=== PATIENT | female | born 1960 | race Caucasian/White ===

== ENCOUNTER → 2018-11-08 | Outpatient (REF) | payer MEDICARE, OTHER ==
[2018-11-08 20:07] LABS: BASO # 0.1 10^3/uL (0.0-0.2); BASO % 0.7 % (0.0-1.0); EOS # 0.3 10^3/uL (0.0-0.50); EOS % 2.3 % (0.0-3.0); HEMATOCRIT 37.2 % (36.0-47.0); HEMOGLOBIN 11.8 g/dl (12.0-15.5); LYMPH # 1.3 10^3/uL (1.5-4.5); LYMPH % 10.9 % (24.0-44.0); MEAN CORPUSCULAR HEMOGLOBIN 31.7 pg (27.0-33.0); MEAN CORPUSCULAR HGB CONC 31.7 g/dl (32.0-36.5); MONO # 0.8 10^3/uL (0.0-0.8); MONO % 6.4 % (0.0-5.0); NEUTROPHILS # 9.8 10^3/uL (1.8-7.7); NEUTROPHILS % 79.1 % (36.0-66.0); PLATELET COUNT, AUTOMATED 318 10^3/uL (150-450); RED BLOOD COUNT 3.72 10^6/uL (4.00-5.40); WHITE BLOOD COUNT 12.3 10^3/uL (4.0-10.0)
[2018-11-08 20:35] LABS: HEMOGLOBIN A1c 5.8 %
[2018-11-08 20:54] LABS: ALBUMIN 3.8 GM/DL (3.2-5.2); BILIRUBIN,TOTAL 0.4 MG/DL (0.2-1.0); CALCIUM LEVEL 9.6 MG/DL (8.5-10.1); CHOLESTEROL RISK RATIO 4.295 (<5); CREATININE FOR GFR 2.25 MG/DL (0.55-1.30); FREE T4 0.91 NG/DL (0.76-1.46); GLOMERULAR FILTRATION RATE 23.8 (>51); POTASSIUM SERUM 6.3 MEQ/L (3.5-5.1); THYROID STIMULATING HORMONE 6.72 uIU/ML (0.358-3.740); TOTAL PROTEIN 7.6 GM/DL (6.4-8.2)
== END ==
LOC: M LABDRWAD 19:15
PROVIDERS: ATTEND Physician Assistant
DX: I10 Essential (primary) hypertension (principal); R73.01 Impaired fasting glucose

== ENCOUNTER → 2018-11-25 | Outpatient (REF) | payer MEDICARE ==
[2018-11-25 20:13] LABS: CALCIUM LEVEL 9.6 MG/DL (8.5-10.1); GLOMERULAR FILTRATION RATE 27.2 (>51); POTASSIUM SERUM 5.5 MEQ/L (3.5-5.1)
[2018-11-25 20:22] LABS: FREE T4 0.86 NG/DL (0.76-1.46); THYROID STIMULATING HORMONE 8.21 uIU/ML (0.358-3.740)
== END ==
LOC: M LABDRWAD 19:18 → M LAB REF 19:18
PROVIDERS: ATTEND Physician Assistant
DX: E87.5 Hyperkalemia (principal); E07.9 Disorder of thyroid, unspecified

== ENCOUNTER → 2018-11-25 | Outpatient (REF) | payer MEDICARE, OTHER | LOC: M LAB REF 19:22 | PROVIDERS: ATTEND Family Medicine | DX: E87.5 Hyperkalemia (principal) ==

== ENCOUNTER → 2019-02-03 | Outpatient (REF) | payer MEDICARE ==
[2019-02-03 19:52] LABS: ALBUMIN 4.3 GM/DL (3.2-5.2); BILIRUBIN,TOTAL 0.3 MG/DL (0.2-1.0); CALCIUM LEVEL 9.7 MG/DL (8.5-10.1); CREATININE FOR GFR 2.03 MG/DL (0.55-1.30); GLOMERULAR FILTRATION RATE 26.8 (>51); POTASSIUM SERUM 5.8 MEQ/L (3.5-5.1); THYROID STIMULATING HORMONE 5.49 uIU/ML (0.358-3.740); TOTAL PROTEIN 7.9 GM/DL (6.4-8.2)
[2019-02-03 20:05] LABS: HEMATOCRIT 39.5 % (36.0-47.0); HEMOGLOBIN 12.4 g/dl (12.0-15.5); MEAN CORPUSCULAR HEMOGLOBIN 30.9 pg (27.0-33.0); MEAN CORPUSCULAR HGB CONC 31.4 g/dl (32.0-36.5); MEAN CORPUSCULAR VOLUME 98.5 fl (80.0-96.0); PLATELET COUNT, AUTOMATED 362 10^3/uL (150-450); RED BLOOD COUNT 4.01 10^6/uL (4.00-5.40); WHITE BLOOD COUNT 13.5 10^3/uL (4.0-10.0)
[2019-02-03 20:06] LABS: AMORPHOUS SEDIMENT LARGE (NEGATIVE); APPEARANCE, URINE TURBID (CLEAR); BACTERIA, URINE AUTO NEGATIVE (NEGATIVE); BILIRUBIN, URINE AUTO NEGATIVE (NEGATIVE); BLOOD, URINE BLOOD 2+ (NEGATIVE); COLOR, URINE YELLOW (YELLOW); GLUCOSE, URINE (UA) AUTO NEGATIVE (NEGATIVE); KETONE, URINE AUTO NEGATIVE (NEGATIVE); LEUKOCYTE ESTERASE, URINE AUTO NEGATIVE (NEGATIVE); MUCUS, URINE SMALL (NEGATIVE); NITRITE, URINE AUTO NEGATIVE (NEGATIVE); PROTEIN, URINE AUTO NEGATIVE (NEGATIVE); RBC, URINE AUTO 116 /HPF (0-3); SPECIFIC GRAVITY URINE AUTO 1.016 (1.002-1.035); SQUAMOUS EPITHELIAL CELL UR AU 5 /HPF (0-6); UROBILINOGEN, URINE AUTO 0.2 mg/dL (0.0-2.0); WBC, URINE AUTO 3 /HPF (0-3)
[2019-02-03 20:47] LABS: MALB URINE SIEMENS 24.2 MG/L; MAU/CREAT RATIO 24.2 MCG/MG (0.0-30.0)
== END ==
LOC: M SFHCADAM 15:03
PROVIDERS: ATTEND Physician Assistant
DX: E03.9 Hypothyroidism, unspecified (principal); N18.3 Chronic kidney disease, stage 3 (moderate)
CPT/HCPCS: 80053; 81001; 82043; 84439; 84443; 85027; G0463

== ENCOUNTER → 2019-03-09 | Outpatient (CLI) | payer MEDICARE ==
--- NOTE | 2019-03-10 11:46 | REP ---
Bilateral foot series: Eight views. History: Pain in both feet. No known injury. Findings: Four views of the left foot demonstrate moderate midfoot osteoarthritis affecting the naviculocuneiform and tarsometatarsal articulations with spur formation and some early fragmentation. There is prominent plantar calcaneal spurring. There are dystrophic soft-tissue calcifications in the plantar soft tissues. The plantar arch appears somewhat flattened. The arthropathy is most compatible with neuropathic. There is some mild osteoarthritis at the first metatarsal phalangeal joint as well. Four views of the right foot demonstrate similar but less prominent findings at least regarding the tarsometatarsal articulations. There is osteoarthritis with spur formation at the naviculocuneiform articulation. Prominent plantar calcaneal spurring is also noted on the right and there are dystrophic soft-tissue calcification in the plantar soft tissues consistent with chronic plantar fasciitis. On the right there is diffuse dorsal soft tissue swelling. There is minimal osteoarthritis at the first MTP joint on the right. 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 Heel spurs and evidence of chronic calcific plantar fasciitis are noted bilaterally. Electronically Signed by Alex Ledesma MD 03/10/2019 01:09 P
== END ==
LOC: M ADAMS 19:14
PROVIDERS: ATTEND Physician Assistant
DX: M19.071 Primary osteoarthritis, right ankle and foot (principal); M19.072 Primary osteoarthritis, left ankle and foot; M77.31 Calcaneal spur, right foot; M77.32 Calcaneal spur, left foot; M79.671 Pain in right foot; M79.672 Pain in left foot

== ENCOUNTER → 2019-03-23 | Outpatient (CLI) | payer MEDICARE ==
--- NOTE | 2019-03-24 23:41 | ECHO ---
DATE OF PROCEDURE: 03/23/2019 DATE OF : 1960 AGE: 58 REFERRING PROVIDER: Astrid Khan NP PATIENT LOCATION: Outpatient. REASON FOR THE ECHOCARDIOGRAM: Edema. 2D MEASUREMENTS: IVS: 1.6 cm LV: 3.7 cm LVPW: 1.6 cm LA: 3.8 cm Aorta: 3.7 cm IVC: 1.4 cm DOPPLER MEASUREMENT: Peak velocity across the aortic valve: 1.4 m/s Peak velocity across the LVOT: 0.95 m/s Mitral E: 0.67, Mitral A: 1.1 with a ratio of 0.6 2D COMMENTS: 1. Normal left ventricular size and systolic function. There is moderately increased left ventricular wall thickness. The estimated global left ventricular systolic ejection fraction is 60-65%. 2. Normal left atrium. Normal right atrium and right ventricle. 3. The atrial septum appeared to be normal without evidence of defect or shunt. 4. Borderline enlarged aortic root at 3.7 cm. 5. No pericardial effusion seen. 6. Normal aortic valve. Mildly calcified mitral annulus with normal anterior mitral valve leaflet motion. Normal tricuspid valve. The pulmonic valve and proximal pulmonary artery branches were not well visualized. 7. The inferior vena was normal in size, central venous pressure is most likely normal. DOPPLER: No significant valvular abnormalities detected. Abnormal relaxation pattern was noted across the mitral valve leaflets as well as the mitral valve annulus consistent with features of grade 1 left ventricular diastolic dysfunction. IMPRESSION: 1. Normal global left ventricular systolic function (dictation cut off) moderate concentric left ventricular hypertrophy. There are some features of left ventricular diastolic dysfunction manifested by abnormal relaxation. 2. The study was technically limited due to poor acoustic window. 3. The aortic root was borderline enlarged at 3.7 cm.
== END ==
LOC: M CARPUL 10:05
PROVIDERS: ATTEND Physician Assistant
DX: R60.0 Localized edema (principal)

== ENCOUNTER → 2019-03-23 | Outpatient (CLI) | payer MEDICARE ==
--- NOTE | 2019-03-24 07:17 | REP ---
MR LUMBAR SPINE WITHOUT CONTRAST: HISTORY: Radiculopathy. Decreased signal intensity on T2-weighted images is present in the lumbar intervertebral discs. The discs are decreased in height. These findings are consistent with disc degeneration. A diffuse disc bulge is present at the L1-2 level. There is minimal compression of the thecal sac. There is hypertrophy of the posterior articulating facets. The L1 nerves exit the neural foramina without compression. A diffuse bulge and small paracentral disc extrusion are present at the L2-3 level. There is inferior migration of disc material. There is hypertrophy of the ligamenta flava and posterior articulating facets These findings produce minimal central canal stenosis. The 2 nerves exit the neural foramina without compression. A diffuse disc bulge is present at the L3-4 level. There is minimal compression of the thecal sac. There is hypertrophy of the posterior articulating facets. The L3 nerves exit the neural foramina without compression. A diffuse disc bulge is present at the L4-5 level. There is hypertrophy of the ligamenta flava and posterior articulating facets. There are 3 mm of grade 1 spondylolisthesis of L4 on 5. These findings produce mild central canal stenosis. The L4 nerves exit the neural foramina without compression. A diffuse disc bulge is present at the L5-S1 level. This abuts the thecal sac. There is hypertrophy of the posterior articulating facets. The L5 nerves exit the neural foramina without compression. The conus medullaris is normal in appearance terminating at the level of the T12-L1 intervertebral disc . A hemangioma is present in the L1-vertebral body. . Increased signal intensity on T2-weighted images is present in the end plates of the T12, and L3-S1 vertebral bodies. This represents degenerative change. IMPRESSION: 1. Diffuse disc bulges at the L1-2 and L3-4 levels with minimal thecal sac compression. 2. Minimal central canal stenosis at the L2-3 level secondary to disc bulge, disc extrusion, ligamentous and facet hypertrophy. 3. Mild central canal stenosis at the L4-5 level secondary to disc bulge, ligamentous and facet hypertrophy and grade 1 spondylolisthesis. 4. Diffuse disc bulge at the L5-S1 level this abuts the thecal sac. Electronically Signed by Nicho Patterson MD 03/24/2019 08:30 A
--- NOTE | 2019-03-24 08:02 | REP ---
MRI BILATERAL KNEES: TECHNIQUE: Axial proton density fat saturation, sagittal proton density T2 STIR, water excitation, coronal proton density, proton density fat saturation. RIGHT KNEE: Extensive complex tears are seen of the anterior and posterior horns of both the medial and lateral menisci. Anterior cruciate ligament is not well visualized and is at least partially torn. Posterior cruciate ligament also is not well visualized and is at least partially torn. Collateral ligaments are intact. Extensor mechanism is intact. Moderate edema is seen anterior to the patellar tendon. There is severe diffuse spurring. There is severe chondromalacia globally. Moderate subchondral cyst changes and marrow edema are seen in the medial femoral condyle and tibial plateau, more mild involving the lateral femoral condyle and tibia plateau. The large joint body appears to be located medial to the patellofemoral joint measuring approximately 1.5 x 0.8 x 1.8 cm. There is a moderate joint effusion. Very small amount of medial popliteal fossa fluid is seen. There is mild fluid in the proximal tibiofibular articulation. Mild venous varicosities are seen in the lateral soft tissues. IMPRESSION: Extensive complex tears of the anterior and posterior horns of both the medial and lateral menisci. The anterior and posterior cruciate ligaments are not well visualized and are least partially torn. Severe global chondromalacia and severe diffuse spurring at the margins of the joint. Subchondral marrow edema and cystic changes seen in the femoral condyles and tibial plateau, more so medially. Moderate joint effusion. Multiple joint bodies. LEFT KNEE: There are tears centrally of the anterior and posterior horns of the lateral meniscus. There are extensive tears with maceration of the anterior and posterior horns of the medial meniscus. The anterior cruciate ligament is not visualized and appears to be torn. There is increased signal involving the posterior cruciate ligament which appears partially torn. There is increased signal in the superior aspect of the medial collateral ligament suggesting a partial tear. Lateral collateral ligament appears intact. Extensor mechanism appears intact. Diffuse severe spurring is noted. There is moderately severe diffuse chondromalacia of the patella. There is severe chondromalacia along the femoral condyles and tibial plateaus with moderate subchondral marrow edema and cystic change in the medial femoral condyle and tibial plateau. There is a moderate joint effusion. There appear to be several joint bodies present. Mild fluid extends into the medial popliteal fossa with two cartilaginous or calcific bodies within the fluid, the larger measuring 1.8 cm in diameter. IMPRESSION: Extensive complex tears of the anterior and posterior horns of the medial meniscus with a macerated appearance. There are tears centrally of the anterior and posterior horns of the lateral meniscus. There appears to be a complete tear of the anterior cruciate ligament. There appears to be a partial tear of the posterior cruciate ligament. There is a partial tear of the superior aspect of the medial collateral ligament. There is severe chondromalacia of the femoral condyles and tibial plateaus with moderate subchondral marrow edema and cystic change in the medial femoral condyle and tibial plateau. There is moderate to moderate severe chondromalacia diffusely of the patellar cartilage. Severe diffuse spurring noted. Moderate joint effusion with several small joint bodies. Small amount of fluid in the medial popliteal fossa with what appear to be two cartilaginous or calcific bodies within this area of fluid the larger measuring 1.8 cm in maximum diameter. Electronically Signed by Johny Marquez MD 03/24/2019 12:42 P
== END ==
LOC: M RAD 10:13
PROVIDERS: ATTEND Nurse Practitioner Family
DX: S83.271A Complex tear of lateral meniscus, current injury, right knee, initial encounter (principal); S83.231A Complex tear of medial meniscus, current injury, right knee, initial encounter; M25.461 Effusion, right knee; S83.232A Complex tear of medial meniscus, current injury, left knee, initial encounter; M25.462 Effusion, left knee; M51.36 Other intervertebral disc degeneration, lumbar region; M51.37 Other intervertebral disc degeneration, lumbosacral region; M25.562 Pain in left knee; M25.561 Pain in right knee; M54.16 Radiculopathy, lumbar region; N18.4 Chronic kidney disease, stage 4 (severe); R60.0 Localized edema

== ENCOUNTER → 2019-03-23 | Outpatient (CLI) | payer MEDICARE ==
--- NOTE | 2019-03-23 16:47 | REP ---
Clinical: Stage IV chronic renal disease. Technique: Real time long scale ultrasound examination using curved array transducer. Findings: Bilateral kidneys are relatively normal in contour, size, echogenicity, and reniform shape. Mildly increased central sinus fat (left greater than right) is consistent with chronic renal disease. No hydronephrosis, nephrolithiasis, cystic or renal mass lesion appreciated. Right kidney measures 10.1 x 4.1 x 4.6 cm. Left kidney measures 10.0 x 3.6 x 4.6 cm. Impression: Findings compatible with chronic renal disease. Electronically Signed by Speedy Lyon MD 03/23/2019 04:39 P
== END ==
LOC: M RAD 10:10
PROVIDERS: ATTEND Internal Medicine Nephrology
DX: N18.4 Chronic kidney disease, stage 4 (severe) (principal)

== ENCOUNTER → 2019-09-09 | Outpatient (REF) | payer MEDICARE ==
[2019-09-09 19:20] LABS: C REACTIVE PROTEIN QUANTITATIV 0.44 MG/DL (0.00-0.30); RHEUMATOID FACTOR QUANT < 10.0 IU/ML (<15.0)
[2019-09-09 19:32] LABS: VITAMIN B12 LEVEL 370 PG/ML
[2019-09-09 20:52] LABS: FOLATE 2.8 NG/ML
[2019-09-14 00:06] LABS: ANA (HEP2) Positive (.); ANA SPINDLE APPARATUS PATTERN >1:1280 (.); FREE LAMBDA LIGHT CHAINS SERUM 28.5 mg/L (5.7-26.3); Lyme Disease IgG Ab 18 kDa Ban Present (.); Lyme Disease IgG Ab 23 kDa Ban Absent (.); Lyme Disease IgG Ab 28 kDa Ban Absent (.); Lyme Disease IgG Ab 30 kDa Ban Absent (.); Lyme Disease IgG Ab 39 kDa Ban Absent (.); Lyme Disease IgG Ab 41 kDa Ban Absent (.); Lyme Disease IgG Ab 45 kDa Ban Absent (.); Lyme Disease IgG Ab 58 kDa Ban Absent (.); Lyme Disease IgG Ab 66 kDa Ban Absent (.); Lyme Disease IgG Ab 93 kDa Ban Absent (.); Lyme Disease IgG West Blot Int Negative (.); Lyme Disease IgG/IgM Antibodie 0.93 ISR (0.00-0.90); Lyme Disease IgM Ab 23 kDa Ban Absent (.); Lyme Disease IgM Ab 39 kDa Ban Absent (.); Lyme Disease IgM Ab 41 kDa Ban Absent (.); Lyme Disease IgM Ab Quantitati 0.88 index (0.00-0.79); Lyme Disease IgM West Blot Int Negative (.)
== END ==
LOC: M SFHCADAM 16:37
PROVIDERS: ATTEND Physician Assistant
DX: R60.9 Edema, unspecified (principal); M25.50 Pain in unspecified joint; D75.89 Other specified diseases of blood and blood-forming organs
CPT/HCPCS: 82607; 82746; 83883; 85652; 86038; 86140; 86431; 86617; 90682; G0008; G0463

== ENCOUNTER → 2019-10-10 | Outpatient (REF) | payer MEDICARE ==
[2019-10-11 10:40] LABS: ALBUMIN 4.38 GM/DL (3.29-5.55); ALBUMIN % 54.8 % (55.8-66.1); ALPHA-1-GLOBULINS 0.44 GM/DL (0.17-0.41)
[2019-10-11 10:41] LABS: ALPHA-1-GLOBULIN % 5.5 % (2.9-4.9); ALPHA-2-GLOBULINS 0.95 GM/DL (0.42-0.99); ALPHA-2-GLOBULINS % 11.9 % (7.1-11.8); BETA-1-GLOBULINS 0.55 GM/DL (0.28-0.60); BETA-1-GLOBULINS % 6.9 % (4.7-7.2); BETA-2-GLOBULINS 0.43 GM/DL (0.19-0.55); BETA-2-GLOBULINS % 5.4 % (3.2-6.5); GAMMA GLOBULIN % 15.5 % (11.1-18.8); GAMMA GLOBULINS 1.24 GM/DL (0.65-1.58)
[2019-10-13 14:08] LABS: FREE LAMBDA LIGHT CHAINS URINE 20.6 mg/L (0.24-6.66); KAPPA/LAMBDA RATIO URINE 12.82 (2.04-10.37)
== END ==
LOC: M SFHCADAM 17:59
PROVIDERS: ATTEND Physician Assistant
DX: D89.89 Other specified disorders involving the immune mechanism, not elsewhere classified (principal)

== ENCOUNTER 2020-11-21 16:54 | Observation (INO) | payer MEDICARE ==
[~2020-11-21] VITALS: Ht 167.6 cm; Wt 214.3 kg
--- OUTSIDE RECORDS SUMMARY | 2020-11-21 17:11 | CCD ---
Author Author [facility] Organization [facility] Address Unknown Phone Unavailable Care Team Providers Care Pipe Straightener Name Role Phone Astrid Khan Unavailable PROBLEMS Type Condition ICD9-CM Code [id number] Code Onset Dates Condition S tatus SNOMED Code Notes Problem Arthritis M19.90 Active 4352495 Problem Essential hypertension I10 Active 77012811 Problem MAYELA (obstructive sleep apnea) G47.33 Active 78 361724 Problem Acquired hypothyroidism E03.9 Active 00428750 2 Problem CKD (chronic kidney disease) stage 4, GFR 15-29 ml/min N18.4 Active 363490912 Problem Moderate episode of recurrent major depressive disorder F33.1 Active 566497785 Problem Positive BRANDIN (antinuclear antibody) R76.8 Acti ve 607532281 Problem Other chronic pain G89.29 Active 63078351 Problem Stage 3 chronic kidney disease N18.3 Active 4 93357386 Problem Morbid obesity E66.01 Active 940903598 Problem Peripheral edema R60.9 Active 061037602 Problem Macrocytosis D75.89 Active 619628625 Problem Secondary hyperparathyroidism N25.81 Active 91 143293 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 992771 07 ALLERGIES No Known Allergies ENCOUNTERS from 1960 to 2020-11-01 Encounter Location Date Provider Diagnosis [address] [place] [address] Oct, Sanford Khan IMMUNIZATIONS Vaccine Route Administration Date Status Influenza (18 yrs & older) Flublok IM Intramuscular Sep 09, 2019 Administered SOCIAL HISTORY Tobacco Use: Social History Observation Description Date Details (start date - stop date) Never Smoker Sex Assigned At : Social History Observation Description Sex Assigned At Unknown Audit Question Answer Notes Total Score: 0 Interpretation: Alcohol Education Language: Question Answer Notes Languages spoken: Somali Domestic Violence: Question Answer Notes Status: Sexual Hx: Question Answer Notes Had sex in the last 12 months (vaginal, oral, or anal)? No LMP: age 47 Have you ever had an STD? No Drug and Alcohol Question Answer Notes Total Score: 0 Interpretation: No problems reported Alcohol Screening: Question Answer Notes Did you have a drink containing alcohol in the past year? No Points 0 Interpretation Negative BMI Care Goal Follow-Up Question Answer Notes Above Normal BMI Follow-Up Dietary management educatio n, guidance, and counseling Tobacco Use: Question Answer Notes Are you a: never smoker REASON FOR REFERRAL No Information VITAL SIGNS No information MEDICATIONS Medication SIG (Take, Route, Frequency, Duration) Notes Start Da te End Date Status Tizanidine HCl 4 MG 1 tablet as needed Orally Three times a day prn Not-Taking Magnesium 250 MG 1 tablet Orally Daily Active Chlorthalidone 25 MG 1 tablet in the morning with food Orally Once a day for 30 day(s) Sep, Active Tylenol Extra Strength 500 MG 1 tablet as needed Orally every 6 hrs Active Cymbalta 60 MG 1 capsule Orally Once a day for 30 day(s) 1 Jan, Active Drisdol 13688 UNIT 1 capsule Orally weekly Active Calcitriol 0.25 MCG 1 capsule Orally Once a day for 30 Days Active MethylPREDNISolone 4 MG TAKE DIRECTED ON PACKAGE Oral for 6 Active Amlodipine Besylate 5 MG 1 tablet Orally Once a day for 30 Active Wheelchair - Bariatric Dx: 25.571 Daily for _ March, Active PROCEDURES No Information RESULTS No Results REASON FOR VISIT appt MEDICAL (GENERAL) HISTORY Type Description Date Medical History MAYELA per Abnormal Home Sleep Study - Decl ined CPAP 2018 Medical History HTN Medical History Chronic LE edema from Venous insuff - wears compression stockings. Medical History Arthritis Feet & Knees (Had Synvisc by Ortho years ago) - Was on Celebrex, then Vicodin, then Trmadol, then Meloxicam and Oxycodone Medical History CKD stage 4 per labs in November 2018 - i mproved stage III Medical History Morbid Obesity Medical History depression - on Citalopram in past. 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 Medical History Diffuse Disc Bulging with Mi nimal spinal Stenosis L2-3, L4-5 - following with [facility] - getting injections Medical History BL knee pain - MRI showed Me niscal tears, moderate to severe chondromalacia with spiurring - had injections with pain solutions Medical History Secondary Hyperparathyroidism Surgical History No know Surgical history Hospitalization History cellulitis 05/2007 Goals Section No Information Health Concerns No Information MEDICAL EQUIPMENT No Information MENTAL STATUS No Information FUNCTIONAL STATUS No Information ASSESSMENTS No Information PLAN OF TREATMENT Medication Medication Name Sig Start Date Stop Date Amlodipine Besylate 5 MG 1 tablet Orally Once a day for 30 Calcitriol 0.25 MCG 1 capsule Orally Once a day for 30 Days Chlorthalidone 25 MG 1 tablet in the morning with food Orally Once a day for 30 day(s) Sep, Cymbalta 60 MG 1 capsule Orally Once a day for 30 day(s) Jan Insurance Providers Payer Name Payer Address Payer Phone Insured Name Patient Relati onship to Insured Coverage Start Date Coverage End Date MEDICARE Part A and B [address] [facility] [address] URSZULA REYNOSO self
--- OUTSIDE RECORDS SUMMARY | 2020-11-21 17:11 | CCD ---
Author Author [facility] Organization [facility] Address Unknown Phone Unavailable Care Team Providers Care Content Checker Name Role Phone Astrid Khan Unavailable PROBLEMS Type Condition ICD9-CM Code [id number] Code Onset Dates Condition S tatus SNOMED Code Notes Problem Arthritis M19.90 Active 2641341 Problem Essential hypertension I10 Active 19771945 Problem MAYELA (obstructive sleep apnea) G47.33 Active 78 224572 Problem Acquired hypothyroidism E03.9 Active 85231209 2 Problem CKD (chronic kidney disease) stage 4, GFR 15-29 ml/min N18.4 Active 460868972 Problem Moderate episode of recurrent major depressive disorder F33.1 Active 093427650 Problem Positive BRANDIN (antinuclear antibody) R76.8 Acti ve 289087588 Problem Other chronic pain G89.29 Active 28491076 Problem Stage 3 chronic kidney disease N18.3 Active 4 68231373 Problem Morbid obesity E66.01 Active 032881662 Problem Peripheral edema R60.9 Active 339265340 Problem Macrocytosis D75.89 Active 386819519 Problem Secondary hyperparathyroidism N25.81 Active 91 302330 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 054617 07 ALLERGIES No Known Allergies ENCOUNTERS from 1960 to 2020-08-29 Encounter Location Date Provider Diagnosis [address] [place] [address] Dec, Sanford Khan Lumbar radiculopathy M54.16 IMMUNIZATIONS Vaccine Route Administration Date Status Influenza (18 yrs & older) Flublok IM Intramuscular Sep 09, 2019 Administered SOCIAL HISTORY Tobacco Use: Social History Observation Description Date Details (start date - stop date) Never Smoker Sex Assigned At : Social History Observation Description Sex Assigned At Unknown Audit Question Answer Notes Total Score: 0 Interpretation: Alcohol Education Language: Question Answer Notes Languages spoken: [place] Domestic Violence: Question Answer Notes Status: Sexual [...] MEDICATIONS Medication SIG (Take, Route, Frequency, Duration) Start Date En d Date Status Cymbalta 60 MG 1 capsule Orally Once a day for 30 day(s) Jan, Active Magnesium 250 MG 1 tablet Orally Daily Ac tive Chlorthalidone 25 MG 1 tablet in the morning with food Orally Once a day for 30 day(s) Sep, Active Amlodipine Besylate 5 MG 1 tablet Orally Once a day for 30 Days Active Tylenol Extra Strength 500 MG 1 tablet as needed Orally every 6 hrs Active Drisdol 05319 UNIT 1 capsule Orally weekly Active MethylPREDNISolone 4 MG TAKE DIRECTED ON PACKAGE Oral for 6 Active Calcitriol 0.25 MCG 1 capsule Orally Once a day for 30 Days Active Tizanidine HCl 4 MG 1 tablet as needed Orally Three times a day prn Not-Taking Wheelchair - Bariatric Dx: 25.571 Daily for _ March, Active PROCEDURES No Information RESULTS No Results REASON FOR VISIT amlodipine,calcitriol,duloxetine 60 MEDICAL (GENERAL) HISTORY Type Description Date Medical [...] No Information FUNCTIONAL STATUS No Information ASSESSMENTS Encounter Date Diagnosis Notes Dec, Lumbar radiculopathy (ICD-10 - M54.16) PLAN OF TREATMENT Medication Medication Name Sig Start Date Stop Date Cymbalta 60 MG 1 capsule Orally Once a day for 30 day(s) Jan Calcitriol 0.25 MCG 1 capsule Orally Once a day for 30 Days Chlorthalidone 25 MG 1 tablet in the morning with food Orally Once a day for 30 day(s) Sep, Amlodipine Besylate 5 MG 1 tablet Orally Once a day for 30 Days Insurance Providers Payer Name Payer Address Payer Phone Insured Name Patient Relati onship to Insured Coverage Start Date Coverage End Date MEDICARE Part A and B [address] [facility] [id number] [phone] URSZULA REYNOSO
--- OUTSIDE RECORDS SUMMARY | 2020-11-21 17:11 | CCD ---
Author Author [facility] Organization [facility] Address Unknown Phone Unavailable Care Team Providers Care Government Minister Name Role Phone SandrastevensonIglesia Unavailable PROBLEMS Type Condition ICD9-CM Code [id number] Code Onset Dates Condition S tatus SNOMED Code Notes Problem Arthritis M19.90 Active 8466301 Problem Essential hypertension I10 Active 71992865 Problem MAYELA (obstructive sleep apnea) G47.33 Active 78 334466 Problem Acquired hypothyroidism E03.9 Active 63967676 2 Problem CKD (chronic kidney disease) stage 4, GFR 15-29 ml/min N18.4 Active 284821416 Problem Moderate episode of recurrent major depressive disorder F33.1 Active 774805427 Problem Positive BRANDIN (antinuclear antibody) R76.8 Acti ve 423525315 Problem Other chronic pain G89.29 Active 31629895 Problem Stage 3 chronic kidney disease N18.3 Active 4 28618145 Problem Morbid obesity E66.01 Active 186447155 Problem Peripheral edema R60.9 Active 727391681 Problem Macrocytosis D75.89 Active 942745949 Problem Secondary hyperparathyroidism N25.81 Active 91 104419 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 992970 07 ALLERGIES No Known Allergies ENCOUNTERS from 1960 to 2020-10-10 Encounter Location Date Provider Diagnosis [address] [place] [address] Oct, Vinnie Khan IMMUNIZATIONS Vaccine Route Administration Date Status [...] Education Language: Question Answer Notes Languages spoken: [place] Konger Domestic Violence: Question Answer Notes Status: Sexual [...] Notes Start Da te End Date Status MethylPREDNISolone 4 MG TAKE DIRECTED ON PACKAGE Oral for 6 Active Magnesium 250 MG 1 tablet Orally Daily Active Chlorthalidone 25 MG 1 tablet in the morning with food Orally Once a day for 30 day(s) Sep, Active Tylenol Extra Strength 500 MG 1 tablet as needed Orally every 6 hrs Active Amlodipine Besylate 5 MG 1 tablet Orally Once a day for 30 Active Drisdol 74943 UNIT 1 capsule Orally weekly Active Tizanidine HCl 4 MG 1 tablet as needed Orally Three times a day prn Not-Taking Cymbalta 60 MG 1 capsule Orally Once a day for 30 day(s) Jan, Active Calcitriol 0.25 MCG 1 capsule Orally Once a day for 30 Days Active Wheelchair - Bariatric Dx: 25.571 Daily for _ March, Active PROCEDURES No Information RESULTS No Results REASON FOR VISIT calcitriol MEDICAL (GENERAL) HISTORY Type Description Date Medical [...] Medication Name Sig Start Date Stop Date Calcitriol 0.25 MCG 1 capsule Orally Once a day for 30 Days Cymbalta 60 MG 1 capsule Orally Once a day for 30 day(s) Jan Chlorthalidone 25 MG 1 tablet in the morning with food Orally Once a day for 30 day(s) Sep, Amlodipine Besylate 5 MG 1 tablet Orally Once a day for 30 Insurance Providers Payer Name Payer Address Payer Phone Insured Name Patient Relati onship to Insured Coverage Start Date Coverage End Date MEDICARE Part A and B [address] [facility] [phone] URSZULA REYNOSO self
--- OUTSIDE RECORDS SUMMARY | 2020-11-21 17:11 | CCD ---
Author Author [facility] Organization [facility] Address Unknown Phone Unavailable Care Team Providers Care Strip Cutter Name Role Phone Alexandraalma deliaIglesia Unavailable PROBLEMS Type Condition ICD9-CM Code [id number] Code Onset Dates Condition S tatus SNOMED Code Notes Problem Arthritis M19.90 Active 9651838 Problem Essential hypertension I10 Active 29203811 Problem MAYELA (obstructive sleep apnea) G47.33 Active 78 394191 Problem Acquired hypothyroidism E03.9 Active 25119118 2 Problem CKD (chronic kidney disease) stage 4, GFR 15-29 ml/min N18.4 Active 037333300 Problem Moderate episode of recurrent major depressive disorder F33.1 Active 388530604 Problem Positive BRANDIN (antinuclear antibody) R76.8 Acti ve 671834678 Problem Other chronic pain G89.29 Active 12849505 Problem Stage 3 chronic kidney disease N18.3 Active 4 16932261 Problem Morbid obesity E66.01 Active 315758814 Problem Peripheral edema R60.9 Active 738441420 Problem Macrocytosis D75.89 Active 267130739 Problem Secondary hyperparathyroidism N25.81 Active 91 550616 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 394010 07 ALLERGIES No Known Allergies ENCOUNTERS from 1960 to 2020-11-17 Encounter Location Date Provider Diagnosis [address] [place] [address] Nov, Vinnie Khan IMMUNIZATIONS Vaccine Route Administration Date [...] Education Language: Question Answer Notes Languages spoken: Martiniquais Domestic Violence: Question Answer Notes Status: Sexual [...] for 30 day(s) 1 Jan, Active Drisdol 03624 UNIT 1 capsule Orally weekly Active Calcitriol 0.25 MCG 1 capsule Orally Once a day for 30 Days Active MethylPREDNISolone 4 MG TAKE DIRECTED ON PACKAGE Oral for 6 Active Amlodipine Besylate 5 MG 1 tablet Orally Once a day for 30 Active Wheelchair - Bariatric Dx: 25.571 Daily for _ March, Active PROCEDURES No Information RESULTS No Results REASON FOR VISIT legs swollen MEDICAL (GENERAL) HISTORY Type Description Date Medical [...] Once a day for 30 day(s) Jan Next Appt Details Provider Name:Astrid Khan, 2020-11 01:30:00 PM, [address], [place], [address], Insurance Providers Payer Name Payer Address Payer Phone Insured Name Patient Relati onship to Insured Coverage Start Date Coverage End Date MEDICARE Part A and B [address] [id number] [id number]
--- OUTSIDE RECORDS SUMMARY | 2020-11-21 17:11 | CCD ---
Author Author [facility] Organization [facility] Address Unknown Phone Unavailable Care Team Providers Care Teacher Of Gifted Students Name Role Phone Jumalon, M Angle STEAM DRIER OPERATOR Unavailable Unavailable Jumalon, M Angle STEAM DRIER OPERATOR Unavailable Unavailable Jumalon, M Angle STEAM DRIER OPERATOR Unavailable Unavailable Jumalon, M Angle STEAM DRIER OPERATOR Unavailable Unavailable Jumalon, M Angle STEAM DRIER OPERATOR Unavailable Unavailable Jumalon, M Angle STEAM DRIER OPERATOR Unavailable Unavailable Jumalon, M Angle STEAM DRIER OPERATOR Unavailable Unavailable Jumalon, M Angle STEAM DRIER OPERATOR Unavailable Unavailable Jumalon, M Angle STEAM DRIER OPERATOR Unavailable Unavailable Jumalon, M Angle STEAM DRIER OPERATOR Unavailable Unavailable Jumalon, M Angle STEAM DRIER OPERATOR Unavailable Unavailable Jumalon, M Angle STEAM DRIER OPERATOR Unavailable Unavailable Jumalon, M Angle STEAM DRIER OPERATOR Unavailable Unavailable Jumalon, M Angle STEAM DRIER OPERATOR Unavailable Unavailable Jumalon, M Angle STEAM DRIER OPERATOR Unavailable Unavailable Jumalon, M Angle STEAM DRIER OPERATOR Unavailable Unavailable Jumalon, M Angle STEAM DRIER OPERATOR Unavailable Unavailable Jumalon, M Angle STEAM DRIER OPERATOR Unavailable Unavailable Jumalon, M Angle STEAM DRIER OPERATOR Unavailable Unavailable Jumalon, M Angle STEAM DRIER OPERATOR Unavailable Unavailable Jumalon, M Angle STEAM DRIER OPERATOR Unavailable Unavailable Jumalon, M Angle STEAM DRIER OPERATOR Unavailable Unavailable Jumalon, M Angle STEAM DRIER OPERATOR Unavailable Unavailable Jumalon, M Angle STEAM DRIER OPERATOR Unavailable Unavailable Jumalon, M Angle STEAM DRIER OPERATOR Unavailable Unavailable Jumalon, M Angle STEAM DRIER OPERATOR Unavailable Unavailable Jumalon, M Angle STEAM DRIER OPERATOR Unavailable Unavailable Jumalon, M Angle STEAM DRIER OPERATOR Unavailable Unavailable Rohith Moore MD Unavailable Unavailable BolRohith salgado MD Unavailable Unavailable BolRohith salgado MD Unavailable Unavailable BolRohith salgado MD Unavailable Unavailable BolRohith salgado MD Unavailable Unavailable BolRohith salgado MD Unavailable Unavailable BolRohith salgado MD Unavailable Unavailable BolRohith salgado MD Unavailable Unavailable BolRohith salgado MD Unavailable Unavailable BolRohith salgado MD Unavailable Unavailable BolRohith salgado MD Unavailable Unavailable BolRohith salgado MD Unavailable Unavailable BolRohith salgado MD Unavailable Unavailable BolRohith salgado MD Unavailable Unavailable BolRohith salgado MD Unavailable Unavailable BolRohith salgado MD Unavailable Unavailable BolRohith salgado MD Unavailable Unavailable Rohith Moore MD Unavailable Unavailable BolRohith salgado MD Unavailable Unavailable Rohith Moore MD Unavailable Unavailable BolRohith salgaod MD Unavailable Unavailable Rohith Moore MD Unavailable Unavailable BolRohith salgado MD Unavailable Unavailable Rohith Moore MD Unavailable Unavailable BolRohith salgado MD Unavailable Unavailable BolRohith salgado MD Unavailable Unavailable BolRohith salgado MD Unavailable Unavailable BolRohith salgado MD Unavailable Unavailable Rohith Moore MD Unavailable Unavailable BolRohith salgado MD Unavailable Unavailable Rohith Moore MD Unavailable Unavailable BolRohith salgado MD Unavailable Unavailable BolRohith salgado MD Unavailable Unavailable BolRohith salgado MD Unavailable Unavailable BolRohith salgado MD Unavailable Unavailable BolRohith salgado MD Unavailable Unavailable BolRohith salgado MD Unavailable Unavailable BolRohith salgado MD Unavailable Unavailable BolRohith salgado MD Unavailable Unavailable Bolla, S Jg MD Unavailable Unavailable Bolla, S Jg MD Unavailable Unavailable Bolla, S Jg MD Unavailable Unavailable Bolla, S Jg MD Unavailable Unavailable Bolla, S Jg MD Unavailable Unavailable Bolla, S Jg MD Unavailable Unavailable Bolla, S Jg MD Unavailable Unavailable Bolla, S Gj MD Unavailable Unavailable Bolla, S Jg MD Unavailable Unavailable Re-disclosure Warning The records that you are about to access may contain information from federally-assisted alcohol or drug abuse programs. If such information is present, then the following federally mandated warning applies: This information has been disclosed to you from records protected by federal confidentiality rules (42 CFR part 2). The federal rules prohibit you from making any further disclosure of this information unless further disclosure is expressly permitted by the written consent of the person to whom it pertains or as otherwise permitted by 42 CFR part 2. A general authorization for the release of medical or other information is NOT sufficient for this purpose. The Federal rules restrict any use of the information to criminally investigate or prosecute any alcohol or drug abuse patient.The records that you are about to access may contain highly sensitive health information, the redisclosure of which is protected by Article 27-F of the [facility] Public Health law. If you continue you may have access to information: Regarding HIV / AIDS; Provided by facilities licensed or operated by the [facility] Office of Mental Health; or Provided by the [facility] Office for People With Developmental Disabilities. If such information is present, then the following [facility] mandated warning applies: This information has been disclosed to you from confidential records which are protected by state law. State law prohibits you from making any further disclosure of this information without the specific written consent of the person to whom it pertains, or as otherwise permitted by law. Any unauthorized further disclosure in violation of state law may result in a fine or prison sentence or both. A general authorization for the release of medical or other information is NOT sufficient authorization for further disc losure. Family History Family Member Name Family Member Gender Family Member Status Date o f Status Description Data Source(s) Unknown Unknown Problem [facility] ([facility] Encounters Encounter Providers Location Date Indications Data Source(s ) Unknown [address] [facility], [facility] [address] 11/15/2020 12:00:00 AM EST eCW1 ([facility]) Unknown [address] [facility] [address] 11/07/2020 12:00:00 AM EST eCW1 ([facility]) Unknown [address] [facility] [address] 10/30/2020 12:00:00 AM EST eCW1 ([facility]) Unknown [address] [facility] [address] 10/30/2020 12:00:00 AM EST eCW1 ([facility]) Unknown [address] [facility] [address] 10/09/2020 12:00:00 AM EST eCW1 ([facility]) Angle Quesada, ABLE BODIED WATCHMAN: [address], [facility] [address], Ph. Attender: Angle Quesada [facility] - [facility] 06/11/2020 12:00:00 AM EDT ATHE NA ([facility]) Jg Moore MD: [address], [address] [place] [id number]- [facility], Ph. [phone] Attender: Jg Moore MD [place] - [facility] 04/09/2020 12:00:00 AM EDT MEENA ([facility]) Jg Moore MD: [address], [place] [address], Ph. [phone] Attender: Jg Moore MD [place] - [facility] 04/09/2020 12:00:00 AM EDT MEENA ([facility]) Unknown [address] [facility] [address] 01/24/2020 12:00:00 AM EDT eCW1 ([facility]) Jg Moore MD: [address], [place] [address], Ph. Attender: Jg Moore MD [place] - [facility] 12/28/2019 12:00:00 AM EST MEENA ([facility]) Jg Moore MD: [address], [place] [address], Ph. Attender: Jg Moore MD [place] - [facility] 12/28/2019 12:00:00 AM EST MEENA ([facility]) Jg Moore MD: [address], [place] [address], Ph. Attender: Jg Moore MD [place] - [facility] 12/28/2019 12:00:00 AM EST MEENA ([facility]) [address] [address] 12/09/2019 12:00:00 AM EST eCW1 ([facility]) [address] [address] 12/09/2019 12:00:00 AM EST eCW1 ([facility]) [address] [address] 12/06/2019 12:00:00 AM EST eCW1 ([facility]) Angle Quesada, ABLE BODIED WATCHMAN: [address], [place] [address], Ph. Attender: Angle Quesada [facility] 11/24/2019 12:00:00 AM EST ATHE NA ([facility]) Angle Quesada, ABLE BODIED WATCHMAN: [address], [place] [address], Ph. Attender: Angle Quesada [facility] 11/24/2019 12:00:00 AM EST ATHE NA ([facility]) Angle Quesada, ABLE BODIED WATCHMAN: [address], [place] [address], Ph. [facility] 11/24/2019 12:00:00 AM EST ATHE NA ([facility]) Angle Quesada, ABLE BODIED WATCHMAN: [address], [place] [address], Ph. [facility] 11/24/2019 12:00:00 AM EST ATHE NA ([facility]) [place] [address] [facility] [address] 11/15/2019 12:00:00 AM EST eCW1 ([facility]) [address] [place] [address] 11/07/2019 12:00:00 AM EST eCW1 ([facility]) Medications Medication Brand Name Start Date Product Form Dose Route Admi nistrative Instructions Pharmacy Instructions Status Indications Reaction Description Data Source(s) 5 mg 10/10/2020 12:00:00 AM EST tablet 30 TAKE ONE TABLET BY MOUTH EVERY DAY TAKE ONE TABLET BY MOUTH EVERY DAY SOLD: 10/13/2020 [facility] 0.25 mcg 10/10/2020 12:00:00 AM EST capsule 30 TAKE ONE CAPSULE BY MOUTH EVERY DAY TAKE ONE CAPSULE BY MOUTH EVERY DAY SOLD: 10/13/2020 [facility] 60 mg 08/31/2020 12:00:00 AM EDT capsule,delayed release (DR/EC) 30 TAKE ONE CAPSULE BY MOUTH EVERY DAY TAKE ONE CAPSULE BY MOUTH EVERY DAY SOLD: 09/06/2020 [facility] 60 mg 07/19/2020 12:00:00 AM EDT capsule,delayed release (DR/EC) 30 TAKE ONE CAPSULE BY MOUTH EVERY DAY TAKE ONE CAPSULE BY MOUTH EVERY DAY SOLD: 07/22/2020 [facility] 60 mg 06/11/2020 12:00:00 AM EDT capsule,delayed release (DR/EC) 30 TAKE ONE CAPSULE BY MOUTH EVERY DAY TAKE ONE CAPSULE BY MOUTH EVERY DAY SOLD: 06/14/2020 [facility] 60 mg 03/14/2020 12:00:00 AM EDT capsule,delayed release (DR/EC) 30 TAKE ONE CAPSULE BY MOUTH EVERY DAY TAKE ONE CAPSULE BY MOUTH EVERY DAY SOLD: 03/19/2020 [facility] 60 mg 03/14/2020 12:00:00 AM EDT capsule,delayed release (DR/EC) 30 TAKE ONE CAPSULE BY MOUTH EVERY DAY TAKE ONE CAPSULE BY MOUTH EVERY DAY SOLD: 03/19/2020 [facility] 60 mg 02/03/2020 12:00:00 AM EDT capsule,delayed release (DR/EC) 30 TAKE ONE CAPSULE BY MOUTH EVERY DAY TAKE ONE CAPSULE BY MOUTH EVERY DAY SOLD: 02/06/2020 [facility] Calcitriol 0.13277 MG Oral Capsule 0.25 mcg CALCITRIOL 01/24/2020 12:00:00 AM EDT capsule 30 TAKE ONE CAPSULE BY MOUTH SLAVA DAY TAKE ONE CAPSULE BY MOUTH EVERY DAY SOLD: 03/06/2020 [facility] 5 mg 01/24/2020 12:00:00 AM EDT tablet 30 TAKE ONE TABLET BY MOUTH EVERY DAY TAKE ONE TABLET BY MOUTH EVERY DAY SOLD: 03/06/2020 [facility] 5 mg 01/24/2020 12:00:00 AM EDT tablet 30 TAKE ONE TABLET BY MOUTH EVERY DAY TAKE ONE TABLET BY MOUTH EVERY DAY SOLD: 01/26/2020 [facility] Calcitriol 0.52815 MG Oral Capsule 0.25 mcg CALCITRIOL 01/24/2020 12:00:00 AM EDT capsule 30 TAKE ONE CAPSULE BY MOUTH SLAVA DAY TAKE ONE CAPSULE BY MOUTH EVERY DAY SOLD: 07/11/2020 [facility] 5 mg 01/24/2020 12:00:00 AM EDT tablet 30 TAKE ONE TABLET BY MOUTH EVERY DAY TAKE ONE TABLET BY MOUTH EVERY DAY SOLD: 05/31/2020 [facility] 5 mg 01/24/2020 12:00:00 AM EDT tablet 30 TAKE ONE TABLET BY MOUTH EVERY DAY TAKE ONE TABLET BY MOUTH EVERY DAY SOLD: 08/21/2020 [facility] 5 mg 01/24/2020 12:00:00 AM EDT tablet 30 TAKE ONE TABLET BY MOUTH EVERY DAY TAKE ONE TABLET BY MOUTH EVERY DAY SOLD: 07/02/2020 [facility] 0.25 mcg 01/24/2020 12:00:00 AM EDT capsule 30 TAKE ONE CAPSULE BY MOUTH EVERY DAY TAKE ONE CAPSULE BY MOUTH EVERY DAY SOLD: 08/21/2020 [facility] Calcitriol 0.06247 MG Oral Capsule 0.25 mcg CALCITRIOL 01/24/2020 12:00:00 AM EDT capsule 30 TAKE ONE CAPSULE BY MOUTH EV SLAVA DAY TAKE ONE CAPSULE BY MOUTH EVERY DAY SOLD: 04/12/2020 [facility] Calcitriol 0.20916 MG Oral Capsule 0.25 mcg CALCITRIOL 01/24/2020 12:00:00 AM EDT capsule 30 TAKE ONE CAPSULE BY MOUTH EV SLAVA DAY TAKE ONE CAPSULE BY MOUTH EVERY DAY SOLD: 05/31/2020 [facility] 5 mg 01/24/2020 12:00:00 AM EDT tablet 30 TAKE ONE TABLET BY MOUTH EVERY DAY TAKE ONE TABLET BY MOUTH EVERY DAY SOLD: 04/12/2020 [facility] Calcitriol 0.67368 MG Oral Capsule 0.25 mcg CALCITRIOL 01/24/2020 12:00:00 AM EDT capsule 30 TAKE ONE CAPSULE BY MOUTH EV SLAVA DAY TAKE ONE CAPSULE BY MOUTH EVERY DAY SOLD: 01/26/2020 [facility] 60 mg 12/26/2019 12:00:00 AM EST capsule,delayed release (DR/EC) 30 TAKE ONE CAPSULE BY MOUTH EVERY DAY TAKE ONE CAPSULE BY MOUTH EVERY DAY SOLD: 12/28/2019 [facility] 5 mg 11/04/2019 12:00:00 AM EST tablet 30 TAKE ONE TABLET BY MOUTH EVERY DAY TAKE ONE TABLET BY MOUTH EVERY DAY SOLD: 12/12/2019 [facility] 5 mg 11/04/2019 12:00:00 AM EST tablet 30 TAKE ONE TABLET BY MOUTH EVERY DAY TAKE ONE TABLET BY MOUTH EVERY DAY SOLD: 11/08/2019 [facility] 25 mg 09/09/2019 12:00:00 AM EST tablet 30 TAKE 1 TABLET BY MOUTH IN THE MORNING WITH FOOD ONCE A DAY TAKE 1 TABLET BY MOUTH IN THE MORNING WI TH FOOD ONCE A DAY SOLD: 02/06/2020 [facility] 25 mg 09/09/2019 12:00:00 AM EST tablet 30 TAKE 1 TABLET BY MOUTH IN THE MORNING WITH FOOD ONCE A DAY TAKE 1 TABLET BY MOUTH IN THE MORNING WI TH FOOD ONCE A DAY SOLD: 10/23/2019 [facility] 25 mg 09/09/2019 12:00:00 AM EST tablet 30 TAKE 1 TABLET BY MOUTH IN THE MORNING WITH FOOD ONCE A DAY TAKE 1 TABLET BY MOUTH IN THE MORNING [facility] FOOD ONCE A DAY SOLD: 11/24/2019 [facility] 25 mg 09/09/2019 12:00:00 AM EST tablet 30 TAKE 1 TABLET BY MOUTH IN THE MORNING WITH FOOD ONCE A DAY TAKE 1 TABLET BY MOUTH IN THE MORNING [facility] FOOD ONCE A DAY SOLD: 12/28/2019 [facility] 25 mg 09/09/2019 12:00:00 AM EST tablet 30 TAKE 1 TABLET BY MOUTH IN THE MORNING WITH FOOD ONCE A DAY TAKE 1 TABLET BY MOUTH IN THE MORNING [facility] FOOD ONCE A DAY SOLD: 09/21/2019 [facility] 25 mg 09/09/2019 12:00:00 AM EST tablet 30 TAKE 1 TABLET BY MOUTH IN THE MORNING WITH FOOD ONCE A DAY TAKE 1 TABLET BY MOUTH IN THE MORNING [facility] FOOD ONCE A DAY SOLD: 03/19/2020 [facility] 5 mg 08/31/2019 12:00:00 AM EDT tablet 30 TAKE ONE TABLET BY MOUTH EVERY DAY TAKE ONE TABLET BY MOUTH EVERY DAY SOLD: 10/06/2019 [facility] Calcitriol 0.05316 MG Oral Capsule 0.25 mcg CALCITRIOL 07/26/2019 12:00:00 AM EDT capsule 30 TAKE ONE CAPSULE BY MOUTH EV SLAVA DAY TAKE ONE CAPSULE BY MOUTH EVERY DAY SOLD: 11/12/2019 [facility] Calcitriol 0.96792 MG Oral Capsule 0.25 mcg CALCITRIOL 07/26/2019 12:00:00 AM EDT capsule 30 TAKE ONE CAPSULE BY MOUTH EV SLAVA DAY TAKE ONE CAPSULE BY MOUTH EVERY DAY SOLD: 12/24/2019 [facility] Calcitriol 0.81550 MG Oral Capsule 0.25 mcg CALCITRIOL 07/26/2019 12:00:00 AM EDT capsule 30 TAKE ONE CAPSULE BY MOUTH EV SLAVA DAY TAKE ONE CAPSULE BY MOUTH EVERY DAY SOLD: 10/06/2019 [facility] 60 mg 05/27/2019 12:00:00 AM EDT capsule,delayed release (DR/EC) 30 TAKE ONE CAPSULE BY MOUTH EVERY DAY TAKE ONE CAPSULE BY MOUTH EVERY DAY SOLD: 10/06/2019 [facility] 60 mg 05/27/2019 12:00:00 AM EDT capsule,delayed release (DR/EC) 30 TAKE ONE CAPSULE BY MOUTH EVERY DAY TAKE ONE CAPSULE BY MOUTH EVERY DAY SOLD: 11/12/2019 [facility] methylprednisolone 4 mg tablets in a dose pack [id number] completed methylprednisolone 4 mg tablets in a dose pack MEENA ([facility]) methylprednisolone 4 mg tablets in a dose pack [id number] completed methylprednisolone 4 mg tablets in a dose pack MEENA ([facility]) methylprednisolone 4 mg tablets in a dose pack [id number] completed methylprednisolone 4 mg tablets in a dose pack MEENA ([facility]) methylprednisolone 4 mg tablets in a dose pack [id number] completed methylprednisolone 4 mg tablets in a dose pack MEENA ([facility]) Insurance Providers Payer name Policy type / Coverage type Policy ID Covered constitution party ID Covered constitution party's relationship to lewis Policy Lewis Plan Information MEDICARE [id number] SP [id number] [facility]-Medicare Part B [id number] ANS-Medicare Part B [id number] [facility]-Medicare Part B [id number] MEDICARE [id number] SP [id number] ANS-Medicare Part B [id number] Medicare Natl Gov't Servi Medicare Primary [id number] Self [id number] Medicare Natl Gov't Servi Medicare Primary [id number] Self [id number] ANSI-Medicare Part B [id number] ANSI-Medicare Part B [id number] ANSI-Medicare Part B [id number] ANSI-Medicare Part B [id number] ANSI-Medicare Part B [id number] [facility] Community Plan Commercial [id number] Self [id number] [place] [id number] Self [id number] [facility] Community Plan Commercial [id number] Self [id number] [place] Primary [id number] Self [id number] MEDICARE [id number] SP [id number] A [facility] [id number] SP [id number] [facility] [id number] SP [id number] [facility] Community Plan Commercial [id number] Self [id number] [facility] Community Plan Commercial [id number] Self [id number] [employer] O [id number] S [id number] [employer] O [id number] S [id number] [employer] [id number] SP [id number] P UNAVAILABLE UNAVAILA BLE OTHER WORKERS COMPENSATION [id number] SP [id number] Problems, Conditions, and Diagnoses Code Display Name Description Problem Type Effective Dates Data Source(s) N18.3 Chronic kidney disease stage 3 Stage 3 chronic kidney disease Problem 12/09/2019 12:00:00 AM EST eCW1 ([facility]) R76.8 [id number] Positive BRANDIN (antinuclear antibody) Probl em 12/09/2019 12:00:00 AM EST eCW1 ([facility]) N18.3 Chronic kidney disease stage 3 Stage 3 chronic kidney disease Problem 12/09/2019 12:00:00 AM EST eCW1 ([facility]) R76.8 [id number] Positive BRANDIN (antinuclear antibody) Probl em 12/09/2019 12:00:00 AM EST eCW1 ([facility]) Surgeries/Procedures Procedure Description Date Indications Data Source(s) TELEPHONE (INTERMEDIATE) 12/09/2019 12:00:00 AM EST eCW1 ([facility]) Results ID Date Data Source [id number] 04/09/2020 12:00:00 AM EDT MEENA ([facility]) Name Value Range Interpretation Code Description Data Faiza rce(s) Supporting Document(s) ID Date Data Source [id number] 04/09/2020 12:00:00 AM EDT [facility] Name Value Range Interpretation Code Description Data Faiza rce(s) Supporting Document(s) SARS-CoV-2 [facility] This lab was ordered by [facility]-COVID19 and reported by [facility]. Procedure Vital Signs ID Date Data Source UNK Name Value Range Interpretation Code Description Data Source(s) Systolic blood pressure 152 mm[Hg] 152 mm[Hg] A THENA ([facility]) Body height 66 [in_i] 66 [in_i] MEENA ([facility]) Diastolic blood pressure 95 mm[Hg] 95 mm[Hg] MEENA ([facility]) Systolic blood pressure 152 mm[Hg] 152 mm[Hg] A THENA ([facility]) Body height 66 [in_i] 66 [in_i] MEENA ([facility]) Diastolic blood pressure 95 mm[Hg] 95 mm[Hg] MEENA ([facility]) Systolic blood pressure 152 mm[Hg] 152 mm[Hg] A THENA ([facility]) Body height 66 [in_i] 66 [in_i] MEENA ([facility]) Diastolic blood pressure 95 mm[Hg] 95 mm[Hg] MEENA ([facility]) Systolic blood pressure 152 mm[Hg] 152 mm[Hg] A THENA ([facility]) Body height 66 [in_i] 66 [in_i] MEENA ([facility]) Diastolic blood pressure 95 mm[Hg] 95 mm[Hg] MEENA ([facility]) Patient Treatment Plan of Care Planned Activity Planned Date Details Description Data Source (s) methylprednisolone 4 mg tablets in a dose pack MEENA ([facility]) methylprednisolone 4 mg tablets in a dose pack MEENA ([facility]) methylprednisolone 4 mg tablets in a dose pack MEENA ([facility]) methylprednisolone 4 mg tablets in a dose pack MEENA ([facility])
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
--- OUTSIDE RECORDS SUMMARY | 2020-11-21 17:11 | CCD ---
Author Author [facility] Organization [facility] Address Unknown Phone Unavailable Care Team Providers Care Welt Beater Name Role Phone SonaliSanford jerezina Unavailable PROBLEMS Type Condition ICD9-CM Code [id number] Code Onset Dates Condition S tatus SNOMED Code Notes Problem Arthritis M19.90 Active 5561841 Problem Essential hypertension I10 Active 32241147 Problem MAYELA (obstructive sleep apnea) G47.33 Active 78 760669 Problem Acquired hypothyroidism E03.9 Active 30485741 2 Problem CKD (chronic kidney disease) stage 4, GFR 15-29 ml/min N18.4 Active 921755326 Problem Moderate episode of recurrent major depressive disorder F33.1 Active 634559065 Problem Positive BRANDIN (antinuclear antibody) R76.8 Acti ve 613594627 Problem Other chronic pain G89.29 Active 83663108 Problem Stage 3 chronic kidney disease N18.3 Active 4 31871217 Problem Morbid obesity E66.01 Active 412645538 Problem Peripheral edema R60.9 Active 052632114 Problem Macrocytosis D75.89 Active 839193863 Problem Secondary hyperparathyroidism N25.81 Active 91 484237 Problem [place]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 672006 07 ALLERGIES No Known Allergies ENCOUNTERS from 1960 to 2020-11-08 Encounter Location Date Provider Diagnosis [address] [place] [address] Oct, Reg mir Khan Lumbar radiculopathy M54.16 ; Stage 3 chronic kidney disease N18.3 ; [place]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 ; Essential hypertension I10 ; Positive BRANDIN (antinuclear antibody) R76.8 ; Secondary hyperparathyroidism N25.81 ; Acquired hypothyroidism E03.9 and Screening for diabetes mellitus Z13.1 IMMUNIZATIONS Vaccine Route Administration Date Status Influenza (18 yrs & older) Flublok IM Intramuscular Sep 09, 2019 Administered SOCIAL HISTORY Tobacco Use: Social History Observation Description Date Details (start date - stop date) Never Smoker Sex Assigned At : Social History Observation Description Sex Assigned At Unknown Audit Question Answer Notes Total Score: 0 Interpretation: Alcohol Education Language: Question Answer Notes Languages spoken: Serbian Domestic Violence: Question Answer Notes Status: Sexual [...] for 30 day(s) 1 Jan, Active Drisdol 14306 UNIT 1 capsule Orally weekly Active Calcitriol 0.25 MCG 1 capsule Orally Once a day for 30 Days Active MethylPREDNISolone 4 MG TAKE DIRECTED ON PACKAGE Oral for 6 Active Amlodipine Besylate 5 MG 1 tablet Orally Once a day for 30 Active Wheelchair - Bariatric Dx: 25.571 Daily for _ March, Active PROCEDURES No Information RESULTS No Results REASON FOR VISIT refill MEDICAL (GENERAL) HISTORY Type Description Date Medical [...] STATUS No Information ASSESSMENTS Encounter Date Diagnosis Assessment Notes Treatment Notes Treatm ent Clinical Notes Oct, Lumbar radiculopathy (ICD-10 - M54.16) Oct, Stage 3 chronic kidney disease (ICD-10 - N18.3) Oct, [place] light chain disease (ICD-10 - D89.89) Oct, Essential hypertension (ICD-10 - I10) Oct, Positive BRANDIN (antinuclear antibody) (ICD-10 - R7 6.8) Oct, Secondary hyperparathyroidism (ICD-10 - N25.81) Oct, Acquired hypothyroidism (ICD-10 - E03.9) Oct, Screening for diabetes mellitus (ICD-10 - Z13.1) PLAN OF TREATMENT Medication Medication Name Sig [...] Once a day for 30 day(s) Jan Future Test Test Name Order Date CBC with Differential [id number] Comprehensive Metabolic Profile (CMP) 93134361 FREE T4 & TSH PANEL 13003086 HEMOGLOBIN A1c 45407184 MICROALBUMIN RANDOM 25077976 BRANDIN TITER & PATTERN [id number] Insurance Providers Payer Name Payer Address Payer Phone Insured Name Patient Relati onship to Insured Coverage Start Date Coverage End Date MEDICARE Part A and B [address] [facility] [address] URSZULA REYNOSO
[2020-11-21] MEDS ORDERED: VITA-199 PO ×2 (17:20→20:55)
[2020-11-21] MEDS ORDERED: MAGN400C2 PO (17:20)
[2020-11-21] MEDS ORDERED: AMLO1TAB24 (17:20)
[2020-11-21] MEDS ORDERED: ACET-897 PO (17:20)
[2020-11-21] MEDS ORDERED: CALC1CAP31 (17:20)
--- OUTSIDE RECORDS SUMMARY | 2020-11-21 18:07 | CCD ---
Author Author [facility] Organization [facility] Address Unknown Phone Unavailable Care Team Providers Care Comb Setter Name Role Phone Jumalon, M Angle [employer] Unavailable Unavailable Jumalon, M Angle [employer] Unavailable Unavailable Jumalon, M Angle [employer] Unavailable Unavailable Jumalon, M Angle [employer] Unavailable Unavailable Jumalon, M Angle [employer] Unavailable Unavailable Jumalon, M Angle [employer] Unavailable Unavailable Jumalon, M Angle [employer] Unavailable Unavailable Jumalon, M Angle [employer] Unavailable Unavailable Jumalon, M Angle [employer] Unavailable Unavailable Jumalon, M Angle [employer] Unavailable Unavailable Jumalon, M Angle [employer] Unavailable Unavailable Jumalon, M Angle [employer] Unavailable Unavailable Jumalon, M Angle [employer] Unavailable Unavailable Jumalon, M Angle [employer] Unavailable Unavailable Jumalon, M Angle [employer] Unavailable Unavailable Jumalon, M Angle [employer] Unavailable Unavailable Jumalon, M Angle [employer] Unavailable Unavailable Jumalon, M Angle [employer] Unavailable Unavailable Jumalon, M Angle [employer] Unavailable Unavailable Jumalon, M Angle [employer] Unavailable Unavailable Jumalon, M Angle [employer] Unavailable Unavailable Jumalon, M Angle [employer] Unavailable Unavailable Jumalon, M Angle [employer] Unavailable Unavailable Jumalon, M Angle [employer] Unavailable Unavailable Jumalon, M Angle [employer] Unavailable Unavailable Jumalon, M Angle [employer] Unavailable Unavailable Jumalon, M Angle [employer] Unavailable Unavailable Jumalon, M Angle [employer] Unavailable Unavailable Rohith Moore MD Unavailable Unavailable [...] Unavailable Unavailable Rohith Moore MD Unavailable Unavailable Rohith Moore MD Unavailable Unavailable Rohith Moore MD Unavailable Unavailable Rohith Moore MD Unavailable Unavailable Rohith Moore MD Unavailable Unavailable Rohith Moore MD Unavailable Unavailable Rohith Moore MD Unavailable Unavailable Rohith Moore MD Unavailable Unavailable Rohith Moore MD Unavailable Unavailable Rohith Moore MD Unavailable Unavailable BolRohith salgado MD Unavailable Unavailable Rohith Moore MD Unavailable Unavailable BolRohith salgado MD Unavailable Unavailable Rohith Moore MD Unavailable Unavailable Rohith Moore MD Unavailable Unavailable Rohith Moore MD Unavailable Unavailable Rohith Moore MD Unavailable Unavailable BolRohith salgado MD Unavailable Unavailable BolRohith salgado MD Unavailable Unavailable BolRohith salgado MD Unavailable Unavailable BolRohith salgado MD Unavailable Unavailable BolRohith salgado MD Unavailable Unavailable BolRohith salgado MD Unavailable Unavailable Bolla, S Jg MEMBRENO Unavailable Unavailable Bolla, S Jg MD Unavailable [...] is protected by Article 27-F of the [facility] Public Health law. If you continue you may have access to information: Regarding HIV / AIDS; Provided by facilities licensed or operated by the [facility] Office of Mental Health; or Provided by the [facility] Office for People With Developmental Disabilities. If such information is present, then the following [facility] mandated warning applies: This information has [...] law may result in a fine or residential sentence or both. A general authorization for the release of medical or other information is NOT sufficient authorization for further disc losure. Family History Family Member Name Family Member Gender Family Member Status Date o f Status Description Data Source(s) Unknown Unknown Problem [facility] ([facility] Encounters Encounter Providers Location Date Indications Data Source(s ) Unknown [address] [facility] [address] 11/15/2020 12:00:00 AM EST eCW1 ([facility]) [place] [address] [facility] [address] 11/07/2020 12:00:00 AM EST eCW1 ([facility]) [place] [address] [facility] [address] 10/30/2020 12:00:00 AM EST eCW1 ([facility]) [place] [address] [facility] [address] 10/30/2020 12:00:00 AM EST eCW1 ([facility]) [place] [address] [facility] [address] 10/09/2020 12:00:00 AM EST eCW1 ([facility]) Angle Quesada, MARINE OIL TERMINAL SUPERINTENDENT: [address] [facility] [address], [facility] [place] [address], Ph. Attender: Angle Quesada [facility] - [facility] 06/11/2020 12:00:00 AM EDT ATHE NA ([facility]) Jg Moore MD: [address] [facility] [address], [facility] [place] [address], Ph. [phone] Attender: Jg Moore MD NE - [facility] 04/09/2020 12:00:00 AM EDT MEENA ([facility]) Jg Moore MD: [address] [facility] [address], [facility] [place] [address], Ph. [phone] Attender: Jg Moore MD NE - [facility] 04/09/2020 12:00:00 AM EDT MEENA ([facility]) [place] [address] [facility] [address] 01/24/2020 12:00:00 AM EDT eCW1 ([facility]) Jg Moore MD: [address], [place] [address], Ph. Attender: Jg Moore MD NE - [facility] 12/28/2019 12:00:00 AM EST MEENA ([facility]) Jg Moore MD: [address], [facility] [place] [address], Ph. Attender: Jg Moore MD NE - [facility] 12/28/2019 12:00:00 AM EST MEENA ([facility]) Jg Moore MD: [address] [facility] [address], [place] [address], Ph. Attender: Jg Moore MD NE - [facility] 12/28/2019 12:00:00 AM EST MEENA ([facility]) [address] [address] 12/09/2019 12:00:00 AM EST eCW1 ([facility]) [address] [address] 12/09/2019 12:00:00 AM EST eCW1 ([facility]) [address] [address] 12/06/2019 12:00:00 AM EST eCW1 ([facility]) Angle Quesada, MARINE OIL TERMINAL SUPERINTENDENT: [address], [place] [address], Ph. Attender: Angle Quesada [facility] - [facility] 11/24/2019 12:00:00 AM EST ATHE NA ([facility]) Angle Quesada, MARINE OIL TERMINAL SUPERINTENDENT: [address], [place] [address], Ph. Attender: Angle Quesada [facility] 11/24/2019 12:00:00 AM EST ATHE NA ([facility]) Angle Quesada, MARINE OIL TERMINAL SUPERINTENDENT: [address], [place] [address], Ph. [facility] 11/24/2019 12:00:00 AM EST ATHE NA ([facility]) Angle Quesada, MARINE OIL TERMINAL SUPERINTENDENT: [address], [place] [address], Ph. Attender: Angle Quesada [facility] 11/24/2019 12:00:00 AM EST ATHE NA ([facility]) [facility] [address] [facility] [address] 11/15/2019 12:00:00 AM EST eCW1 ([facility]) [facility] [address] [facility] [address] 11/07/2019 12:00:00 AM EST eCW1 ([facility]) Medications Medication Brand Name Start Date Product [...] EVERY DAY SOLD: 02/06/2020 [facility] Calcitriol 0.41075 MG Oral Capsule 0.25 mcg CALCITRIOL 01/24/2020 [...] EVERY DAY SOLD: 01/26/2020 [facility] Calcitriol 0.55906 MG Oral Capsule 0.25 mcg CALCITRIOL 01/24/2020 [...] EVERY DAY SOLD: 08/21/2020 [facility] Calcitriol 0.09011 MG Oral Capsule 0.25 mcg CALCITRIOL 01/24/2020 12:00:00 AM EDT capsule 30 TAKE ONE CAPSULE BY MOUTH EV SLAVA DAY TAKE ONE CAPSULE BY MOUTH EVERY DAY SOLD: 04/12/2020 [facility] Calcitriol 0.08914 MG Oral Capsule 0.25 mcg CALCITRIOL 01/24/2020 12:00:00 AM EDT capsule 30 TAKE ONE CAPSULE BY MOUTH EV SLAVA DAY TAKE ONE CAPSULE BY MOUTH EVERY DAY SOLD: 05/31/2020 [facility] 5 mg 01/24/2020 12:00:00 AM EDT tablet 30 TAKE ONE TABLET BY MOUTH EVERY DAY TAKE ONE TABLET BY MOUTH EVERY DAY SOLD: 04/12/2020 [facility] Calcitriol 0.86896 MG Oral Capsule 0.25 mcg CALCITRIOL 01/24/2020 [...] 1 TABLET BY MOUTH IN THE MORNING [facility] FOOD ONCE A DAY SOLD: 10/23/2019 [facility] 25 mg 09/09/2019 12:00:00 AM EST tablet 30 TAKE 1 TABLET BY MOUTH IN THE MORNING WITH FOOD ONCE A DAY TAKE 1 TABLET BY MOUTH IN THE MORNING [facility] FOOD ONCE A DAY SOLD: 11/24/2019 [facility] 25 mg 09/09/2019 12:00:00 AM EST tablet 30 TAKE 1 TABLET BY MOUTH IN THE MORNING WITH FOOD ONCE A DAY TAKE 1 TABLET BY MOUTH IN THE MORNING [facility] FOOD ONCE A DAY SOLD: 12/28/2019 [facility] 25 mg 09/09/2019 12:00:00 AM EST tablet 30 TAKE 1 TABLET BY MOUTH IN THE MORNING WITH FOOD ONCE A DAY TAKE 1 TABLET BY MOUTH IN THE MORNING [facility] FOOD ONCE A DAY SOLD: 09/21/2019 [facility] 25 mg 09/09/2019 12:00:00 AM EST tablet 30 TAKE 1 TABLET BY MOUTH IN THE MORNING WITH FOOD ONCE A DAY TAKE 1 TABLET BY MOUTH IN THE MORNING [facility] FOOD ONCE A DAY SOLD: 03/19/2020 [facility] 5 mg 08/31/2019 12:00:00 AM EDT tablet 30 TAKE ONE TABLET BY MOUTH EVERY DAY TAKE ONE TABLET BY MOUTH EVERY DAY SOLD: 10/06/2019 [facility] Calcitriol 0.22910 MG Oral Capsule 0.25 mcg CALCITRIOL 07/26/2019 12:00:00 AM EDT capsule 30 TAKE ONE CAPSULE BY MOUTH EV SLAVA DAY TAKE ONE CAPSULE BY MOUTH EVERY DAY SOLD: 11/12/2019 [facility] Calcitriol 0.32084 MG Oral Capsule 0.25 mcg CALCITRIOL 07/26/2019 12:00:00 AM EDT capsule 30 TAKE ONE CAPSULE BY MOUTH EV SLAVA DAY TAKE ONE CAPSULE BY MOUTH EVERY DAY SOLD: 12/24/2019 [facility] Calcitriol 0.40550 MG Oral Capsule 0.25 mcg CALCITRIOL 07/26/2019 [...] 4 mg tablets in a dose pack 345455 completed methylprednisolone 4 mg tablets in a dose pack MEENA ([facility]) methylprednisolone 4 mg tablets in a dose pack 197608 completed methylprednisolone 4 mg tablets in a dose pack MEENA ([facility]) methylprednisolone 4 mg tablets in a dose pack 225117 completed methylprednisolone 4 mg tablets in a dose pack MEENA ([facility]) methylprednisolone 4 mg tablets in a dose pack 222171 completed methylprednisolone 4 mg tablets in a dose pack MEENA ([facility]) Insurance Providers Payer name Policy type / Coverage type Policy ID Covered democrat ID Covered democrat's relationship to lewis Policy Lewis Plan Information MEDICARE [id number] SP [id number] ANS-Medicare Part B [id number] ANS-Medicare Part B [id number] ANS-Medicare Part B [id number] MEDICARE [id number] SP [id number] ANS-Medicare Part B [id number] Medicare Natl Gov't Servi Medicare Primary [id number] Self [id number] Medicare Natl Gov't Servi Medicare Primary [id number] Self [id number] ANSI-Medicare Part B [id number] ANSI-Medicare Part B [id number] ANSI-Medicare Part B [id number] ANSI-Medicare Part B [id number] ANSI-Medicare Part B [id number] [facility] Community Plan Commercial [id number] Self [id number] [place] Primary [id number] Self [id number] [facility] Plan Commercial [id number] Self [id number] [place] Medicare Primary [id number] Self [id number] MEDICARE [id number] SP [id number] A FORMERLY [facility]AN [facility] [id number] SP [id number] [facility] [id number] SP [id number] [facility] Community Plan Commercial [id number] Self [id number] [facility] Community Plan Commercial [id number] Self [id number] [employer] O [id number] S [id number] [employer] O [id number] S [id number] [place] [employer] [id number] SP [id number] P UNAVAILABLE UNAVAILA BLE OTHER WORKERS COMPENSATION [id number] SP [id number] Problems, Conditions, and Diagnoses Code Display Name Description Problem Type Effective Dates Data Source(s) N18.3 Chronic kidney disease stage 3 Stage 3 chronic kidney disease Problem 12/09/2019 12:00:00 AM EST eCW1 ([facility]) R76.8 [id number] Positive BRANDIN (antinuclear antibody) Probl em 12/09/2019 12:00:00 AM EST eCW1 ([facility]) N18.3 Chronic kidney disease stage 3 Stage 3 chronic kidney disease Problem 12/09/2019 12:00:00 AM EST eCW1 ([facility]) R76.8 [id number] Positive BRANDIN (antinuclear antibody) Probl em 12/09/2019 12:00:00 AM EST eCW1 ([facility]) Surgeries/Procedures Procedure Description Date Indications Data Source(s) TELEPHONE (INTERMEDIATE) 12/09/2019 12:00:00 AM EST eCW1 ([facility]) Results ID Date Data Source [id number] 04/09/2020 12:00:00 AM EDT MENEA ([facility]) Name Value Range Interpretation Code Description Data Faiza rce(s) Supporting Document(s) ID Date Data Source [id number] 04/09/2020 12:00:00 AM EDT [facility] Name Value Range Interpretation Code Description Data Faiza rce(s) Supporting Document(s) SARS-CoV-2 [facility] This lab was ordered by [facility]-COVID19 and reported by [facility]. Procedure Vital Signs ID Date Data Source UNK Name Value Range Interpretation Code Description Data Source(s) Systolic blood pressure 152 mm[Hg] 152 mm[Hg] A THENA ([facility]) Body height 66 [in_i] 66 [in_i] MEENA ([facility]) Diastolic blood pressure 95 mm[Hg] 95 mm[Hg] MEENA ([facility]) Systolic blood pressure 152 mm[Hg] 152 mm[Hg] A THENA ([facility]) Body height 66 [in_i] 66 [in_i] MEENA ([facility]) Diastolic blood pressure 95 mm[Hg] 95 mm[Hg] MEENA ([facility]) Systolic blood pressure 152 mm[Hg] 152 mm[Hg] A THENA ([facility]) Body height 66 [in_i] 66 [in_i] MEENA ([facility]) Diastolic blood pressure 95 mm[Hg] 95 mm[Hg] MEENA ([facility]) Systolic blood pressure 152 mm[Hg] 152 mm[Hg] A THENA ([facility]) Body height 66 [in_i] 66 [in_i] MEENA ([facility]) Diastolic blood pressure 95 mm[Hg] 95 mm[Hg] MEENA ([facility]) Patient Treatment Plan of Care Planned Activity Planned Date Details Description Data Source (s) methylprednisolone 4 mg tablets in a dose pack MEENA ([facility]) methylprednisolone 4 mg tablets in a dose pack MEENA ([facility]) methylprednisolone 4 mg tablets in a dose pack MEENA ([facility]) methylprednisolone 4 mg tablets in a dose pack MEENA ([facility])
[2020-11-21] MEDS ORDERED: FUROSEMIDE 40MG/4ML VIAL (J1940) IV ONE (18:30)
[2020-11-21] MEDS ORDERED: ceFAZolin SOD 1 GM in D5W MINI-BAG PLUS 50 ML IV ONE (18:30)
[2020-11-21] MEDS ORDERED: MORPHINE 4 MG/ML 1ML VIAL/SYRINGE (J2270) IV ONE (18:30)
[2020-11-21 19:05] LABS: BASO # 0.1 10^3/uL (0.0-0.2); BASO % 0.6 % (0.0-1.0); EOS # 0.3 10^3/uL (0.0-0.5); EOS % 2.8 % (0.0-3.0); HEMATOCRIT 35.1 % (36.0-47.0); HEMOGLOBIN 11.1 g/dl (12.0-15.5); LYMPH # 1.2 10^3/uL (1.5-5.0); LYMPH % 12.6 % (24.0-44.0); MEAN CORPUSCULAR HEMOGLOBIN 31.9 pg (27.0-33.0); MEAN CORPUSCULAR HGB CONC 31.6 g/dl (32.0-36.5); MEAN CORPUSCULAR VOLUME 100.9 fl (80.0-96.0); MONO # 0.6 10^3/uL (0.0-0.8); MONO % 6.4 % (0.0-5.0); NEUTROPHILS # 7.3 10^3/uL (1.5-8.5); PLATELET COUNT, AUTOMATED 280 10^3/uL (150-450); RED BLOOD COUNT 3.48 10^6/uL (4.00-5.40); WHITE BLOOD COUNT 9.4 10^3/uL (4.0-10.0)
[2020-11-21 19:30] LABS: ERYTHROCYTE SEDIMENTATION RATE 55 mm/hr (0-30)
[2020-11-21 19:38] LABS: C REACTIVE PROTEIN QUANTITATIV 2.57 MG/DL (0.00-0.30); CALCIUM LEVEL 9.9 MG/DL (8.8-10.2); CREATININE FOR GFR 1.6 MG/DL (0.55-1.30); POTASSIUM SERUM 5.3 MEQ/L (3.5-5.1)
--- NOTE | 2020-11-21 20:05 | REPVR ---
PROCEDURE INFORMATION: Exam: US Duplex Lower Extremity Veins, Bilateral Exam date and time: 11/21/2020 7:55 PM Age: 60 years old Clinical indication: Swelling (edema) of limb; Lower extremity, bilateral; Additional info: Bilat lower leg swelling, l>r TECHNIQUE: Imaging protocol: Real-time duplex ultrasound of the extremities with 2-D long scale, color Doppler flow and spectral waveform analysis with image documentation. Complete exam focused on the bilateral lower extremity veins. COMPARISON: No relevant prior studies available. FINDINGS: Right deep veins: Unremarkable. The common femoral, femoral and popliteal veins are patent without thrombus. Normal Doppler waveforms. Normal compressibility and/or augmentation response. Right superficial veins: Saphenofemoral junction is patent without thrombus. Left deep veins: Unremarkable. The common femoral, femoral and popliteal veins are patent without thrombus. Normal Doppler waveforms. Normal compressibility and/or augmentation response. Left superficial veins: Saphenofemoral junction is patent without thrombus. Soft tissues: Unremarkable. IMPRESSION: No sonographic evidence of deep vein thrombosis. Electronically signed by: Ze Sykes On 11/21/2020 20:05:38 PM
[2020-11-21] MEDS ORDERED: CALC1CAP31 PO (20:55)
[2020-11-21] MEDS ORDERED: MAGN1TAB26 PO (20:55)
[2020-11-21] MEDS ORDERED: AMLO1TAB24 PO (20:55)
[2020-11-21 21:36] LABS: RSV AMPLIFICATION NEGATIVE (NEGATIVE)
[2020-11-21] MEDS ORDERED: MOM 30ML SUSPENSION UDC PO PRN (22:00)
[2020-11-21] MEDS ORDERED: MAALOX 30 ML SUSP *UDC PO PRN (22:00)
[2020-11-21] MEDS ORDERED: ACETAMINOPHEN TAB 650MG DOSE (2X325MG) PO PRN (22:00)
--- OUTSIDE RECORDS SUMMARY | 2020-11-21 22:36 | CCD ---
Author Author [facility] Organization [facility] Address Unknown Phone Unavailable Care Team Providers Care Labour Market Economist Name Role Phone Jumalon, M Angle RUBBING BED OPERATOR Unavailable Unavailable Jumalon, M Angle RUBBING BED OPERATOR Unavailable Unavailable Jumalon, M Angle RUBBING BED OPERATOR Unavailable Unavailable Jumalon, M Angle RUBBING BED OPERATOR Unavailable Unavailable Jumalon, M Angle RUBBING BED OPERATOR Unavailable Unavailable Jumalon, M Angle RUBBING BED OPERATOR Unavailable Unavailable Jumalon, M Angle RUBBING BED OPERATOR Unavailable Unavailable Jumalon, M Angle RUBBING BED OPERATOR Unavailable Unavailable Jumalon, M Angle RUBBING BED OPERATOR Unavailable Unavailable Jumalon, M Angle RUBBING BED OPERATOR Unavailable Unavailable Jumalon, M Angle RUBBING BED OPERATOR Unavailable Unavailable Jumalon, M Angle RUBBING BED OPERATOR Unavailable Unavailable Jumalon, M Angle RUBBING BED OPERATOR Unavailable Unavailable Jumalon, M Angle RUBBING BED OPERATOR Unavailable Unavailable Jumalon, M Angle RUBBING BED OPERATOR Unavailable Unavailable Jumalon, M Angle RUBBING BED OPERATOR Unavailable Unavailable Jumalon, M Angle RUBBING BED OPERATOR Unavailable Unavailable Jumalon, M Angle RUBBING BED OPERATOR Unavailable Unavailable Jumalon, M Angle RUBBING BED OPERATOR Unavailable Unavailable Jumalon, M Angle RUBBING BED OPERATOR Unavailable Unavailable Jumalon, M Angle RUBBING BED OPERATOR Unavailable Unavailable Jumalon, M Angle RUBBING BED OPERATOR Unavailable Unavailable Jumalon, M Angle RUBBING BED OPERATOR Unavailable Unavailable Jumalon, M Angle RUBBING BED OPERATOR Unavailable Unavailable Jumalon, M Angle RUBBING BED OPERATOR Unavailable Unavailable Jumalon, M Angle RUBBING BED OPERATOR Unavailable Unavailable Jumalon, M Angle RUBBING BED OPERATOR Unavailable Unavailable Jumalon, M Angle RUBBING BED OPERATOR Unavailable Unavailable Rohith Moore MD Unavailable [...] is protected by Article 27-F of the [facility] Public Health law. If you continue you may have access to information: Regarding HIV / AIDS; Provided by facilities licensed or operated by the [facility] Office of Mental Health; or Provided by the [facility] Office for People With Developmental Disabilities. If such information is present, then the following [facility] mandated warning applies: This information has been [...] law may result in a fine or senior care sentence or both. A general authorization for the release of medical or other information is NOT sufficient authorization for further disc losure. Family History Family Member Name Family Member Gender Family Member Status Date o f Status Description Data Source(s) Unknown Unknown Problem [facility] ([facility] Encounters Encounter Providers Location Date Indications Data Source(s ) Unknown [address] [facility] [address] 11/15/2020 12:00:00 AM EST eCW1 ([facility]) [place] [address] [facility] [address] 11/07/2020 12:00:00 AM EST eCW1 ([facility]) [place] [address] [facility] [address] 10/30/2020 12:00:00 AM EST eCW1 ([facility]) Unknown [address] [facility] [address] 10/30/2020 12:00:00 AM EST eCW1 ([facility]) [place] [address] [facility] [address] 10/09/2020 12:00:00 AM EST eCW1 ([facility]) Angle Quesada, PHARMACY MANAGER: [address] [facility] [address], [facility] [place] [address], Ph. Attender: Angle Quesada [facility] - [facility] 06/11/2020 12:00:00 AM EDT ATHE NA ([facility]) Jg Mooer MD: [address] [facility] [address], [facility] [place] [address], Ph. [phone] Attender: Jg Moore MD [place] - [facility] 04/09/2020 12:00:00 AM EDT MEENA ([facility]) Jg Moore MD: [address] [facility] [address], [facility] [place] [address], Ph. [phone] Attender: Jg Moore MD [place] - [facility] 04/09/2020 12:00:00 AM EDT MEENA ([facility]) [place] [address] [facility] [address] 01/24/2020 12:00:00 AM EDT eCW1 ([facility]) Jg Moore MD: [address], [place] [address], Ph. Attender: Jg Moore MD [place] - [facility] 12/28/2019 12:00:00 AM EST MEENA ([facility]) Jg Moore MD: [address], [facility] [place] [address], Ph. Attender: Jg Moore MD [place] - [facility] 12/28/2019 12:00:00 AM EST MEENA ([facility]) Jg Moore MD: [address] [facility] [address], [place] [address], Ph. Attender: Jg Moore MD [place] - [facility] 12/28/2019 12:00:00 AM EST MEENA ([facility]) [address] [address] 12/09/2019 12:00:00 AM EST eCW1 ([facility]) [address] [address] 12/09/2019 12:00:00 AM EST eCW1 ([facility]) [address] [address] 12/06/2019 12:00:00 AM EST eCW1 ([facility]) Angle Quesada, PHARMACY MANAGER: [address], [place] [address], Ph. Attender: Angle Quesada [facility] - [facility] 11/24/2019 12:00:00 AM EST ATHE NA ([facility]) Angle Quesada, PHARMACY MANAGER: [address], [place] [address], Ph. Attender: Angle Quesada [facility] 11/24/2019 12:00:00 AM EST ATHE NA ([facility]) Angle Quesada, PHARMACY MANAGER: [address], [place] [address], Ph. [facility] 11/24/2019 12:00:00 AM EST ATHE NA ([facility]) Angle Quesada, PHARMACY MANAGER: [address], [place] [address], Ph. Attender: Angle Quesada [facility] 11/24/2019 12:00:00 AM EST ATHE NA ([facility]) [facility] [address] [facility] [address] 11/15/2019 12:00:00 AM EST eCW1 ([facility]) [facility] [address] [facility] [address] 11/07/2019 12:00:00 AM EST eCW1 ([facility]) Medications Medication Brand Name Start Date Product [...] EVERY DAY SOLD: 02/06/2020 [facility] Calcitriol 0.62530 MG Oral Capsule 0.25 mcg CALCITRIOL 01/24/2020 [...] EVERY DAY SOLD: 01/26/2020 [facility] Calcitriol 0.44271 MG Oral Capsule 0.25 mcg CALCITRIOL 01/24/2020 [...] EVERY DAY SOLD: 08/21/2020 [facility] Calcitriol 0.73352 MG Oral Capsule 0.25 mcg CALCITRIOL 01/24/2020 12:00:00 AM EDT capsule 30 TAKE ONE CAPSULE BY MOUTH EV SLAVA DAY TAKE ONE CAPSULE BY MOUTH EVERY DAY SOLD: 04/12/2020 [facility] Calcitriol 0.17697 MG Oral Capsule 0.25 mcg CALCITRIOL 01/24/2020 12:00:00 AM EDT capsule 30 TAKE ONE CAPSULE BY MOUTH EV SLAVA DAY TAKE ONE CAPSULE BY MOUTH EVERY DAY SOLD: 05/31/2020 [facility] 5 mg 01/24/2020 12:00:00 AM EDT tablet 30 TAKE ONE TABLET BY MOUTH EVERY DAY TAKE ONE TABLET BY MOUTH EVERY DAY SOLD: 04/12/2020 [facility] Calcitriol 0.53538 MG Oral Capsule 0.25 mcg CALCITRIOL 01/24/2020 [...] 1 TABLET BY MOUTH IN THE MORNING [facility] FOOD ONCE A DAY SOLD: 10/23/2019 [facility] 25 mg 09/09/2019 12:00:00 AM EST tablet 30 TAKE 1 TABLET BY MOUTH IN THE MORNING WITH FOOD ONCE A DAY TAKE 1 TABLET BY MOUTH IN THE MORNING [facility] FOOD ONCE A DAY SOLD: 11/24/2019 [facility] 25 mg 09/09/2019 12:00:00 AM EST tablet 30 TAKE 1 TABLET BY MOUTH IN THE MORNING WITH FOOD ONCE A DAY TAKE 1 TABLET BY MOUTH IN THE MORNING [facility] FOOD ONCE A DAY SOLD: 12/28/2019 [facility] 25 mg 09/09/2019 12:00:00 AM EST tablet 30 TAKE 1 TABLET BY MOUTH IN THE MORNING WITH FOOD ONCE A DAY TAKE 1 TABLET BY MOUTH IN THE MORNING [facility] FOOD ONCE A DAY SOLD: 09/21/2019 [facility] 25 mg 09/09/2019 12:00:00 AM EST tablet 30 TAKE 1 TABLET BY MOUTH IN THE MORNING WITH FOOD ONCE A DAY TAKE 1 TABLET BY MOUTH IN THE MORNING [facility] FOOD ONCE A DAY SOLD: 03/19/2020 [facility] 5 mg 08/31/2019 12:00:00 AM EDT tablet 30 TAKE ONE TABLET BY MOUTH EVERY DAY TAKE ONE TABLET BY MOUTH EVERY DAY SOLD: 10/06/2019 [facility] Calcitriol 0.30676 MG Oral Capsule 0.25 mcg CALCITRIOL 07/26/2019 12:00:00 AM EDT capsule 30 TAKE ONE CAPSULE BY MOUTH EV SLAVA DAY TAKE ONE CAPSULE BY MOUTH EVERY DAY SOLD: 11/12/2019 [facility] Calcitriol 0.21737 MG Oral Capsule 0.25 mcg CALCITRIOL 07/26/2019 12:00:00 AM EDT capsule 30 TAKE ONE CAPSULE BY MOUTH EV SLAVA DAY TAKE ONE CAPSULE BY MOUTH EVERY DAY SOLD: 12/24/2019 [facility] Calcitriol 0.55943 MG Oral Capsule 0.25 mcg CALCITRIOL 07/26/2019 [...] 4 mg tablets in a dose pack [id number] completed methylprednisolone 4 mg tablets in a dose pack MEENA ([facility]) methylprednisolone 4 mg tablets in a dose pack [id number] completed methylprednisolone 4 mg tablets in a dose pack MEENA ([facility]) methylprednisolone 4 mg tablets in a dose pack [id number] completed methylprednisolone 4 mg tablets in a dose pack MEENA ([facility]) methylprednisolone 4 mg tablets in a dose pack 144802 completed methylprednisolone 4 mg tablets in a dose pack MEENA ([facility]) Insurance Providers Payer name Policy type / Coverage type Policy ID Covered republican ID Covered republican's relationship to lewis Policy Lewis Plan Information MEDICARE [id number] SP [id number] ANS-Medicare Part B [id number] ANS-Medicare Part B [id number] ANS-Medicare Part B [id number] MEDICARE [id number] SP [id number] ANS-Medicare Part B [id number] Medicare Natl Gov't Servi Medicare Primary [id number] Self [id number] Medicare Natl Gov't Servi Medicare Primary [id number] Self [id number] ANSI-Medicare Part B [id number] ANSI-Medicare Part B [id number] ANSI-Medicare Part B [id number] ANSI-Medicare Part B [id number] ANSI-Medicare Part B [id number] [facility] Community Plan Commercial [id number] Self [id number] [place] Primary [id number] Self [id number] [facility] Community Plan Commercial [id number] Self [id number] [place] Primary [id number] Self [id number] MEDICARE [id number] SP [id number] [facility] [id number] SP [id number] [facility] [id number] SP [id number] [facility] Community Plan Commercial [id number] Self [id number] [facility] Community Plan Commercial [id number] Self [id number] [employer] O [id number] S [id number] [employer] O [id number] S [id number] [employer] ONE [id number] SP [id number] P UNAVAILABLE UNAVAILA BLE OTHER WORKERS COMPENSATION [id number] SP [id number] Problems, Conditions, and Diagnoses Code Display Name Description Problem Type Effective Dates Data Source(s) N18.3 Chronic kidney disease stage 3 Stage 3 chronic kidney disease Problem 12/09/2019 12:00:00 AM EST eCW1 ([facility]) R76.8 [id number] Positive BRANDIN (antinuclear antibody) Probl em 12/09/2019 12:00:00 AM EST eCW1 ([facility]) N18.3 Chronic kidney disease stage 3 Stage 3 chronic kidney disease Problem 12/09/2019 12:00:00 AM EST eCW1 ([facility]) R76.8 [id number] Positive BRANDIN (antinuclear antibody) Probl em 12/09/2019 12:00:00 AM EST eCW1 ([facility]) Surgeries/Procedures Procedure Description Date Indications Data Source(s) TELEPHONE (INTERMEDIATE) 12/09/2019 12:00:00 AM EST eCW1 ([facility]) Results ID Date Data Source [id number] 04/09/2020 12:00:00 AM EDT MEENA ([facility]) Name Value Range Interpretation Code Description Data Faiza rce(s) Supporting Document(s) ID Date Data Source [id number] 04/09/2020 12:00:00 AM EDT [facility] Name Value Range Interpretation Code Description Data Faiza rce(s) Supporting Document(s) SARS-CoV-2 [facility] This lab was ordered by [facility] and reported by [facility]. Procedure Vital Signs ID Date Data Source UNK Name Value Range Interpretation Code Description Data Source(s) Systolic blood pressure 152 mm[Hg] 152 mm[Hg] A THENA ([facility]) Body height 66 [in_i] 66 [in_i] MEENA ([facility]) Diastolic blood pressure 95 mm[Hg] 95 mm[Hg] MEENA ([facility]) Systolic blood pressure 152 mm[Hg] 152 mm[Hg] A THENA ([facility]) Body height 66 [in_i] 66 [in_i] MEENA ([facility]) Diastolic blood pressure 95 mm[Hg] 95 mm[Hg] MEENA ([facility]) Systolic blood pressure 152 mm[Hg] 152 mm[Hg] A THENA ([facility]) Body height 66 [in_i] 66 [in_i] MEENA ([facility]) Diastolic blood pressure 95 mm[Hg] 95 mm[Hg] MEENA ([facility]) Systolic blood pressure 152 mm[Hg] 152 mm[Hg] A THENA ([facility]) Body height 66 [in_i] 66 [in_i] MEENA ([facility]) Diastolic blood pressure 95 mm[Hg] 95 mm[Hg] MEENA ([facility]) Patient Treatment Plan of Care Planned Activity Planned Date Details Description Data Source (s) methylprednisolone 4 mg tablets in a dose pack MEENA ([facility]) methylprednisolone 4 mg tablets in a dose pack MEENA ([facility]) methylprednisolone 4 mg tablets in a dose pack MEENA ([facility]) methylprednisolone 4 mg tablets in a dose pack MEENA ([facility])
--- NOTE | 2020-11-21 23:27 | HPEPDOC ---
[facility] Medical History & Physical Date of Admission Nov 21, 2020 Date of Service: Nov 21, 2020 Primary Care Physician: OZIEL HOOVER PA-C Attending Physician: PATRIA RODRIGUEZ MD History and Physical TIME OF SERVICE: 10:10 PM CHIEF COMPLAINT: Left leg pain HISTORY OF PRESENT ILLNESS: This 60-year-old female has a history of left lower extremity cellulitis and abscess requiring incision and drainage. Today She presented with complaints of bilateral lower extremity extremity pain, redness and swelling for about 1 week. The left leg is more swollen and painful than the right leg. She describes the pain as 9 out of 10 in severity and aching in nature. She denied having associated nausea, vomiting, fever or chills. REVIEW OF SYSTEMS: 12 point review of systems negative except as listed in HPI PAST MEDICAL/ SURGICAL HISTORY: Hypertension Obesity CKD 3 Nephrolithiasis Debility, uses canes to walk Osteoarthritis SOCIAL HISTORY: She doesn't smoke or drink alcohol. 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 HOME MEDICATIONS: Please see below. PHYSICAL EXAMINATION: Vital Signs Date Time Temp Pulse Resp B/P (MAP) Pulse Ox O2 Delivery O2 Flow Rate FiO2 11/21/20 16:55 98.2 99 20 148/91 (110) 98 Room Air GEN: well-nourished / obese INTEGUMENT: . There is edema at both lower extremities/the left lower extremity has marked erythema and calor along with thickening of epidermis and dermis and subcutaneous tissue, especially at the posterior aspect of the lower leg HEENT: EOMI CVS: RRR/NMRG/ radial pulses intact LUNGS: able to speak full sentences without stopping to take a breath / no coughing / lungs are clear to auscultation bilaterally on room air ABDOMEN: Contour (obese) MSK/EXTREMITIES: NCAT / she has two canes at the bedside with her NEURO: CN 2-12 are grossly intact / speech is not dysarthric PSYCH: alert and oriented to person place and time/ able to understand and follow all commands LABORATORY DATA: See below. IMAGING: BLE US "IMPRESSION: No sonographic evidence of deep vein thrombosis." MICROBIOLOGY: Please see below. ASSESSMENT: Ms. Figueroa is a 60-year-old with a history of hypertension, CKD 3, Left lower extremity cellulitis and obesity who presented with complaints bilateral lower extremity pain, redness and swelling; she'll be admitted primarily for left lower extremity cellulitis. PLAN: 1. LLE Cellulitis She doesn't have SIRS criteria Risk factors for sialitis include morbid obesity, and toenail fungus Plan: admit to medical floor/ fall precautions / elevate leg /f/u CK rule out necrotizing fasciitis / since the infection is mild, will switch from IV cefazolin Bactrim which will cover MRSA and beta hemolytic strep / The daytime team may consider referring the patient to podiatry and an outpatient basis to treat her toenail fungus 2. Macrocytic anemia Plan: f/u w PCP for work -up 3. Hypertension Plan: Amlodipine 4. CKD 3 Plan: calcitriol 5. Obesity Complicates care Since the patients BMI > 40 she is a candidate for bariatric surgery Plan: f/u A1C / the patient can f/u w his or her PCP for sleep apnea screening, well puller consult, to discuss staring Saxenda, which is indicated in patients with a BMI >27 with co-existing DM, HTN or dyslipidemia to help with weight control as an adjunct to exercise & referral to a Bariatric Surgeon / recommend cardiovascular exercise for 40 min 4-5 days a week DVT PROPHYLAXIS: lovenox DISPOSITION: home after less than 2 midnight's stay Laboratory Data Labs 24H Laboratory Tests 2 11/21/20 18:43: Immature Granulocyte % (Auto) 0.6, Neutrophils (%) (Auto) 77.0H, Lymphocytes (%) (Auto) 12.6L, Monocytes (%) (Auto) 6.4H, Eosinophils (%) (Auto) 2.8, Basophils (%) (Auto) 0.6, Neutrophils # (Auto) 7.3, Lymphocytes # (Auto) 1.2L, Monocytes # (Auto) 0.6, Eosinophils # (Auto) 0.3, Basophils # (Auto) 0.1, Nucleated Red Blood Cells % (auto) 0.0, Erythrocyte Sedimentation Rate 55H, Anion Gap 3L, Glomerular Filtration Rate 35.0L, Calcium Level 9.9, C-Reactive Protein, Quantitative 2.57H, LQ-Ano-D-Type Natriuretic Peptide 98 11/21/20 20:55: Coronavirus (COVID-19)(PCR) NEGATIVE, Influenza Type A (RT-PCR) NEGATIVE, Influenza Type B (RT-PCR) NEGATIVE, Respiratory Syncytial Virus (PCR) NEGATIVE CBC/BMP Laboratory Tests 11/21/20 18:43 Microbiology Microbiology 11/21/20 Blood Culture, Received Pending Home Medications Scheduled Amlodipine Besylate (Amlodipine Besylate) 5 Mg Tablet, 5 MG PO DAILY Calcitriol (Calcitriol) 0.25 Mcg Capsule, 0.25 MCG PO DAILY Cephalexin (Cephalexin) 500 Mg Capsule, 500 MG PO BID Cholecalciferol (Vitamin D3) (Vitamin D3) 250 Mcg Tablet, 250 MCG PO DAILY Doxycycline Monohydrate (Doxycycline) 100 Mg Capsule, 1 CAP PO BID Magnesium Oxide (Magnesium Oxide) 400 Mg Tablet, 400 MG PO DAILY Scheduled PRN Acetaminophen (Tylenol Extra Strength) 500 Mg Tablet, 1,500 MG PO TID PRN for PAIN Allergies Coded Allergies: No Known Allergies (Unverified , 11/21/20) A-FIB/CHADSVASC A-FIB History Current/History of A-Fib/PAF?: No Current PO Anticoag Therapy: No PATRIA RODRIGUEZ MD Nov 21, 2020 23:27
[2020-11-22 02:00] VITALS: BP 162/73
[2020-11-22 06:00] VITALS: BP 166/98
[2020-11-22] MEDS ORDERED: ceFAZolin SOD 500 MG in D5W MINI-BAG PLUS 50 ML IV SCH (06:00)
[2020-11-22 07:28] LABS: HEMATOCRIT 34.7 % (36.0-47.0); MEAN CORPUSCULAR HEMOGLOBIN 32.1 pg (27.0-33.0); MEAN CORPUSCULAR HGB CONC 31.7 g/dl (32.0-36.5); MEAN CORPUSCULAR VOLUME 101.2 fl (80.0-96.0); PLATELET COUNT, AUTOMATED 279 10^3/uL (150-450); RED BLOOD COUNT 3.43 10^6/uL (4.00-5.40); WHITE BLOOD COUNT 7.2 10^3/uL (4.0-10.0)
[2020-11-22] MEDS ORDERED: BACTRIM 160MG/800MG DS TAB PO SCH (08:00)
[2020-11-22 08:06] LABS: CALCIUM LEVEL 10.1 MG/DL (8.8-10.2); CREATININE FOR GFR 1.55 MG/DL (0.55-1.30); GLOMERULAR FILTRATION RATE 36.3 (>45); POTASSIUM SERUM 4.1 MEQ/L (3.5-5.1)
[2020-11-22 08:28] VITALS: BP 166/98
[2020-11-22] MEDS ORDERED: ENOXAPARIN 40MG/0.4ML SYRINGE (J1650 PER 10MG) SC SCH (09:00)
[2020-11-22] MEDS ORDERED: amLODIPine 5 MG TAB PO SCH (09:00)
[2020-11-22] MEDS ORDERED: CALCITRIOL 0.25 MCG CAP (S0169) PO SCH (09:00)
[2020-11-22] MEDS ORDERED: CEPH500C PO (11:08)
[2020-11-22] MEDS ORDERED: DOXY-350 PO (11:08)
[2020-11-22 11:13] LABS: HEMOGLOBIN A1c 5.4 %
--- NOTE | 2020-11-22 16:38 | DS.PDOC ---
Discharge Summary General Date of Admission Nov 21, 2020 at 21:57 Date of Discharge 11/22/20 Discharge Summary PROCEDURES PERFORMED DURING STAY: [None]. ADMITTING DIAGNOSES: #cellulitis SECONDARY DIAGNOSES: #MAYELA - non-compliant with CPAP #HTN #Obesity #CKD 3 #Debility, uses canes to walk #Osteoarthritis #recurrent cellulitis/lower extremity chronic venous stasis #medical non-compliance COMPLICATIONS/CHIEF COMPLAINT: Cellulitis And Abcess Of L Leg. HISTORY OF PRESENT ILLNESS: 60-year-old female has a history of left lower extremity cellulitis and abscess requiring incision and drainage. CVA. She presented with complaints of bilateral lower extremity extremity pain, redness and swelling for about 1 week. The left leg is more swollen and painful than the right leg. She describes the pain as 9 out of 10 in severity and aching in nature. She denied having associated nausea, vomiting, fever or chills. HOSPITAL COURSE: Patient was adamant regarding discharge home. States she is able to follow up with PCP and podiatry as outpatient. Stated she has responded well to outpatient treatment of cellulitis in the past with oral antibiotics. Voiced no other medical complaints. Risks of premature discharge were explained, she voiced full understanding of risks, however still insisted on outpatient management. Discharged with outpatient follow up. DISCHARGE MEDICATIONS: Please see below. ALLERGIES: Please see below. PHYSICAL EXAMINATION ON DISCHARGE: VITAL SIGNS: Please see below. GENERAL: NAD HEENT: NC/AT, EOMI Lungs: CTA B/L Heart: +S1S2, RRR Abd: soft, obese, NT, +BS Ext: chronic venous stasis changes b/l lower extremities LABORATORY DATA: Please see below. ACTIVITY: [As tolerated]. DISPOSITION: 01 Home, Self-Care. DISCHARGE INSTRUCTIONS: 1. Follow up PCP in 3-5 days DISCHARGE CONDITION: [Stable]. TIME SPENT ON DISCHARGE: 35 minutes. Vital Signs/I&Os Vital Signs Date Time Temp Pulse Resp B/P (MAP) Pulse Ox O2 Delivery O2 Flow Rate FiO2 11/22/20 08:28 89 166/98 11/22/20 06:00 97.9 18 98 Room Air I&O- Last 24 Hours up to 6 AM 11/22/20 06:00 Intake Total 50 ml Output Total 800 ml Balance -750 ml Laboratory Data Labs 24H Laboratory Tests 2 11/21/20 18:43: Immature Granulocyte % (Auto) 0.6, Neutrophils (%) (Auto) 77.0H, Lymphocytes (%) (Auto) 12.6L, Monocytes (%) (Auto) 6.4H, Eosinophils (%) (Auto) 2.8, Basophils (%) (Auto) 0.6, Neutrophils # (Auto) 7.3, Lymphocytes # (Auto) 1.2L, Monocytes # (Auto) 0.6, Eosinophils # (Auto) 0.3, Basophils # (Auto) 0.1, Nucleated Red Blood Cells % (auto) 0.0, Erythrocyte Sedimentation Rate 55H, Anion Gap 3L, Glomerular Filtration Rate 35.0L, Calcium Level 9.9, C-Reactive Protein, Quantitative 2.57H, IG-Jsk-N-Type Natriuretic Peptide 98 11/21/20 20:55: Coronavirus (COVID-19)(PCR) NEGATIVE, Influenza Type A (RT-PCR) NEGATIVE, Influenza Type B (RT-PCR) NEGATIVE, Respiratory Syncytial Virus (PCR) NEGATIVE 11/22/20 06:49: Nucleated Red Blood Cells % (auto) 0.3H, Anion Gap 10, Glomerular Filtration Rate 36.3L, Calcium Level 10.1, Estimated Mean Plasma Glucose 108, Hemoglobin A1c 5.4, Total Creatine Kinase 99 CBC/BMP Laboratory Tests 11/21/20 18:43 11/22/20 06:49 Microbiology Microbiology 11/21/20 Blood Culture, Received Pending Discharge Medications Scheduled Amlodipine Besylate (Amlodipine Besylate) 5 Mg Tablet, 5 MG PO DAILY, (Reported) Calcitriol (Calcitriol) 0.25 Mcg Capsule, 0.25 MCG PO DAILY, (Reported) Cholecalciferol (Vitamin D3) (Vitamin D3) 250 Mcg Tablet, 250 MCG PO DAILY, (Reported) Duloxetine HCl (Cymbalta) 20 Mg Capsule.dr, 40 MG PO DAILY Furosemide (Lasix) 20 Mg Tablet, 20 MG PO DAILY Magnesium Oxide (Magnesium Oxide) 400 Mg Tablet, 400 MG PO DAILY, (Reported) cephALEXin (cephALEXin) 500 Mg Capsule, 500 MG PO QID Scheduled PRN Acetaminophen (Tylenol Extra Strength) 500 Mg Tablet, 2,000 MG PO BID PRN for PAIN, (Reported) Tramadol HCl (Tramadol HCl) 50 Mg Tablet, 50 MG PO Q8HP PRN for MODERATE/SEVERE PAIN (PS 5-10) Allergies Coded Allergies: No Known Allergies (Unverified , 11/21/20) AYO ASIF MD Nov 22, 2020 16:38
== END 2020-11-22 12:40 | disposition home or self-care (01) ==
LOC: M ED 16:54 → M ED INP 21:57 → INTOOBSV 21:57 → ENRESERV 11-22 00:11 → M MS5PR 11-22 02:05
PROVIDERS: ADMIT Internal Medicine; ATTEND Internal Medicine
DX: L03.116 Cellulitis of left lower limb (principal); L02.416 Cutaneous abscess of left lower limb; D64.9 Anemia, unspecified; G47.33 Obstructive sleep apnea (adult) (pediatric); E03.9 Hypothyroidism, unspecified; I12.9 Hypertensive chronic kidney disease with stage 1 through stage 4 chronic kidney disease, or unspecified chronic kidney disease; R22.42 Localized swelling, mass and lump, left lower limb; M79.662 Pain in left lower leg; E66.9 Obesity, unspecified; N18.30 Chronic kidney disease, stage 3 unspecified; M19.90 Unspecified osteoarthritis, unspecified site; Z91.19 Patient's noncompliance with other medical treatment and regimen; Z79.899 Other long term (current) drug therapy
CPT/HCPCS: 36415; 80048; 82550; 83036; 83880; 85025; 85027; 85652; 86140; 87040; 87631; 93970; 96365; 96366; 96375; 97161; 99284; G0378; J0690; J1940; J2270

== ENCOUNTER 2020-11-26 09:37 | Inpatient (IN) | payer MEDICARE ==
[~2020-11-26] VITALS: Ht 167.6 cm; Wt 212.7 kg
[2020-11-26] MEDS: ENOXAPARIN 40MG/0.4ML SYRINGE (J1650 PER 10MG) SC SCH (09:00)
[~2020-11-26 09:37] MED LIST: ACET-897 PO; AMLO1TAB24; AMLO1TAB24 PO; CALC1CAP31; CALC1CAP31 PO; CEPH500C PO; DOXY-350 PO; MAGN1TAB26 PO; MAGN400C2 PO; VITA-199 PO
[2020-11-26] MEDS ORDERED: MORPHINE 4 MG/ML 1ML VIAL/SYRINGE (J2270) IV ONE (10:30)
[2020-11-26 11:14] LABS: BASO # 0.1 10^3/uL (0.0-0.2); BASO % 0.9 % (0.0-1.0); EOS # 0.2 10^3/uL (0.0-0.5); EOS % 2.7 % (0.0-3.0); HEMATOCRIT 34.1 % (36.0-47.0); HEMOGLOBIN 10.8 g/dl (12.0-15.5); LYMPH % 11.4 % (24.0-44.0); MEAN CORPUSCULAR HEMOGLOBIN 32.5 pg (27.0-33.0); MEAN CORPUSCULAR HGB CONC 31.7 g/dl (32.0-36.5); MEAN CORPUSCULAR VOLUME 102.7 fl (80.0-96.0); MONO # 0.5 10^3/uL (0.0-0.8); MONO % 6.2 % (0.0-5.0); NEUTROPHILS # 6.7 10^3/uL (1.5-8.5); NEUTROPHILS % 78.3 % (36.0-66.0); PLATELET COUNT, AUTOMATED 292 10^3/uL (150-450); RED BLOOD COUNT 3.32 10^6/uL (4.00-5.40); WHITE BLOOD COUNT 8.6 10^3/uL (4.0-10.0)
[2020-11-26 11:34] LABS: ERYTHROCYTE SEDIMENTATION RATE 56 mm/hr (0-30)
[2020-11-26 11:43] LABS: C REACTIVE PROTEIN QUANTITATIV 1.86 MG/DL (0.00-0.30); CALCIUM LEVEL 10.2 MG/DL (8.8-10.2); CREATININE FOR GFR 1.47 MG/DL (0.55-1.30); FREE T4 0.79 NG/DL (0.76-1.46); GLOMERULAR FILTRATION RATE 38.6 (>45); POTASSIUM SERUM 4.4 MEQ/L (3.5-5.1); THYROID STIMULATING HORMONE 9.43 uIU/ML (0.358-3.740)
[2020-11-26] MEDS ORDERED: ceFAZolin SOD 1 GM in D5W MINI-BAG PLUS 50 ML IV ONE (12:00)
[2020-11-26] MEDS ORDERED: VANCOMYCIN HCL 2,000 MG in D5W 500 ML IV ONE (12:15)
[2020-11-26] MEDS ORDERED: CEPH500C PO (12:38)
[2020-11-26] MEDS ORDERED: DOXY100C37 PO (12:38)
[2020-11-26] MEDS ORDERED: MORPHINE 4 MG/ML 1ML VIAL/SYRINGE (J2270) IV PRN (12:45)
[2020-11-26] MEDS ORDERED: VANCOMYCIN HCL 1,000 MG, VIAL MATE ADAPTER 1 EACH in D5W 250 ML IV ONE ×2 (13:00→14:00)
[2020-11-26 13:54] LABS: RSV AMPLIFICATION NEGATIVE (NEGATIVE)
[2020-11-26 13:55] LABS: HEMATOCRIT 35.7 % (36.0-47.0); HEMOGLOBIN 11.3 g/dl (12.0-15.5); MEAN CORPUSCULAR HEMOGLOBIN 32.5 pg (27.0-33.0); MEAN CORPUSCULAR HGB CONC 31.7 g/dl (32.0-36.5); MEAN CORPUSCULAR VOLUME 102.6 fl (80.0-96.0); PLATELET COUNT, AUTOMATED 322 10^3/uL (150-450); RED BLOOD COUNT 3.48 10^6/uL (4.00-5.40); WHITE BLOOD COUNT 9.1 10^3/uL (4.0-10.0)
[2020-11-26 15:44] VITALS: BP 165/70
[2020-11-26] MEDS ORDERED: ISOVUE-370 76% 100ML VIAL As Ordered ONE (16:07)
--- NOTE | 2020-11-26 16:07 | HPEPDOC ---
[facility] Medical History & Physical Date of Admission Nov 26, 2020 Date of Service: Nov 26, 2020 History and Physical CHIEF COMPLAINT: bilateral leg pain and swelling, cellulitis HISTORY OF PRESENT ILLNESS: 60-year-old female with a history of hypothyroidism hypertension and obesity recently admitted to [facility] 11/23 and 11/23 for bilateral lower cellulitis and had asked to be discharged with PO doxycycline and close f/u with PCP and podiatry. She returns with worsening lower extremity bilateral lower extremity redness, pain and swelling, worse on the left side. Patient denies any subjective fevers, chills, chest pain, palpitation, shortness of breath, nausea, vomiting, diarrhea or cough. Patient states her recurrent history of the cellulitis, particularly in 2006 which needed incision and drainage on the left lower extremity which has left behind a large anterior scar. On arrival to the ED, the patient is afebrile without leukocytosis. ESR elevated at 56. CRP 1.86. Blood cultures x 2 sent. Started on IV vancomycin in the ER. 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 REVIEW OF SYSTEMS: 10 point review of systems conducted pertinents listed in HPI HOME MEDICATIONS: Please see below. PHYSICAL EXAMINATION: VITAL SIGNS: please see below General: NAD, comfortable HEENT: PERRLA, EOMI, sclerae clear Neck: supple, normal ROM, no JVD Respiratory: lungs CTAB, no wheeze, no rales, no crackles CVS: RRR, normal S1, S2, no murmurs Abdo: soft, no masses, no hepatosplenomegaly, BS+, no rebound tenderness Extremities: 2-3+ edema, non palpable pulses, but STRONG on bedside doppler MSK: no joint deformities, normal ROM Neuro: no focal neuro deficits, moving all 4 extremities, CN2-12 intact. Strength 5/5 in all 4 extremities. No nystagmus. Skin: bilateral LE erythema, swelling and pain to palpation, worse on L than R, no purulence or weeping. Marker used to delineate borders. Psych: calm, cooperative, AAO x 3 LABORATORY DATA: See below. IMAGING: CTA aort w runoff (11/26/20): Suboptimal study due to patient body habitus and poor contrast opacification as above. CT angiography nondiagnostic below the common iliacs. Diffuse calf edema bilaterally. Fatty infiltration of the liver. Venous duplex (11/21/20): Right deep veins: Unremarkable. The common femoral, femoral and popliteal veins are patent without thrombus. Normal Doppler waveforms. Normal compressibility and/or augmentation response. Right superficial veins: Saphenofemoral junction is patent without thrombus. Left deep veins: Unremarkable. The common femoral, femoral and popliteal veins are patent without thrombus. Normal Doppler waveforms. Normal compressibility and/or augmentation response. Left superficial veins: Saphenofemoral junction is patent without thrombus. Soft tissues: Unremarkable. IMPRESSION: No sonographic evidence of deep vein thrombosis. MICROBIOLOGY: Please see below. ASSESSMENT: 60 yo F with a hx of HTN, hypothyroidism, HTN, admitted with worsening cellulitis despite PO therapy with doxycycline as well as concerns for acute limb ischemia of the L toes. . PLAN: #Bilateral LE cellulitis - severe erythema, pain, no purulence - failed doxycycline PO - start vancomycin, renally dosed - ordered MRSA screen - blood cultures x 2 sent - elevated limbs #Faint LLE peripheral pulses - strong on bedside dopplers bilateral, repeat q6h - suspect hx of PAD - ordered CTA w/ runoff to assess for limb perfusion non diagnostic - arterial dopplers ordered for AM CKD 3 - Cr 1.47 - d/w Dr. Gonzalez, last seen in clinic in 07/2019, Cr 1.33 - he agrees with CTA w/ runoff and clears patient to receive IV contrast - initiated IVF 150 cc/hr x 12 hours - repeat BMP in am #HTN - well controlled - resume home amlodipine 5 mg daily #hypothyroidism - TSH 9.430, FT4 0.79 - does not take meds #Obesity, BMI 76 - complicating care - A1c 5.4 Dispo: pending clinical improvement Vital Signs Vital Signs Date Time Temp Pulse Resp B/P (MAP) Pulse Ox O2 Delivery O2 Flow Rate FiO2 11/26/20 15:08 129/81 (97) 11/26/20 15:01 94 18 95 Room Air 11/26/20 09:37 97.7 Laboratory Data Labs 24H Laboratory Tests 2 11/26/20 10:03: Immature Granulocyte % (Auto) 0.5, Neutrophils (%) (Auto) 78.3H, Lymphocytes (%) (Auto) 11.4L, Monocytes (%) (Auto) 6.2H, Eosinophils (%) (Auto) 2.7, Basophils (%) (Auto) 0.9, Neutrophils # (Auto) 6.7, Lymphocytes # (Auto) 1.0L, Monocytes # (Auto) 0.5, Eosinophils # (Auto) 0.2, Basophils # (Auto) 0.1, Nucleated Red Blood Cells % (auto) 0.0, Erythrocyte Sedimentation Rate 56H, Anion Gap 8, Glomerular Filtration Rate 38.6L, Calcium Level 10.2, C-Reactive Protein, Quantitative 1.86H, Thyroid Stimulating Hormone (TSH) 9.430H, Free Thyroxine 0.79 11/26/20 13:02: Coronavirus (COVID-19)(PCR) NEGATIVE, Influenza Type A (RT-PCR) NEGATIVE, Influenza Type B (RT-PCR) NEGATIVE, Respiratory Syncytial Virus (PCR) NEGATIVE, Methicillin-Resist S.aureus DNA PCR NOT DETECTED 11/26/20 13:44: Nucleated Red Blood Cells % (auto) 0.0 CBC/BMP Laboratory Tests 11/26/20 10:03 11/26/20 13:44 Microbiology Microbiology 11/26/20 Blood Culture, Received Pending 11/26/20 Blood Culture, Received Pending Home Medications Scheduled Amlodipine Besylate (Amlodipine Besylate) 5 Mg Tablet, 5 MG PO DAILY Calcitriol (Calcitriol) 0.25 Mcg Capsule, 0.25 MCG PO DAILY Cephalexin (Cephalexin) 500 Mg Capsule, 500 MG PO BID FILLED 11/22/20 FOR 7 DAYS Cholecalciferol (Vitamin D3) (Vitamin D3) 250 Mcg Tablet, 250 MCG PO DAILY Doxycycline Monohydrate (Doxycycline Monohydrate) 100 Mg Capsule, 100 MG PO BID FILLED 11/22/20 FOR 7 DAYS Magnesium Oxide (Magnesium Oxide) 400 Mg Tablet, 400 MG PO DAILY Scheduled PRN Acetaminophen (Tylenol Extra Strength) 500 Mg Tablet, 2,000 MG PO BID PRN for PAIN Allergies Coded Allergies: No Known Allergies (Unverified , 11/21/20) NAKIA WAGNER MD Nov 26, 2020 16:07
--- NOTE | 2020-11-26 17:58 | REP ---
INDICATION: CTA w/ runoff r/o bilatera limb ischemia. COMPARISON: None. TECHNIQUE: Helical scanning is acquired following the intravenous injection of 100 mL of Isovue 370. 3 mm axial images are re-formatted. Coronal and sagittal MPR images are generated. Curved aorta and iliac MPR images are generated. FINDINGS: Scan quality is substantially inhibited by this patient's body habitus. This produces ring artifact in the center of the field of view and has led apparently to less than optimal arterial lumen contrast enhancement. CT angiography images do not show the arterial tree reliably below the common iliac arteries. Nonvascular abnormalities: There is diffuse fatty infiltration of the liver. There appears to be a small cortical cyst anteriorly in the left kidney. There is a hypertrophied left inguinal lymph node which measures 2.0 x 3.8 by 2.8 cm. There are superficial vein varicosities in the upper thighs bilaterally although these are mild. There is a small supraumbilical ventral hernia trans Stein abdominal fat. There is diffuse subcutaneous soft tissue edema in the calf some bilaterally. CT angiography findings: The visualized portions of the aortic arch are normal in appearance. Descending thoracic aorta is widely patent and normal in caliber. The suprarenal and infrarenal abdominal aorta is normal in caliber. Celiac and superior mesenteric artery axes are patent without definite evidence of stenosis. Renal arteries are not well seen. The inferior mesenteric artery is not seen well. Common iliac arteries appear to be patent bilaterally. The lower extremity arterial tree is poorly opacified. I do not see significant evidence of a vascular calcification in the legs. IMPRESSION: Suboptimal study due to patient body habitus and poor contrast opacification as above. CT angiography nondiagnostic below the common iliacs. Diffuse calf edema bilaterally. Fatty infiltration of the liver. <Electronically signed by Satinder Ledesma > 11/26/20 [id number]
[2020-11-26] MEDS: NS 1,000 ML IV SCH ×2 (18:49→22:59)
[2020-11-26 19:12] LABS: HEMOGLOBIN 11.1 g/dl (12.0-15.5); MEAN CORPUSCULAR HEMOGLOBIN 31.8 pg (27.0-33.0); MEAN CORPUSCULAR HGB CONC 30.8 g/dl (32.0-36.5); MEAN CORPUSCULAR VOLUME 103.2 fl (80.0-96.0); PLATELET COUNT, AUTOMATED 344 10^3/uL (150-450); RED BLOOD COUNT 3.49 10^6/uL (4.00-5.40); WHITE BLOOD COUNT 10.2 10^3/uL (4.0-10.0)
[2020-11-26] MEDS: traMADol 50 MG TAB PO PRN (21:03)
[2020-11-26 22:00] VITALS: BP 153/72
[2020-11-26] MEDS: VANCOMYCIN HCL 1,000 MG, VIAL MATE ADAPTER 1 EACH in D5W 250 ML IV SCH (22:59)
[2020-11-27 01:06] LABS: HEMATOCRIT 31.3 % (36.0-47.0); HEMOGLOBIN 9.8 g/dl (12.0-15.5); MEAN CORPUSCULAR HEMOGLOBIN 32.2 pg (27.0-33.0); MEAN CORPUSCULAR HGB CONC 31.3 g/dl (32.0-36.5); PLATELET COUNT, AUTOMATED 256 10^3/uL (150-450); RED BLOOD COUNT 3.04 10^6/uL (4.00-5.40)
[2020-11-27] MEDS: VANCOMYCIN HCL 1,000 MG, VIAL MATE ADAPTER 1 EACH in D5W 250 ML IV SCH ×2 (05:03→20:32)
[2020-11-27] MEDS: traMADol 50 MG TAB PO PRN ×2 (05:04→13:11)
[2020-11-27] MEDS: NS 1,000 ML IV SCH ×2 (05:20→12:42)
[2020-11-27 05:49] LABS: HEMATOCRIT 32.7 % (36.0-47.0); MEAN CORPUSCULAR HEMOGLOBIN 31.6 pg (27.0-33.0); MEAN CORPUSCULAR HGB CONC 30.6 g/dl (32.0-36.5); MEAN CORPUSCULAR VOLUME 103.5 fl (80.0-96.0); PLATELET COUNT, AUTOMATED 262 10^3/uL (150-450); RED BLOOD COUNT 3.16 10^6/uL (4.00-5.40); WHITE BLOOD COUNT 6.7 10^3/uL (4.0-10.0)
[2020-11-27 06:00] VITALS: BP 143/77
[2020-11-27 06:23] LABS: ALBUMIN 3.4 GM/DL (3.2-5.2); BILIRUBIN,TOTAL 0.3 MG/DL (0.2-1.0); CALCIUM LEVEL 9.3 MG/DL (8.8-10.2); CREATININE FOR GFR 1.55 MG/DL (0.55-1.30); GLOMERULAR FILTRATION RATE 36.3 (>45); POTASSIUM SERUM 4.2 MEQ/L (3.5-5.1); TOTAL PROTEIN 7.1 GM/DL (6.4-8.2); VANCOMYCIN LEVEL TROUGH 20.1 UG/ML (10.0-20.0)
--- NOTE | 2020-11-27 07:40 | IPNPDOC ---
Text Note Date of Service The patient was seen on 11/27/20. NOTE Subjective: Patient seen and examined this morning at bedside. Patient was in mild distress because she was upset about infiltration of her IV in the right arm. Otherwise states her lower extremity cellulitis appears to be getting better and is less painful. She denies any chest pain or shortness of breath. No acute overnight events reported to me. Objective: VITAL SIGNS: please see below Constitutional: Awake and alert, in no apparent distress. Morbidly obese ENT: Sclera are clear. Mucosa is moist. Respiratory: Lungs CTA bilaterally. No respiratory distress. No use of accessory muscles. Cardiovascular: RRR S1 and S2 are normal, no murmur Gastrointestinal: Abdomen is soft, non distended, non tender, BS present. Musculoskeletal: 2+ edema, non palpable pulses, but strong on bedside doppler Neurologic: No focal neurological deficit. Mental Status: A&O x3, normal affect Skin: bilateral LE erythema, swelling and pain to palpation, L>R, no purulence or weeping. Marker used to delineate borders appears to show improvement. IMAGING: CTA aort w runoff (11/26/20): Suboptimal study due to patient body habitus and poor contrast opacification as above. CT angiography nondiagnostic below the common iliacs. Diffuse calf edema bilaterally. Fatty infiltration of the liver. Venous duplex (11/21/20): Right deep veins: Unremarkable. The common femoral, femoral and popliteal veins are patent without thrombus. Normal Doppler waveforms. Normal compressibility and/or augmentation response. Right superficial veins: Saphenofemoral junction is patent without thrombus. Left deep veins: Unremarkable. The common femoral, femoral and popliteal veins are patent without thrombus. Normal Doppler waveforms. Normal compressibility and/or augmentation response. Left superficial veins: Saphenofemoral junction is patent without thrombus. Soft tissues: Unremarkable. IMPRESSION: No sonographic evidence of deep vein thrombosis. Assessment/plan: 60 yo F with a hx of HTN, hypothyroidism, HTN, admitted with worsening cellulitis despite PO therapy with doxycycline as well as concerns for acute limb ischemia of the L toes. #Bilateral LE cellulitis - erythema, pain, no purulence - tried doxycycline PO outpatient for a few days but it didnt help, didnt' c omplete treatment, not considered treatment failure - Continue vancomycin, renally dosed - ordered MRSA screen - blood cultures x 2 sent negative to date - elevated limbs #Faint LLE peripheral pulses - strong on bedside dopplers bilaterally - suspect hx of PAD - ordered CTA w/ runoff to assess for limb perfusion non diagnostic # CKD 3 - Cr 1.47 on admit. d/w Dr. Gonzalez, last seen in clinic in 07/2019, Cr 1.33 - he agrees with CTA w/ runoff and clears patient to receive IV contrast - initiated IVF 150 cc/hr x 12 hours #HTN: well controlled. Resume home amlodipine 5 mg daily #hypothyroidism: Elevated TSH, normal Free T4. Repeat testing in 2-4 weeks with PCP. #Obesity, BMI 76: complicating care. A1c 5.4 A [facility] Hospital[facility] VS,Kathe, I+O VS, Kathe I+O Laboratory Tests 11/26/20 10:03 11/26/20 13:44 11/26/20 19:03 11/27/20 01:01 11/27/20 05:41 Vital Signs Date Time Temp Pulse Resp B/P (MAP) Pulse Ox O2 Delivery O2 Flow Rate FiO2 11/27/20 06:00 97.6 77 20 143/77 (99) 97 Room Air I&O- Last 24 Hours up to 6 AM 11/27/20 06:00 Intake Total 1440 ml Balance 1440 ml BLAS BERRY MD Nov 27, 2020 07:40
[2020-11-27] MEDS: ENOXAPARIN 40MG/0.4ML SYRINGE (J1650 PER 10MG) SC SCH (08:56)
[2020-11-27] MEDS: amLODIPine 5 MG TAB PO SCH (08:57)
[2020-11-27] MEDS ORDERED: LIDOCAINE 1% MDV 20ML VIAL As Ordered ONE (10:24)
[2020-11-27] MEDS ORDERED: SODIUM CHLORIDE 0.9% INJ 10 ML SYR IV PRN (12:00)
[2020-11-27 13:32] LABS: HEMATOCRIT 33.7 % (36.0-47.0); HEMOGLOBIN 10.5 g/dl (12.0-15.5); MEAN CORPUSCULAR HGB CONC 31.2 g/dl (32.0-36.5); MEAN CORPUSCULAR VOLUME 102.7 fl (80.0-96.0); PLATELET COUNT, AUTOMATED 278 10^3/uL (150-450); RED BLOOD COUNT 3.28 10^6/uL (4.00-5.40); WHITE BLOOD COUNT 7.2 10^3/uL (4.0-10.0)
[2020-11-27 14:00] VITALS: BP 140/79
--- NOTE | 2020-11-27 14:07 | REP ---
PROCEDURE NAME: MIDLINE INSERTION W/ SITERITE CLINICAL INFORMATION: Difficult access, needs IV antibiotics. COMPARISON: None. PROCEDURE DESCRIPTION: The procedure was performed by STEPHANIE Hebert, under the direct supervision of Dr. Ledesma. The risks and benefits of the procedure were explained to the patient and an informed consent was obtained both verbally and written. Directly prior to the start of the procedure a formal time-out was completed in the procedure room. The left cephalic vein was localized using ultrasound guidance. The skin was prepped and draped in sterile fashion. One mL of 1% lidocaine 10 mg/mL was used as a local anesthetic. Using ultrasound guidance the left cephalic vein was cannulated, and a 0.018 guidewire was inserted. The needle was removed and a 5.5 Portuguese dilator and peel-away sheath was inserted over the guidewire. A 5.5 Portuguese dual lumen catheter was cut to a length of 12 cm. The dilator was removed and the catheter was inserted over the guidewire. The peel-away sheath was removed and the catheter was flushed with heparinized saline as per hospital protocol. The catheter was affixed to the skin and a sterile dressing was applied. The patient tolerated the procedure well and there were no immediate complications. CONCLUSION: Mid line insertion into the left cephalic vein. <Electronically signed by Geovanna Abreu > 11/27/20 1352 <Electronically signed by Satinder Ledesma > 11/27/20 0642
[2020-11-27] MEDS: SODIUM CHLORIDE 0.9% INJ 10 ML SYR IV SCH (17:12)
[2020-11-27 18:19] LABS: HEMATOCRIT 34.4 % (36.0-47.0); HEMOGLOBIN 10.8 g/dl (12.0-15.5); MEAN CORPUSCULAR HEMOGLOBIN 32.1 pg (27.0-33.0); MEAN CORPUSCULAR HGB CONC 31.4 g/dl (32.0-36.5); MEAN CORPUSCULAR VOLUME 102.4 fl (80.0-96.0); PLATELET COUNT, AUTOMATED 261 10^3/uL (150-450); RED BLOOD COUNT 3.36 10^6/uL (4.00-5.40); WHITE BLOOD COUNT 8.2 10^3/uL (4.0-10.0)
[2020-11-27] MEDS: MORPHINE 2 MG/ML 1ML VIAL (J2270) IV PRN (20:33)
[2020-11-27 22:00] VITALS: BP 147/83
[2020-11-28 01:00] LABS: HEMATOCRIT 32.7 % (36.0-47.0); HEMOGLOBIN 10.2 g/dl (12.0-15.5); MEAN CORPUSCULAR HEMOGLOBIN 32.2 pg (27.0-33.0); MEAN CORPUSCULAR HGB CONC 31.2 g/dl (32.0-36.5); MEAN CORPUSCULAR VOLUME 103.2 fl (80.0-96.0); PLATELET COUNT, AUTOMATED 264 10^3/uL (150-450); RED BLOOD COUNT 3.17 10^6/uL (4.00-5.40); WHITE BLOOD COUNT 7.8 10^3/uL (4.0-10.0)
[2020-11-28] MEDS: SODIUM CHLORIDE 0.9% INJ 10 ML SYR IV SCH ×2 (05:27→17:57)
[2020-11-28] MEDS: traMADol 50 MG TAB PO PRN (05:27)
[2020-11-28 05:45] VITALS: BP 131/67
[2020-11-28] MEDS: ENOXAPARIN 40MG/0.4ML SYRINGE (J1650 PER 10MG) SC SCH ×2 (09:00→09:11)
[2020-11-28 09:07] LABS: HEMATOCRIT 31.6 % (36.0-47.0); HEMOGLOBIN 9.8 g/dl (12.0-15.5); MEAN CORPUSCULAR HEMOGLOBIN 31.9 pg (27.0-33.0); MEAN CORPUSCULAR VOLUME 102.9 fl (80.0-96.0); PLATELET COUNT, AUTOMATED 255 10^3/uL (150-450); RED BLOOD COUNT 3.07 10^6/uL (4.00-5.40); WHITE BLOOD COUNT 6.8 10^3/uL (4.0-10.0)
[2020-11-28] MEDS: amLODIPine 5 MG TAB PO SCH (09:09)
[2020-11-28] MEDS: MORPHINE 2 MG/ML 1ML VIAL (J2270) IV PRN ×2 (09:10→22:01)
[2020-11-28] MEDS: VANCOMYCIN HCL 1,000 MG, VIAL MATE ADAPTER 1 EACH in D5W 250 ML IV SCH (09:11)
[2020-11-28 09:28] LABS: ALBUMIN 3.5 GM/DL (3.2-5.2); BILIRUBIN,TOTAL 0.4 MG/DL (0.2-1.0); CALCIUM LEVEL 9.6 MG/DL (8.8-10.2); CREATININE FOR GFR 1.3 MG/DL (0.55-1.30); GLOMERULAR FILTRATION RATE 44.5 (>45); MAGNESIUM LEVEL 2.2 MG/DL (1.8-2.4); POTASSIUM SERUM 4.6 MEQ/L (3.5-5.1); TOTAL PROTEIN 6.8 GM/DL (6.4-8.2); VANCOMYCIN LEVEL TROUGH 21.5 UG/ML (10.0-20.0)
--- NOTE | 2020-11-28 12:02 | IPNPDOC ---
Text Note Date of Service The patient was seen on 11/28/20. NOTE Subjective: Patient seen and examined this morning at bedside. Tells me she says her legs look better but she still feels uncomfortable and is in pain. Says her arm feels much better after the IV infiltrated yesterday. She denies any chest pain or shortness of breath denies any fevers or chills. No acute overnight events reported to me. Objective: VITAL SIGNS: please see below Constitutional: Awake and alert, in no apparent distress. Morbidly obese ENT: Sclera are clear. Mucosa is moist. Respiratory: Lungs CTA bilaterally. No respiratory distress. No use of accessory muscles. Cardiovascular: RRR S1 and S2 are normal, no murmur Gastrointestinal: Abdomen is soft, non distended, non tender, BS present. Musculoskeletal: 2+ edema, non palpable pulses, but strong on bedside doppler Neurologic: No focal neurological deficit. Mental Status: A&O x3, normal affect Skin: bilateral LE erythema, swelling and pain to palpation, L>R, no purulence or weeping. Marker used to delineate borders appears to show improvement daily. IMAGING: CTA aort w runoff (11/26/20): Suboptimal study due to patient body habitus and poor contrast opacification as above. CT angiography nondiagnostic below the common iliacs. Diffuse calf edema bilaterally. Fatty infiltration of the liver. Venous duplex (11/21/20): Right deep veins: Unremarkable. The common femoral, femoral and popliteal veins are patent without thrombus. Normal Doppler waveforms. Normal compressibility and/or augmentation response. Right superficial veins: Saphenofemoral junction is patent without thrombus. Left deep veins: Unremarkable. The common femoral, femoral and popliteal veins are patent without thrombus. Normal Doppler waveforms. Normal compressibility and/or augmentation response. Left superficial veins: Saphenofemoral junction is patent without thrombus. Soft tissues: Unremarkable. IMPRESSION: No sonographic evidence of deep vein thrombosis. Assessment/plan: 60 yo F with a hx of HTN, hypothyroidism, HTN, admitted with worsening cellulitis despite PO therapy with doxycycline. #Bilateral LE cellulitis - erythema, pain, no purulence. Continue to improve. Continue present ma nagement. - tried doxycycline PO outpatient for a few days but it didnt help, didnt' complete treatment, not considered treatment failure - Continue vancomycin, renally dosed - ordered MRSA screen - blood cultures x 2 sent negative to date - elevated limbs - 1x lasix 40IV today may help with swelling #Faint LLE peripheral pulses - strong on bedside dopplers bilaterally - suspect hx of PAD - ordered CTA w/ runoff to assess for limb perfusion non diagnostic. Patient refused any further workup. # CKD 3 : Cr 1.47 on admit. d/w Dr. Gonzalez, last seen in clinic in 07/2019, Cr 1.33 he agrees with CTA w/ runoff and clears patient to receive IV contrast #HTN: well controlled. Resume home amlodipine 5 mg daily #hypothyroidism: Elevated TSH, normal Free T4. Repeat testing in 2-4 weeks with PCP. #Obesity, BMI 76: complicating care. A1c 5.4 A [facility]ist Kathe MCKEON, I+O VSKathe I+O Laboratory Tests 11/27/20 13:17 11/27/20 18:07 11/28/20 00:50 11/28/20 08:16 11/28/20 08:19 Vital Signs Date Time Temp Pulse Resp B/P (MAP) Pulse Ox O2 Delivery O2 Flow Rate FiO2 11/28/20 09:20 20 Room Air 11/28/20 09:09 73 142/79 11/28/20 05:45 97.3 95 I&O- Last 24 Hours up to 6 AM 11/28/20 06:00 Intake Total 2500 ml Balance 2500 ml BLAS BERRY MD Nov 28, 2020 12:02
[2020-11-28] MEDS ORDERED: FUROSEMIDE 40MG/4ML VIAL (J1940) IV ONE (12:15)
[2020-11-28 14:42] VITALS: BP 137/60
[2020-11-28 22:00] VITALS: BP 164/91
[2020-11-29] MEDS ORDERED: VANCOMYCIN HCL 1,000 MG, VIAL MATE ADAPTER 1 EACH in D5W 250 ML IV SCH ×3
[2020-11-29] MEDS: SODIUM CHLORIDE 0.9% INJ 10 ML SYR IV SCH ×2 (05:17→18:07)
[2020-11-29 06:00] VITALS: BP 138/72
[2020-11-29] MEDS: ENOXAPARIN 40MG/0.4ML SYRINGE (J1650 PER 10MG) SC SCH (08:22)
[2020-11-29] MEDS: amLODIPine 5 MG TAB PO SCH (08:25)
[2020-11-29 09:26] LABS: ALBUMIN 3.9 GM/DL (3.2-5.2); BILIRUBIN,TOTAL 0.5 MG/DL (0.2-1.0); CREATININE FOR GFR 1.32 MG/DL (0.55-1.30); GLOMERULAR FILTRATION RATE 43.7 (>45); MAGNESIUM LEVEL 2.2 MG/DL (1.8-2.4); POTASSIUM SERUM 3.9 MEQ/L (3.5-5.1); TOTAL PROTEIN 7.7 GM/DL (6.4-8.2)
[2020-11-29] MEDS ORDERED: DULoxetine 20 MG CAP (CYMBALTA) PO ONE (09:30)
[2020-11-29] MEDS ORDERED: MORPHINE 4 MG/ML 1ML VIAL/SYRINGE (J2270) IV ONE (09:30)
--- NOTE | 2020-11-29 10:46 | IPNPDOC ---
Text Note Date of Service The patient was seen on 11/29/20. NOTE Subjective: Patient seen and examined this morning at bedside. Patient wanted to discuss her anxiety and depression this morning patient reveals to me that she used to take duloxetine in the past but hasn't seen a primary care physician since Christmastime and is interested in restarting her medication. She has an appointment to see a new primary care physician today which she'll miss because she is being admitted. Patient tells me her legs are feeling better and looks better. 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 She denies any chest pain or shortness of breath denies any fevers or chills. No acute overnight events reported to me. Objective: VITAL SIGNS: please see below Constitutional: Awake and alert, in no apparent distress. Morbidly obese ENT: Sclera are clear. Mucosa is moist. Respiratory: Lungs CTA bilaterally. No respiratory distress. No use of accessory muscles. Cardiovascular: RRR S1 and S2 are normal, no murmur Gastrointestinal: Abdomen is soft, non distended, non tender, BS present. Musculoskeletal: 2+ edema, non palpable pulses, but strong on bedside doppler Neurologic: No focal neurological deficit. Mental Status: A&O x3, normal affect Skin: bilateral LE erythema, swelling and pain to palpation, L>R, no purulence or weeping. Marker used to delineate borders significantly improved from prior. IMAGING: CTA aort w runoff (11/26/20): Suboptimal study due to patient body habitus and poor contrast opacification as above. CT angiography nondiagnostic below the common iliacs. Diffuse calf edema bilaterally. Fatty infiltration of the liver. Venous duplex (11/21/20): Right deep veins: Unremarkable. The common femoral, femoral and popliteal veins are patent without thrombus. Normal Doppler waveforms. Normal compressibility and/or augmentation response. Right superficial veins: Saphenofemoral junction is patent without thrombus. Left deep veins: Unremarkable. The common femoral, femoral and popliteal veins are patent without thrombus. Normal Doppler waveforms. Normal compressibility and/or augmentation response. Left superficial veins: Saphenofemoral junction is patent without thrombus. Soft tissues: Unremarkable. IMPRESSION: No sonographic evidence of deep vein thrombosis. Assessment/plan: 60 yo F with a hx of HTN, hypothyroidism, HTN, admitted with worsening cellulitis despite PO therapy with doxycycline. #Bilateral LE cellulitis - erythema, pain, no purulence. Continue to improve. - I will discontinue vancomycin today given the negative MRSA screening and transition the patient to IV cefazolin 2 g 3 times a day, I anticipate they'll b e able to switch her to by mouth Keflex to continue treatment at home upon discharge. - MRSA screen is negative - blood cultures x 2 sent negative to date - elevated limbs # Anxiety/depression: Resumed her prior medication which she states helped duloxetine #Faint LLE peripheral pulses but strong on bedside dopplers bilaterally, suspect underlying PAD. ordered CTA w/ runoff to assess for limb perfusion non diagnostic. Patient refused any further workup. # CKD 3 : Cr 1.47 on admit. d/w Dr. Gonzalez, last seen in clinic in 07/2019, Cr 1.33 he agrees with CTA w/ runoff and clears patient to receive IV contrast #HTN: well controlled. Resume home amlodipine 5 mg daily #hypothyroidism: Elevated TSH, normal Free T4. Repeat testing in 2-4 weeks with PCP. #Obesity, BMI 76: complicating care. A1c 5.4 Disposition: Anticipate discharge to home tomorrow, cleared by physical therapy [facility] Kathe MCKEON, I+O Kathe MCKEON I+O Laboratory Tests 11/29/20 08:36 Vital Signs Date Time Temp Pulse Resp B/P (MAP) Pulse Ox O2 Delivery O2 Flow Rate FiO2 11/29/20 09:44 18 11/29/20 09:34 Room Air 11/29/20 08:25 78 144/68 11/29/20 06:00 96.3 99 I&O- Last 24 Hours up to 6 AM 11/29/20 06:00 Intake Total 1470 ml Output Total 0 ml Balance 1470 ml BLAS BERRY MD Nov 29, 2020 10:46
[2020-11-29] MEDS: ceFAZolin SOD 2 GM in IV 1 EA IV SCH ×2 (10:59→18:07)
[2020-11-29 14:00] VITALS: BP 141/74
[2020-11-29] MEDS ORDERED: LIDOCAINE 1% MDV 20ML VIAL As Ordered ONE (14:17)
[2020-11-29] MEDS: MORPHINE 2 MG/ML 1ML VIAL (J2270) IV PRN ×2 (15:29→23:04)
--- NOTE | 2020-11-29 16:07 | REP ---
PROCEDURE NAME: MIDLINE INSERTION W/ SITERITE CLINICAL INFORMATION: leaking midline needs to be replaced. COMPARISON: None. PROCEDURE DESCRIPTION: The procedure was performed by STEPHANIE Hebert, under the direct supervision of Dr. Ledesma. The risks and benefits of the procedure were explained to the patient and an informed consent was obtained both verbally and written. Directly prior to the start of the procedure a formal time-out was completed in the procedure room. The patient arrived with a pre-existing midline catheter in the left cephalic that was placed on the 11/27/2020. According to the nursing staff the midline was leaking fluid and needed to be replace. Upon inspection of midline it was felt that the midline was kinked at the insertion site. A 0.018 guidewire was inserted into the existing midline, the midline was removed and a 5.5 Mauritian dilator and peel-away sheath was inserted over the guidewire. A 5.5 Mauritian dual lumen catheter was cut to a length of 12 cm. The dilator was removed and the catheter was inserted over the guidewire. The peel-away sheath was removed and the catheter was flushed with heparinized saline as per hospital protocol. The catheter was affixed to the skin and a sterile dressing was applied. The patient tolerated the procedure well and there were no immediate complications. CONCLUSION: Mid line exchange. <Electronically signed by Geovanna Abreu > 11/29/20 1539 <Electronically signed by Satinder Ledesma > 11/29/20 [id number]
[2020-11-29 20:16] VITALS: BP 149/85
[2020-11-30] MEDS: ceFAZolin SOD 2 GM in IV 1 EA IV SCH (03:02)
[2020-11-30 06:00] VITALS: BP 174/79
[2020-11-30 07:18] LABS: ALBUMIN 3.5 GM/DL (3.2-5.2); BILIRUBIN,TOTAL 0.5 MG/DL (0.2-1.0); CALCIUM LEVEL 9.5 MG/DL (8.8-10.2); CREATININE FOR GFR 1.5 MG/DL (0.55-1.30); GLOMERULAR FILTRATION RATE 37.7 (>45); MAGNESIUM LEVEL 2.1 MG/DL (1.8-2.4); POTASSIUM SERUM 4.4 MEQ/L (3.5-5.1)
[2020-11-30] MEDS: SODIUM CHLORIDE 0.9% INJ 10 ML SYR IV SCH (07:58)
[2020-11-30 07:59] VITALS: BP 174/79
[2020-11-30] MEDS: ENOXAPARIN 40MG/0.4ML SYRINGE (J1650 PER 10MG) SC SCH ×2 (07:59→08:01)
[2020-11-30] MEDS: amLODIPine 5 MG TAB PO SCH (07:59)
[2020-11-30] MEDS ORDERED: DULoxetine 20 MG CAP (CYMBALTA) PO SCH (09:00)
[2020-11-30] MEDS ORDERED: CYMB1CAP4 PO (10:41)
[2020-11-30] MEDS ORDERED: TRAM50TA2 PO (10:41)
[2020-11-30] MEDS ORDERED: CEPH500C3 PO (10:41)
[2020-11-30] MEDS ORDERED: LASI20TA3 PO (10:49)
--- NOTE | 2020-11-30 10:50 | DS.PDOC ---
Discharge Summary General Date of Admission Nov 26, 2020 at 12:55 Date of Discharge 11/30/2020 Discharge Summary PROCEDURES PERFORMED DURING STAY: [None]. ADMITTING DIAGNOSES: 1. Bilateral lower extremity cellulitis DISCHARGE DIAGNOSES: 1. Bilateral lower extremity cellulitis 2. Anxiety/depression COMPLICATIONS/CHIEF COMPLAINT: Cellulitis Of Both Lower Legs. HISTORY OF PRESENT ILLNESS: From admitting H&P: 60-year-old female with a history of hypothyroidism hypertension and obesity recently admitted to [facility] 11/23 and 11/23 for bilateral lower cellulitis and had asked to be discharged with PO doxycycline and close f/u with PCP and podiatry. She returns with worsening lower extremity bilateral lower extremity redness, pain and swelling, worse on the left side. Patient denies any subjective fevers, chills, chest pain, palpitation, shortness of breath, nausea, vomiting, diarrhea or cou gh. Patient states her recurrent history of the cellulitis, particularly in 2006 which needed incision and drainage on the left lower extremity which has left behind a large anterior scar. On arrival to the ED, the patient is afebrile without leukocytosis. ESR elevated at 56. CRP 1.86. Blood cultures x 2 sent. Started on IV vancomycin in the ER. HOSPITAL COURSE: [60 yo F with a hx of HTN, hypothyroidism, HTN, admitted with worsening cellulitis despite PO therapy with doxycycline. Patient was initially on IV vancomycin with improvement and when MRSA screening was negative patient was transitioned to IV cefazolin showing good improvement as well patient will be transitioned upon discharge to Keflex 504 times daily for 1 more week. At the time of discharge patient's lower sternal cellulitis had almost completely resolved. Blood cultures were negative. Patient was instructed not to use her back scratch on her legs at this is likely the cause of her developing her lower extremity cellulitis as this that she is using is wooded and dirty. I will give her low-dose of Lasix 20 mg by mouth daily for 1 month to help to continue to diurese some of the lower extremity swelling that she has. # Anxiety/depression: Resumed her prior medication which she states helped duloxetine # CKD 3 : Cr 1.47 on admit. d/w Dr. Gonzalez, last seen in clinic in 07/2019, recommended the patient needs to follow back with nephrology #HTN: well controlled. Resume home amlodipine 5 mg daily #hypothyroidism: Elevated TSH, normal Free T4. Repeat testing in 2-4 weeks with PCP. DISCHARGE MEDICATIONS: Please see below. ALLERGIES: Please see below. PHYSICAL EXAMINATION ON DISCHARGE: VITAL SIGNS: Please see below General: NAD, comfortable HEENT: PERRLA, EOMI, sclerae clear Neck: supple, normal ROM, no JVD Respiratory: lungs CTAB, no wheeze, no rales, no crackles CVS: RRR, normal S1, S2, no murmurs Abdo: soft, no masses, no hepatosplenomegaly, BS+, no rebound tenderness Extremities: 2-3+ edema, non palpable pulses, but STRONG on bedside doppler MSK: no joint deformities, normal ROM Neuro: no focal neuro deficits, moving all 4 extremities, CN2-12 intact. Strength 5/5 in all 4 extremities. No nystagmus. Skin: Her lower extremities erythema and swelling have both improved significantly margins are much improved and the erythema is much more subtle and diffuse now no purulence or weeping. Legs are no longer painful to palpation and the swelling is decreased which I believe the one dose of Lasix helped. Psych: calm, cooperative, AAO x 3 LABORATORY DATA: Please see below. IMAGING: See chart PROGNOSIS: Fair ACTIVITY: [As tolerated]. DIET: 2 g sodium diet DISPOSITION: Home DISCHARGE INSTRUCTIONS: Please follow up with your primary care physician within 1 week from discharge. If you do not have one, please follow up with us to schedule an appointment. Please keep all of your follow up appointments. Please call central to book your appointments with hospital specialists. Please take all your medications as prescribed. Please call/come to Clinic or go to the Emergency Department if - Temp >101, intractable Nausea/Vomiting, Diarrhea, Mouth sores, Headaches, Altered mental status, Seizures, sudden onset of swelling, bleeding, shortness of breath or chest pain. ITEMS TO FOLLOWUP ON ON OUTPATIENT: 1. Follow up with your primary care physician within 3-5 days discharge. Follow- up with nephrology. Follow up with psychiatry. 2. Stop using her back scratch her to scratch her lower extremities as this likely contributed to developing the cellulitis. DISCHARGE CONDITION: [Stable]. TIME SPENT ON DISCHARGE: 35 minutes. Vital Signs/I&Os Vital Signs Date Time Temp Pulse Resp B/P (MAP) Pulse Ox O2 Delivery O2 Flow Rate FiO2 11/30/20 07:59 80 174/79 11/30/20 06:00 98.0 20 97 Room Air I&O- Last 24 Hours up to 6 AM 11/30/20 06:00 Intake Total 1550 ml Balance 1550 ml Laboratory Data Labs 24H Laboratory Tests 2 11/30/20 06:21: Anion Gap 8, Glomerular Filtration Rate 37.7L, Calcium Level 9.5, Magnesium Level 2.1, Total Bilirubin 0.5, Aspartate Amino Transf (AST/SGOT) 11, Alanine Aminotransferase (ALT/SGPT) 20, Alkaline Phosphatase 84, Total Protein 7.0, Albumin 3.5, Albumin/Globulin Ratio 1.0L CBC/BMP Laboratory Tests 11/30/20 06:21 Microbiology Microbiology 11/26/20 Blood Culture - Preliminary, Resulted No Growth after 72 hours. All specime... 11/26/20 Blood Culture - Preliminary, Resulted No Growth after 72 hours. All specime... Discharge Medications Scheduled Amlodipine Besylate (Amlodipine Besylate) 5 Mg Tablet, 5 MG PO DAILY, (Reported) Calcitriol (Calcitriol) 0.25 Mcg Capsule, 0.25 MCG PO DAILY, (Reported) Cholecalciferol (Vitamin D3) (Vitamin D3) 250 Mcg Tablet, 250 MCG PO DAILY, (Reported) Duloxetine HCl (Cymbalta) 20 Mg Capsule.dr, 40 MG PO DAILY Magnesium Oxide (Magnesium Oxide) 400 Mg Tablet, 400 MG PO DAILY, (Reported) cephALEXin (cephALEXin) 500 Mg Capsule, 500 MG PO QID Scheduled PRN Acetaminophen (Tylenol Extra Strength) 500 Mg Tablet, 2,000 MG PO BID PRN for PAIN, (Reported) Tramadol HCl (Tramadol HCl) 50 Mg Tablet, 50 MG PO Q8HP PRN for MODERATE/SEVERE PAIN (PS 5-10) Allergies Coded Allergies: No Known Allergies (Unverified , 11/21/20) BLAS BERRY MD Nov 30, 2020 10:50
== END 2020-11-30 15:05 | disposition home or self-care (01) | DRG 603 ==
LOC: M ED 09:37 → M ED INP 12:55 → M MS5PR 15:15
PROVIDERS: ADMIT Family Medicine; ATTEND Family Medicine
PROC: 05HF33Z Insertion of Infusion Device into Left Cephalic Vein, Percutaneous Approach (ICD-10-PCS; principal; 2020-11-27 11:13)
PROC: 05PY33Z Removal of Infusion Device from Upper Vein, Percutaneous Approach (ICD-10-PCS; 2020-11-29)
PROC: 05HF33Z Insertion of Infusion Device into Left Cephalic Vein, Percutaneous Approach (ICD-10-PCS; 2020-11-29)
DX: L03.116 Cellulitis of left lower limb (principal); Z68.45 Body mass index [BMI] 70 or greater, adult; L03.115 Cellulitis of right lower limb; I12.9 Hypertensive chronic kidney disease with stage 1 through stage 4 chronic kidney disease, or unspecified chronic kidney disease; E03.9 Hypothyroidism, unspecified; E66.9 Obesity, unspecified; N18.30 Chronic kidney disease, stage 3 unspecified; M19.90 Unspecified osteoarthritis, unspecified site; R53.81 Other malaise; Z79.899 Other long term (current) drug therapy; Z20.822 Contact with and (suspected) exposure to COVID-19

== ENCOUNTER → 2020-12-06 | Outpatient (REF) | payer MEDICARE ==
[~2020-12-06] MED LIST changes: +CEPH500C3 PO; +CYMB1CAP4 PO; +DOXY100C37 PO; +LASI20TA3 PO; +TRAM50TA2 PO
[2020-12-06 16:23] LABS: BASO # 0.1 10^3/uL (0.0-0.2); BASO % 0.7 % (0.0-1.0); EOS # 0.2 10^3/uL (0.0-0.5); EOS % 1.4 % (0.0-3.0); HEMOGLOBIN 11.8 g/dl (12.0-15.5); LYMPH % 9.1 % (24.0-44.0); MEAN CORPUSCULAR HGB CONC 31.9 g/dl (32.0-36.5); MEAN CORPUSCULAR VOLUME 100.3 fl (80.0-96.0); MONO # 0.6 10^3/uL (0.0-0.8); MONO % 5.5 % (0.0-5.0); NEUTROPHILS # 8.9 10^3/uL (1.5-8.5); NEUTROPHILS % 82.6 % (36.0-66.0); PLATELET COUNT, AUTOMATED 324 10^3/uL (150-450); RED BLOOD COUNT 3.69 10^6/uL (4.00-5.40); WHITE BLOOD COUNT 10.8 10^3/uL (4.0-10.0)
[2020-12-06 16:56] LABS: ALBUMIN 3.8 GM/DL (3.2-5.2); BILIRUBIN,TOTAL 0.4 MG/DL (0.2-1.0); CALCIUM LEVEL 10.2 MG/DL (8.8-10.2); CREATININE FOR GFR 1.29 MG/DL (0.55-1.30); GLOMERULAR FILTRATION RATE 44.9 (>45); POTASSIUM SERUM 4.9 MEQ/L (3.5-5.1); TOTAL PROTEIN 7.6 GM/DL (6.4-8.2)
[2020-12-06 17:05] LABS: FOLATE 5.2 NG/ML
[2020-12-08 20:08] LABS: ANA (HEP2) Positive (.); FREE KAPPA LIGHT CHAINS SERUM 51.2 mg/L (3.3-19.4); FREE LAMBDA LIGHT CHAINS SERUM 38.8 mg/L (5.7-26.3); KAPPA/LAMBDA RATIO SERUM 1.32 (0.26-1.65); SSA SJOGRENS A <0.2 AI (0.0-0.9); SSB SJOGRENS B <0.2 AI (0.0-0.9)
== END ==
LOC: M SFHCADAM 14:57
PROVIDERS: ATTEND Physician Assistant
DX: R76.8 Other specified abnormal immunological findings in serum (principal); D89.89 Other specified disorders involving the immune mechanism, not elsewhere classified; N18.31 Chronic kidney disease, stage 3a; D75.89 Other specified diseases of blood and blood-forming organs; D64.9 Anemia, unspecified
CPT/HCPCS: 80053; 82607; 82728; 82746; 83550; 83883; 85025; 86038; 86235; 99496; G0463

== ENCOUNTER → 2021-04-08 | Outpatient (REF) | payer MEDICARE ==
[2021-04-08 17:14] LABS: HEMATOCRIT 38.2 % (36.0-47.0); MEAN CORPUSCULAR HEMOGLOBIN 31.8 pg (27.0-33.0); MEAN CORPUSCULAR HGB CONC 31.4 g/dl (32.0-36.5); MEAN CORPUSCULAR VOLUME 101.3 fl (80.0-96.0); PLATELET COUNT, AUTOMATED 300 10^3/uL (150-450); RED BLOOD COUNT 3.77 10^6/uL (4.00-5.40)
[2021-04-08 17:52] LABS: ALBUMIN 3.7 GM/DL (3.2-5.2); BILIRUBIN,TOTAL 0.4 MG/DL (0.2-1.0); CALCIUM LEVEL 10.4 MG/DL (8.8-10.2); CREATININE FOR GFR 1.35 MG/DL (0.55-1.30); FREE T4 0.77 NG/DL (0.76-1.46); GLOMERULAR FILTRATION RATE 42.6 (>45); THYROID STIMULATING HORMONE 6.83 uIU/ML (0.358-3.740); TOTAL PROTEIN 7.7 GM/DL (6.4-8.2)
[2021-04-08 19:29] LABS: HEMOGLOBIN A1c 5.6 %
== END ==
LOC: M SFHCADAM 13:09
PROVIDERS: ATTEND Physician Assistant
DX: N18.32 Chronic kidney disease, stage 3b (principal); E03.9 Hypothyroidism, unspecified; Z13.1 Encounter for screening for diabetes mellitus; R76.8 Other specified abnormal immunological findings in serum; Z79.899 Other long term (current) drug therapy

== ENCOUNTER → 2021-06-11 | Outpatient (REF) | payer MEDICARE ==
[~2021-06-11] MED LIST changes: -DOXY100C37 PO; +DOXY1CAP62 PO
== END ==
LOC: M SFHCRHEU 16:07
PROVIDERS: ATTEND Internal Medicine Rheumatology
DX: R76.8 Other specified abnormal immunological findings in serum (principal)

== ENCOUNTER → 2021-06-13 | Outpatient (REF) | payer MEDICARE ==
[2021-06-13 16:59] LABS: APPEARANCE, URINE HAZY (CLEAR); BACTERIA, URINE AUTO NEGATIVE (NEGATIVE); BILIRUBIN, URINE AUTO NEGATIVE (NEGATIVE); BLOOD, URINE BLOOD NEGATIVE (NEGATIVE); COLOR, URINE YELLOW (YELLOW); GLUCOSE, URINE (UA) AUTO NEGATIVE (NEGATIVE); KETONE, URINE AUTO NEGATIVE (NEGATIVE); LEUKOCYTE ESTERASE, URINE AUTO NEGATIVE (NEGATIVE); MUCUS, URINE SMALL (NEGATIVE); NITRITE, URINE AUTO NEGATIVE (NEGATIVE); PROTEIN, URINE AUTO 1+ mg/dL (NEGATIVE); RBC, URINE AUTO 1 /HPF (0-3); SPECIFIC GRAVITY URINE AUTO 1.014 (1.002-1.035); SQUAMOUS EPITHELIAL CELL UR AU 3 /HPF (0-6); UROBILINOGEN, URINE AUTO 0.2 mg/dL (0.0-2.0); WBC, URINE AUTO 3 /HPF (0-3)
[2021-06-13 17:24] LABS: BASO # 0.1 10^3/uL (0.0-0.2); BASO % 0.9 % (0.0-1.0); EOS # 0.2 10^3/uL (0.0-0.5); EOS % 2.3 % (0.0-3.0); HEMOGLOBIN 12.4 g/dl (12.0-15.5); LYMPH # 1.1 10^3/uL (1.5-5.0); LYMPH % 13.7 % (24.0-44.0); MEAN CORPUSCULAR HEMOGLOBIN 33.1 pg (27.0-33.0); MEAN CORPUSCULAR HGB CONC 31.8 g/dl (32.0-36.5); MONO # 0.6 10^3/uL (0.0-0.8); MONO % 7.1 % (2.0-8.0); NEUTROPHILS # 6.1 10^3/uL (1.5-8.5); NEUTROPHILS % 75.3 % (36.0-66.0); RED BLOOD COUNT 3.75 10^6/uL (4.00-5.40); WHITE BLOOD COUNT 8.2 10^3/uL (4.0-10.0)
[2021-06-13 17:37] LABS: BILIRUBIN,TOTAL 0.3 MG/DL (0.2-1.0); CALCIUM LEVEL 10.3 MG/DL (8.8-10.2); CREATININE FOR GFR 1.3 MG/DL (0.55-1.30); GLOMERULAR FILTRATION RATE 44.5 (>45); POTASSIUM SERUM 4.8 MEQ/L (3.5-5.1)
[2021-06-13 17:38] LABS: C REACTIVE PROTEIN QUANTITATIV 1.63 MG/DL (0.00-0.30); TOTAL PROTEIN 7.7 GM/DL (6.4-8.2)
[2021-06-13 18:14] LABS: CREATININE,RANDOM URINE 72.5 MG/DL; TOTAL PROTEIN,RANDOM URINE 33.5 MG/DL (0.0-12.0)
[2021-06-13 18:53] LABS: ERYTHROCYTE SEDIMENTATION RATE 48 mm/hr (0-30)
== END ==
LOC: M SFHCRHEU 13:35
PROVIDERS: ATTEND Internal Medicine Rheumatology
DX: R76.8 Other specified abnormal immunological findings in serum (principal)

== ENCOUNTER → 2021-10-24 | Outpatient (REF) | payer MEDICARE ==
[~2021-10-24] MED LIST changes: +DOXY-443 PO; -DOXY1CAP62 PO
[2021-10-24 16:44] LABS: HEMATOCRIT 38.9 % (36.0-47.0); MEAN CORPUSCULAR HEMOGLOBIN 33.1 pg (27.0-33.0); MEAN CORPUSCULAR HGB CONC 30.8 g/dl (32.0-36.5); MEAN CORPUSCULAR VOLUME 107.2 fl (80.0-96.0); PLATELET COUNT, AUTOMATED 284 10^3/uL (150-450); RED BLOOD COUNT 3.63 10^6/uL (4.00-5.40); WHITE BLOOD COUNT 9.5 10^3/uL (4.0-10.0)
[2021-10-24 17:10] LABS: ALBUMIN 3.6 GM/DL (3.2-5.2); BILIRUBIN,TOTAL 0.3 MG/DL (0.2-1.0); CALCIUM LEVEL 9.6 MG/DL (8.8-10.2); CREATININE FOR GFR 1.29 MG/DL (0.55-1.30); FREE T4 0.8 NG/DL (0.76-1.46); GLOMERULAR FILTRATION RATE 44.7 (>45); POTASSIUM SERUM 4.1 MEQ/L (3.5-5.1); THYROID STIMULATING HORMONE 5.41 uIU/ML (0.358-3.740); TOTAL PROTEIN 7.2 GM/DL (6.4-8.2)
[2021-10-24 17:39] LABS: HEMOGLOBIN A1c 5.7 %
== END ==
LOC: M SFHCADAM 14:00
PROVIDERS: ATTEND Physician Assistant
DX: R79.89 Other specified abnormal findings of blood chemistry (principal); N18.30 Chronic kidney disease, stage 3 unspecified; Z13.1 Encounter for screening for diabetes mellitus; Z79.899 Other long term (current) drug therapy

== ENCOUNTER → 2022-01-21 | Outpatient (REF) | payer MEDICARE ==
[2022-01-21 17:16] LABS: CALCIUM LEVEL 9.9 MG/DL (8.8-10.2); CREATININE FOR GFR 1.53 MG/DL (0.55-1.30); FREE T4 0.96 NG/DL (0.76-1.46); GLOMERULAR FILTRATION RATE 36.7 (>45); POTASSIUM SERUM 4.3 MEQ/L (3.5-5.1); THYROID STIMULATING HORMONE 4.63 uIU/ML (0.358-3.740)
== END ==
LOC: M SFHCADAM 13:14
PROVIDERS: ATTEND Physician Assistant
DX: R79.89 Other specified abnormal findings of blood chemistry (principal); I10 Essential (primary) hypertension

== ENCOUNTER → 2022-02-27 | Outpatient (REF) | payer MEDICARE ==
[2022-02-27 16:35] LABS: APPEARANCE, URINE CLEAR (CLEAR); BACTERIA, URINE AUTO NEGATIVE (NEGATIVE); BILIRUBIN, URINE AUTO NEGATIVE (NEGATIVE); BLOOD, URINE BLOOD NEGATIVE (NEGATIVE); COLOR, URINE YELLOW (YELLOW); GLUCOSE, URINE (UA) AUTO NEGATIVE (NEGATIVE); KETONE, URINE AUTO NEGATIVE (NEGATIVE); LEUKOCYTE ESTERASE, URINE AUTO NEGATIVE (NEGATIVE); NITRITE, URINE AUTO NEGATIVE (NEGATIVE); PROTEIN, URINE AUTO NEGATIVE (NEGATIVE); RBC, URINE AUTO 0 /HPF (0-3); SPECIFIC GRAVITY URINE AUTO 1.019 (1.002-1.035); SQUAMOUS EPITHELIAL CELL UR AU 2 /HPF (0-6); UROBILINOGEN, URINE AUTO 0.2 mg/dL (0.0-2.0); WBC, URINE AUTO 1 /HPF (0-3)
[2022-02-27 17:09] LABS: TOTAL PROTEIN,RANDOM URINE 35.1 MG/DL (0.0-12.0)
== END ==
LOC: M SFHCRHEU 12:05
PROVIDERS: ATTEND Internal Medicine Rheumatology
DX: R76.8 Other specified abnormal immunological findings in serum (principal); M35.3 Polymyalgia rheumatica; E06.3 Autoimmune thyroiditis; E66.01 Morbid (severe) obesity due to excess calories

== ENCOUNTER → 2022-03-11 | Outpatient (REF) | payer MEDICARE ==
[2022-03-11 17:18] LABS: ALBUMIN 3.7 GM/DL (3.2-5.2); BILIRUBIN,TOTAL 0.5 MG/DL (0.2-1.0); C REACTIVE PROTEIN QUANTITATIV 1.91 MG/DL (0.00-0.30); CALCIUM LEVEL 10.4 MG/DL (8.8-10.2); CREATININE FOR GFR 1.54 MG/DL (0.55-1.30); GLOMERULAR FILTRATION RATE 36.5 (>45); POTASSIUM SERUM 4.7 MEQ/L (3.5-5.1); TOTAL PROTEIN 7.5 GM/DL (6.4-8.2)
== END ==
LOC: M SFHCADAM 13:06
PROVIDERS: ATTEND Internal Medicine Rheumatology
DX: R76.8 Other specified abnormal immunological findings in serum (principal); M35.3 Polymyalgia rheumatica; E06.3 Autoimmune thyroiditis; E66.01 Morbid (severe) obesity due to excess calories

== ENCOUNTER → 2022-06-18 | Outpatient (REF) | payer MEDICARE ==
[2022-06-18 17:14] LABS: HEMATOCRIT 38.5 % (36.0-47.0); HEMOGLOBIN 12.1 g/dl (12.0-15.5); MEAN CORPUSCULAR HEMOGLOBIN 34.1 pg (27.0-33.0); MEAN CORPUSCULAR HGB CONC 31.4 g/dl (32.0-36.5); MEAN CORPUSCULAR VOLUME 108.5 fl (80.0-96.0); PLATELET COUNT, AUTOMATED 260 10^3/uL (150-450); RED BLOOD COUNT 3.55 10^6/uL (4.00-5.40)
[2022-06-18 17:42] LABS: CALCIUM LEVEL 10.4 MG/DL (8.8-10.2); CREATININE FOR GFR 1.52 MG/DL (0.55-1.30); MAGNESIUM LEVEL 2.2 MG/DL (1.8-2.4); POTASSIUM SERUM 4.8 MEQ/L (3.5-5.1)
== END ==
LOC: M SFHCADAM 14:20
PROVIDERS: ATTEND Physician Assistant
DX: I10 Essential (primary) hypertension (principal); N18.32 Chronic kidney disease, stage 3b

== ENCOUNTER → 2022-12-15 | Outpatient (REF) | payer MEDICARE ==
[~2022-12-15] MED LIST changes: -DOXY-350 PO; +DOXY-444 PO
[2022-12-15 13:02] LABS: HEMATOCRIT 39.5 % (36.0-47.0); HEMOGLOBIN 12.2 g/dl (12.0-15.5); MEAN CORPUSCULAR HEMOGLOBIN 33.9 pg (27.0-33.0); MEAN CORPUSCULAR HGB CONC 30.9 g/dl (32.0-36.5); MEAN CORPUSCULAR VOLUME 109.7 fl (80.0-96.0); PLATELET COUNT, AUTOMATED 248 10^3/uL (150-450); WHITE BLOOD COUNT 8.3 10^3/uL (4.0-10.0)
[2022-12-15 13:30] LABS: HEMOGLOBIN A1c 5.8 % (4.0-6.0)
[2022-12-15 13:45] LABS: FREE T4 0.93 NG/DL (0.89-1.76)
[2022-12-15 13:46] LABS: THYROID STIMULATING HORMONE 6.699 uIU/ML (0.55-4.78)
[2022-12-15 13:47] LABS: CREATININE, URINE 139.3 MG/DL; TOTAL 25(OH) VITAMIN D 71.8 NG/ML (20.0-100.0)
[2022-12-15 13:49] LABS: ALBUMIN 3.6 G/DL (3.2-5.2); ALKALINE PHOSPHATASE 94 U/L (46-116); ALT/SGPT 21 U/L (7.0-40); AST/SGOT < 8 U/L (<34); BILIRUBIN,TOTAL 0.3 MG/DL (0.3-1.2); BLOOD UREA NITROGEN 30 MG/DL (9-23); CALCIUM LEVEL 10.5 MG/DL (8.3-10.6); CARBON DIOXIDE LEVEL 32 MMOL/L (20-31); CHLORIDE LEVEL 102 MMOL/L (98-107); CHOLESTEROL LEVEL 195 MG/DL (<200); CHOLESTEROL RISK RATIO 4.22 (<5); CREATININE FOR GFR 1.61 MG/DL (0.55-1.30); GLOMERULAR FILTRATION RATE 34.5 (>45); GLUCOSE, FASTING 97 MG/DL (74-106); HDL CHOLESTEROL 46.1 MG/DL (>40); LDL CHOLESTEROL 125.1 MG/DL (<100); MAU/CREAT RATIO 20.1 MCG/MG (0.0-30.0); NON-HDL-C 149 MG/DL; POTASSIUM SERUM 5.3 MMOL/L (3.5-5.1); SODIUM LEVEL 139 MMOL/L (136-145); TRIGLYCERIDES LEVEL 119 MG/DL (<150)
== END ==
LOC: M SFHCADAM 10:01
PROVIDERS: ATTEND Physician Assistant
DX: I12.9 Hypertensive chronic kidney disease with stage 1 through stage 4 chronic kidney disease, or unspecified chronic kidney disease (principal); N18.4 Chronic kidney disease, stage 4 (severe); E03.9 Hypothyroidism, unspecified; Z23 Encounter for immunization; Z13.220 Encounter for screening for lipoid disorders

== ENCOUNTER → 2023-01-28 | Outpatient (CLI) | payer MEDICARE | LOC: M RAD 12:58 | PROVIDERS: ATTEND Physician Assistant | DX: N18.4 Chronic kidney disease, stage 4 (severe) (principal) ==

== ENCOUNTER → 2023-04-01 | Outpatient (REF) | payer MEDICARE ==
[2023-04-01 16:48] LABS: HEMATOCRIT 38.4 % (36.0-47.0); HEMOGLOBIN 12.1 g/dl (12.0-15.5); MEAN CORPUSCULAR HEMOGLOBIN 33.3 pg (27.0-33.0); MEAN CORPUSCULAR HGB CONC 31.5 g/dl (32.0-36.5); MEAN CORPUSCULAR VOLUME 105.8 fl (80.0-96.0); PLATELET COUNT, AUTOMATED 261 10^3/uL (150-450); RED BLOOD COUNT 3.63 10^6/uL (4.00-5.40); WHITE BLOOD COUNT 8.6 10^3/uL (4.0-10.0)
[2023-04-01 17:11] LABS: CALCIUM LEVEL 9.6 MG/DL (8.3-10.6); CREATININE FOR GFR 1.44 MG/DL (0.55-1.30); GLOMERULAR FILTRATION RATE 39.3 (>45); POTASSIUM SERUM 4.9 MMOL/L (3.5-5.1)
[2023-04-01 17:14] LABS: FREE T4 0.96 NG/DL (0.89-1.76)
[2023-04-01 17:15] LABS: THYROID STIMULATING HORMONE 4.315 uIU/ML (0.55-4.78)
== END ==
LOC: M SFHCADAM 14:52
PROVIDERS: ATTEND Physician Assistant
DX: E03.9 Hypothyroidism, unspecified (principal); I12.9 Hypertensive chronic kidney disease with stage 1 through stage 4 chronic kidney disease, or unspecified chronic kidney disease

== ENCOUNTER 2023-05-19 08:37 | Emergency (ER) | payer MEDICARE ==
[~2023-05-19] VITALS: Ht 167.6 cm; Wt 209.3 kg
[2023-05-19 08:38] VITALS: BP 132/63; TEMP 97.6; O2SAT 93
[2023-05-19] MEDS ORDERED: GABA-283 PO (08:55)
[2023-05-19] MEDS ORDERED: SYNT75TA PO (08:59)
[2023-05-19] MEDS ORDERED: METO1TAB7 PO (08:59)
[2023-05-19] MEDS ORDERED: LOSA25TA13 PO (08:59)
[2023-05-19 12:10] LABS: BASO # 0.1 10^3/uL (0.0-0.2); BASO % 0.7 % (0.0-1.0); EOS # 0.6 10^3/uL (0.0-0.5); EOS % 5.9 % (0.0-3.0); HEMATOCRIT 40.1 % (36.0-47.0); HEMOGLOBIN 12.5 g/dl (12.0-15.5); LYMPH # 1.2 10^3/uL (1.5-5.0); LYMPH % 11.8 % (24.0-44.0); MEAN CORPUSCULAR HEMOGLOBIN 33.7 pg (27.0-33.0); MEAN CORPUSCULAR HGB CONC 31.2 g/dl (32.0-36.5); MEAN CORPUSCULAR VOLUME 108.1 fl (80.0-96.0); MONO # 0.6 10^3/uL (0.0-0.8); NEUTROPHILS # 7.3 10^3/uL (1.5-8.5); NEUTROPHILS % 74.9 % (36.0-66.0); PLATELET COUNT, AUTOMATED 269 10^3/uL (150-450); RED BLOOD COUNT 3.71 10^6/uL (4.00-5.40); WHITE BLOOD COUNT 9.8 10^3/uL (4.0-10.0)
[2023-05-19 12:33] LABS: ALBUMIN 3.6 G/DL (3.2-5.2); ALKALINE PHOSPHATASE 95 U/L (46-116); ALT/SGPT 15 U/L (7.0-40); AST/SGOT 12 U/L (<34); BILIRUBIN,DIRECT < 0.1 MG/DL (<0.4); BILIRUBIN,TOTAL 0.3 MG/DL (0.3-1.2); INR 0.9; PARTIAL THROMBOPLASTIN TIME 28.6 SECONDS (24.8-34.2); PROTHROMBIN TIME 12.3 SECONDS (12.5-14.5); TOTAL PROTEIN 7.2 G/DL (5.7-8.2)
[2023-05-19 12:54] LABS: ERYTHROCYTE SEDIMENTATION RATE 73 mm/hr (0-30)
[2023-05-19] MEDS ORDERED: TRIA1OI TOP (13:39)
== END 2023-05-19 13:52 | disposition home or self-care (01) ==
LOC: M ED 08:37
DX: I83.12 Varicose veins of left lower extremity with inflammation (principal); I10 Essential (primary) hypertension; G47.33 Obstructive sleep apnea (adult) (pediatric); N18.4 Chronic kidney disease, stage 4 (severe); E66.01 Morbid (severe) obesity due to excess calories; Z79.899 Other long term (current) drug therapy

== ENCOUNTER → 2023-12-17 | Outpatient (REF) | payer MEDICARE ==
[~2023-12-17] MED LIST changes: +GABA-284 PO; +LOSA25TA13 PO; +METO1TAB7 PO; +SYNT75TA PO; +TRIA1OI TOP
[2023-12-17 19:24] LABS: BASO # 0.1 10^3/uL (0.0-0.2); BASO % 0.7 % (0.0-1.0); EOS # 0.4 10^3/uL (0.0-0.5); EOS % 3.5 % (0.0-3.0); HEMATOCRIT 41.6 % (36.0-47.0); LYMPH # 1.1 10^3/uL (1.5-5.0); LYMPH % 10.7 % (24.0-44.0); MEAN CORPUSCULAR HEMOGLOBIN 34.4 pg (27.0-33.0); MEAN CORPUSCULAR HGB CONC 31.3 g/dl (32.0-36.5); MEAN CORPUSCULAR VOLUME 110.1 fl (80.0-96.0); MONO # 0.6 10^3/uL (0.0-0.8); MONO % 5.5 % (2.0-8.0); NEUTROPHILS # 8.2 10^3/uL (1.5-8.5); NEUTROPHILS % 78.7 % (36.0-66.0); PLATELET COUNT, AUTOMATED 277 10^3/uL (150-450); RED BLOOD COUNT 3.78 10^6/uL (4.00-5.40); WHITE BLOOD COUNT 10.4 10^3/uL (4.0-10.0)
[2023-12-17 19:42] LABS: ALBUMIN 3.6 G/DL (3.2-5.2); BILIRUBIN,TOTAL 0.3 MG/DL (0.3-1.2); CALCIUM LEVEL 9.6 MG/DL (8.3-10.6); CREATININE FOR GFR 1.6 MG/DL (0.55-1.30); GLOMERULAR FILTRATION RATE 34.7 (>45); POTASSIUM SERUM 4.4 MMOL/L (3.5-5.1); TOTAL PROTEIN 7.3 G/DL (5.7-8.2)
[2023-12-17 19:43] LABS: THYROID STIMULATING HORMONE 7.443 uIU/ML (0.55-4.78)
[2023-12-17 19:45] LABS: FREE T4 0.87 NG/DL (0.89-1.76)
== END ==
LOC: M SFHCADAM 15:28
PROVIDERS: ATTEND Physician Assistant
DX: R60.0 Localized edema (principal); E03.9 Hypothyroidism, unspecified; I87.2 Venous insufficiency (chronic) (peripheral); I12.9 Hypertensive chronic kidney disease with stage 1 through stage 4 chronic kidney disease, or unspecified chronic kidney disease

== ENCOUNTER → 2023-12-18 | Outpatient (REF) | payer MEDICARE | LOC: M SFHCADAM 08:29 | PROVIDERS: ATTEND Physician Assistant | DX: R60.0 Localized edema (principal); N18.32 Chronic kidney disease, stage 3b; E03.9 Hypothyroidism, unspecified; I10 Essential (primary) hypertension; I87.2 Venous insufficiency (chronic) (peripheral); Z53.8 Procedure and treatment not carried out for other reasons ==

== ENCOUNTER 2023-12-23 15:18 | Inpatient (IN) | payer MEDICARE ==
[~2023-12-23] VITALS: Ht 162.6 cm; Wt 214.8 kg
[2023-12-23] MEDS ORDERED: VANCOMYCIN HCL 2,000 MG in IV FLUID PLACE HOLDER 1 EA IV ONE (18:35)
[2023-12-23 20:26] LABS: RSV AMPLIFICATION NEGATIVE (NEGATIVE)
[2023-12-23 20:29] LABS: BASO # 0.1 10^3/uL (0.0-0.2); BASO % 0.5 % (0.0-1.0); EOS # 0.3 10^3/uL (0.0-0.5); HEMATOCRIT 39.8 % (36.0-47.0); HEMOGLOBIN 12.9 g/dl (12.0-15.5); LYMPH % 8.3 % (24.0-44.0); MEAN CORPUSCULAR HEMOGLOBIN 35.4 pg (27.0-33.0); MEAN CORPUSCULAR HGB CONC 32.4 g/dl (32.0-36.5); MEAN CORPUSCULAR VOLUME 109.3 fl (80.0-96.0); MONO # 0.6 10^3/uL (0.0-0.8); NEUTROPHILS # 9.5 10^3/uL (1.5-8.5); NEUTROPHILS % 82.6 % (36.0-66.0); PLATELET COUNT, AUTOMATED 257 10^3/uL (150-450); RED BLOOD COUNT 3.64 10^6/uL (4.00-5.40); WHITE BLOOD COUNT 11.5 10^3/uL (4.0-10.0)
[2023-12-23] MEDS: VANCOMYCIN HCL 1,000 MG, VIAL MATE ADAPTER 1 EACH in D5W 250 ML IV ONE ×2 (20:35→21:57)
[2023-12-23 20:37] LABS: ERYTHROCYTE SEDIMENTATION RATE 82 mm/hr (0-30)
[2023-12-23 21:02] LABS: C REACTIVE PROTEIN QUANTITATIV 2.4 MG/DL (<1.0)
[2023-12-23 21:03] LABS: ALBUMIN 3.5 G/DL (3.2-5.2); BILIRUBIN,DIRECT 0.1 MG/DL (<0.4); BILIRUBIN,TOTAL 0.4 MG/DL (0.3-1.2); CALCIUM LEVEL 10.1 MG/DL (8.3-10.6); CREATININE FOR GFR 1.33 MG/DL (0.55-1.30); GLOMERULAR FILTRATION RATE 42.9 (>45); POTASSIUM SERUM 4.9 MMOL/L (3.5-5.1); TOTAL PROTEIN 7.1 G/DL (5.7-8.2)
[2023-12-23 21:10] LABS: PROCALCITONIN 0.11 ng/ml
[2023-12-23] MEDS: GABAPENTIN 300 MG CAP PO ONE (21:57)
[2023-12-23] MEDS: traMADol 50 MG TAB PO ONE (21:58)
[2023-12-24 03:15] VITALS: BP 145/94; TEMP 97.9; O2SAT 91
[2023-12-24] MEDS: ACETAMINOPHEN 500 MG TAB PO PRN (05:44)
[2023-12-24] MEDS: PILL CUTTER 1 EACH XX PRN (05:44)
[2023-12-24 07:27] LABS: CALCIUM LEVEL 9.7 MG/DL (8.3-10.6); CREATININE FOR GFR 1.47 MG/DL (0.55-1.30); GLOMERULAR FILTRATION RATE 38.2 (>45); POTASSIUM SERUM 4.1 MMOL/L (3.5-5.1)
[2023-12-24 07:49] VITALS: BP 128/76; TEMP 98.1; O2SAT 96
[2023-12-24] MEDS ORDERED: VANCOMYCIN HCL 1,000 MG, VIAL MATE ADAPTER 1 EACH in D5W 250 ML IV SCH (08:00)
[2023-12-24 08:05] LABS: VANCOMYCIN RANDOM 14.9 UG/ML
[2023-12-24] MEDS ORDERED: VANCOMYCIN HCL 500 MG in D5W MINI-BAG PLUS 100 ML IV SCH (10:00)
[2023-12-24] MEDS ORDERED: LEVO100T5 PO (10:06)
[2023-12-24] MEDS ORDERED: LOSA50TA28 PO (10:06)
[2023-12-24] MEDS ORDERED: TRIA1OI80 TOP (10:06)
[2023-12-24] MEDS ORDERED: AMLO1TAB25 PO (10:06)
[2023-12-24] MEDS ORDERED: GABA-282 PO (10:06)
[2023-12-24] MEDS ORDERED: DULO60CA35 PO (10:10)
[2023-12-24] MEDS ORDERED: TORS20TA2 PO (10:10)
[2023-12-24] MEDS ORDERED: SPIR-10 PO (10:10)
[2023-12-24] MEDS ORDERED: METO1TAB7 PO (10:12)
[2023-12-24] MEDS ORDERED: HOME MED LIST COMPLETE! XX SCH (10:15)
[2023-12-24] MEDS: LEVOTHYROXINE 75MCG TABLET (0.075MG) PO SCH (10:25)
[2023-12-24] MEDS: VANCOMYCIN HCL 750 MG, VIAL MATE ADAPTER 1 EACH in D5W 250 ML IV SCH (10:25)
[2023-12-24] MEDS ORDERED: CALCITRIOL 0.25 MCG CAP (S0169) PO SCH (11:05)
[2023-12-24] MEDS ORDERED: LOSARTAN 50MG TABLET PO SCH (11:05)
[2023-12-24] MEDS ORDERED: SPIRONOLACTONE 25 MG TAB PO SCH (11:05)
[2023-12-24] MEDS ORDERED: TORSEMIDE 20 MG TAB PO SCH (11:05)
[2023-12-24] MEDS ORDERED: GABAPENTIN 300 MG CAP PO SCH (11:05)
[2023-12-24] MEDS ORDERED: DULoxetine 30MG CAPSULE (CYMBALTA) PO SCH (11:05)
[2023-12-24] MEDS ORDERED: METOPROLOL SUCC (TopROL XL) 50MG **XL** TAB PO SCH (21:00)
[2023-12-24] MEDS ORDERED: TRIAMCINOLONE ACET 0.1% OINTMENT 80GM TOP SCH (21:00)
== END 2023-12-24 11:20 | disposition home health service (06) | DRG 603 ==
LOC: M ED 15:18 → M ED INP 23:38 → M MS5PR 12-24 03:15
PROVIDERS: ADMIT Internal Medicine; ATTEND Student in an Organized Health Care Education/Training Program
DX: L03.115 Cellulitis of right lower limb (principal); Z68.45 Body mass index [BMI] 70 or greater, adult; E03.9 Hypothyroidism, unspecified; E66.01 Morbid (severe) obesity due to excess calories; F32.A Depression, unspecified; F41.9 Anxiety disorder, unspecified; M54.9 Dorsalgia, unspecified; Z79.890 Hormone replacement therapy; Z79.899 Other long term (current) drug therapy

== ENCOUNTER 2023-12-24 12:08 | Outpatient (CLI) | payer MEDICARE ==
[~2023-12-24] VITALS: Ht 162.6 cm; Wt 214.8 kg
[~2023-12-24 12:08] MED LIST changes: +AMLO1TAB25 PO; +DULO60CA35 PO; +GABA-282 PO; +LEVO100T5 PO; +LOSA50TA28 PO; +SPIR-10 PO; +TORS20TA2 PO; +TRIA1OI80 TOP
[2023-12-24] MEDS: DALBAVANCIN 1,500 MG in D5W 250 ML IV ONE (13:11)
[2023-12-24 13:16] VITALS: BP_SYST 128; BP_SYST 142; BP_DIAS 76; BP_DIAS 92; TEMP 98.1; O2SAT 94
== END 2023-12-24 17:00 ==
LOC: M OPCLI5PR 12:08 → M MS5PR 12:09 → M OPCLI5PR 17:00
PROVIDERS: ATTEND Student in an Organized Health Care Education/Training Program
DX: L03.115 Cellulitis of right lower limb (principal)
CPT/HCPCS: 96365; G0378; J0875

== ENCOUNTER → 2024-01-01 | Outpatient (REF) | payer MEDICARE ==
[2024-01-01 18:06] LABS: HEMATOCRIT 43.1 % (36.0-47.0); HEMOGLOBIN 13.1 g/dl (12.0-15.5); MEAN CORPUSCULAR HEMOGLOBIN 34.1 pg (27.0-33.0); MEAN CORPUSCULAR HGB CONC 30.4 g/dl (32.0-36.5); MEAN CORPUSCULAR VOLUME 112.2 fl (80.0-96.0); PLATELET COUNT, AUTOMATED 315 10^3/uL (150-450); RED BLOOD COUNT 3.84 10^6/uL (4.00-5.40); WHITE BLOOD COUNT 8.4 10^3/uL (4.0-10.0)
[2024-01-01 18:21] LABS: ALBUMIN 3.7 G/DL (3.2-5.2); BILIRUBIN,TOTAL 0.4 MG/DL (0.3-1.2); CALCIUM LEVEL 10.6 MG/DL (8.3-10.6); CREATININE FOR GFR 1.71 MG/DL (0.55-1.30); GLOMERULAR FILTRATION RATE 32.1 (>45); POTASSIUM SERUM 5.6 MMOL/L (3.5-5.1); TOTAL PROTEIN 7.4 G/DL (5.7-8.2)
== END ==
LOC: M SFHCADAM 11:45
PROVIDERS: ATTEND Physician Assistant
DX: N18.32 Chronic kidney disease, stage 3b (principal); Z79.899 Other long term (current) drug therapy

== ENCOUNTER → 2024-02-01 | Outpatient (REF) | payer MEDICARE ==
[2024-02-01 15:19] LABS: ALBUMIN 3.9 G/DL (3.2-5.2); BILIRUBIN,TOTAL 0.4 MG/DL (0.3-1.2); CALCIUM LEVEL 10.6 MG/DL (8.3-10.6); CREATININE FOR GFR 1.53 MG/DL (0.55-1.30); GLOMERULAR FILTRATION RATE 36.5 (>45); MAGNESIUM LEVEL 2.3 MG/DL (1.8-2.4); POTASSIUM SERUM 5.3 MMOL/L (3.5-5.1); TOTAL PROTEIN 7.6 G/DL (5.7-8.2)
== END ==
LOC: M SHH 14:18
PROVIDERS: ATTEND Physician Assistant
DX: E87.5 Hyperkalemia (principal); N18.31 Chronic kidney disease, stage 3a

== ENCOUNTER 2024-02-25 11:43 | Inpatient (IN) | payer MEDICARE ==
[2024-02-25] VITALS (27 sets, daily range): BP systolic 105–140; BP diastolic 59–95; TEMP 97.4; O2SAT 90–99
[~2024-02-25] VITALS: Ht 172.7 cm; Wt 212.6 kg
[~2024-02-25 11:43] MED LIST changes: +DOXY-323 PO; +DOXY-440 PO; -DOXY-443 PO; -DOXY-444 PO
[2024-02-25] MEDS ORDERED: HEPARIN SOD (PORCINE) 5000UNITS/ML 1ML VIAL/SYRINGE IV PRN (12:15)
[2024-02-25 13:02] LABS: ABG BASE EXCESS 0.4 (-2.0-2.0); ABG HCO3 31.9 MMOL/L (22.0-26.0); ABG O2 SATURATION 98.6 % (95.0-99.0); ABG PARTIAL PRESSURE O2 151.6 mmHg (75.0-100.0); ABG STANDARD HCO3 24.8 MMOL/L. (22.0-26.0); ABG TOTAL CO2 34.7 MMOL/L (23.0-31.0)
[2024-02-25 13:04] LABS: ABG PARTIAL PRESSURE CO2 92.2 mmHg (35.0-45.0); ABG pH (ARTERIAL) 7.157 UNITS (7.350-7.450)
[2024-02-25] MEDS: FUROSEMIDE 40MG/4ML VIAL IV ONE (13:05)
[2024-02-25 13:06] LABS: BASO # 0.1 10^3/uL (0.0-0.2); BASO % 0.7 % (0.0-1.0); EOS # 0.1 10^3/uL (0.0-0.5); EOS % 1.1 % (0.0-3.0); HEMATOCRIT 43.7 % (36.0-47.0); HEMOGLOBIN 12.7 g/dl (12.0-15.5); LYMPH # 0.9 10^3/uL (1.5-5.0); LYMPH % 6.8 % (24.0-44.0); MEAN CORPUSCULAR HEMOGLOBIN 32.2 pg (27.0-33.0); MEAN CORPUSCULAR HGB CONC 29.1 g/dl (32.0-36.5); MEAN CORPUSCULAR VOLUME 110.9 fl (80.0-96.0); MONO # 0.8 10^3/uL (0.0-0.8); MONO % 5.8 % (2.0-8.0); NEUTROPHILS # 10.9 10^3/uL (1.5-8.5); NEUTROPHILS % 83.9 % (36.0-66.0); PLATELET COUNT, AUTOMATED 320 10^3/uL (150-450); RED BLOOD COUNT 3.94 10^6/uL (4.00-5.40)
[2024-02-25] MEDS: HEPARIN SOD (PORCINE) 5000UNITS/ML 1ML VIAL/SYRINGE IV ONE (13:09)
[2024-02-25] MEDS: HEPARIN DRIP 25,000 UNITS in IV 1 EA IV SCH (13:12)
[2024-02-25 13:19] LABS: INR 1.12
[2024-02-25] MEDS ORDERED: TRAM50TA2 PO (13:19)
[2024-02-25] MEDS ORDERED: HOME MED LIST COMPLETE! XX SCH (13:35)
[2024-02-25 13:40] LABS: ALBUMIN 3.5 G/DL (3.2-5.2); ALKALINE PHOSPHATASE 107 U/L (46-116); ALT/SGPT 20 U/L (7.0-40); AST/SGOT 17 U/L (<34); BILIRUBIN,DIRECT 0.2 MG/DL (<0.4); BILIRUBIN,TOTAL 0.5 MG/DL (0.3-1.2); BLOOD UREA NITROGEN 30 MG/DL (9-23); CALCIUM LEVEL 10.2 MG/DL (8.3-10.6); CARBON DIOXIDE LEVEL 38 MMOL/L (20-31); CHLORIDE LEVEL 97 MMOL/L (98-107); CK-MB VALUE MASS < 1.0 NG/ML (<3.6); CREATININE FOR GFR 1.55 MG/DL (0.55-1.30); GLUCOSE, FASTING 131 MG/DL (74-106); SODIUM LEVEL 138 MMOL/L (136-145); TOTAL PROTEIN 7.3 G/DL (5.7-8.2)
[2024-02-25 13:42] LABS: FREE T4 0.92 NG/DL (0.89-1.76); THYROID STIMULATING HORMONE 4.815 uIU/ML (0.55-4.78)
[2024-02-25 13:48] LABS: CPK CREATINE PHOSPHOKINASE 36 U/L (34-145); MB/CK RELATIVE INDEX 2.77 (< OR =4)
[2024-02-25 14:13] LABS: PROCALCITONIN 0.11 ng/ml
[2024-02-25 14:44] LABS: ABG BASE EXCESS -3.3 (-2.0-2.0); ABG O2 SATURATION 98.3 % (95.0-99.0); ABG PARTIAL PRESSURE O2 149.4 mmHg (75.0-100.0); ABG STANDARD HCO3 21.8 MMOL/L. (22.0-26.0); ABG TOTAL CO2 31.9 MMOL/L (23.0-31.0)
[2024-02-25] MEDS: cefTRIAXone SOD 1 GM in D5W MINI-BAG PLUS 50 ML IV ONE (14:45)
[2024-02-25 14:47] LABS: ABG PARTIAL PRESSURE CO2 96.1 mmHg (35.0-45.0); ABG pH (ARTERIAL) 7.097 UNITS (7.350-7.450)
[2024-02-25] MEDS ORDERED: LIDOCAINE 4% CREAM 5GM (LMX4) As Ordered ONE (14:59)
[2024-02-25] MEDS: PATIROMER SORBITEX CALCIUM 8.4 GM POWDER PACKET (VELTASSA) PO ONE (15:00)
[2024-02-25] MEDS ORDERED: MIDAZOLAM 5MG/ML 1ML VIAL As Ordered ONE (15:00)
[2024-02-25] MEDS: MIDAZOLAM INJ 2MG/2ML VIAL IV ONE (15:05)
[2024-02-25] MEDS: LIDOCAINE 2% 5ML JELLY UROJET TOP ONE (15:10)
[2024-02-25 15:15] LABS: CK-MB VALUE MASS 1.1 NG/ML (<3.6)
[2024-02-25 15:18] LABS: MB/CK RELATIVE INDEX 4.4 (< OR =4)
[2024-02-25] MEDS ORDERED: LIDOCAINE 2% INJ 100 MG/5 ML SYRINGE ONE (15:31)
[2024-02-25] MEDS: MIDAZOLAM 100MG/100ML-0.9%NACL 100 MG in IV 1 EA IV SCH (15:31)
[2024-02-25] MEDS: ETOMIDATE INJ 20MG/10ML VIAL IV ONE (15:31)
[2024-02-25] MEDS: NS 500 ML IV ONE (15:32)
[2024-02-25] MEDS ORDERED: HEPARIN SOD (PORCINE) 5000UNITS/ML 1ML VIAL/SYRINGE SC SCH (15:50)
[2024-02-25] MEDS ORDERED: FENTANYL DRIP LOCK BOX KEY 1 EACH XX PRN (15:50)
[2024-02-25] MEDS: NOREPINEPHRINE 4MG IN D5 250ML 4 MG in IV 1 EA IV SCH (15:54)
[2024-02-25 16:41] LABS: VENOUS BASE EXCESS 0.5 (-2.0-2.0); VENOUS O2 SATURATION 89.4 % (60.0-80.0); VENOUS PARTIAL PRESSURE CO2 92.3 mmHg (38.0-50.0); VENOUS PARTIAL PRESSURE O2 70.8 mmHg (30.0-50.0); VENOUS PH 7.158 UNITS (7.330-7.430); VENOUS STANDARD HCO3 24.8 MMOL/L; VENOUS TOTAL CO2 34.8 MMOL/L (24.0-28.0)
[2024-02-25] MEDS: propofoL 1,000 MG in IV 1 EA IV SCH (18:07)
[2024-02-25] MEDS: DOXYCYCLINE HYCLATE 100 MG in D5W MINI-BAG PLUS 100 ML IV ONE (18:18)
[2024-02-25] MEDS: PANTOPRAZOLE 40MG VIAL IV SCH (18:18)
[2024-02-25 18:31] LABS: VENOUS BASE EXCESS 5.1 (-2.0-2.0); VENOUS HCO3 32.6 MMOL/L (23.0-27.0); VENOUS O2 SATURATION 94.4 % (60.0-80.0); VENOUS PARTIAL PRESSURE CO2 61.2 mmHg (38.0-50.0); VENOUS PARTIAL PRESSURE O2 72.7 mmHg (30.0-50.0); VENOUS PH 7.344 UNITS (7.330-7.430); VENOUS TOTAL CO2 34.5 MMOL/L (24.0-28.0)
[2024-02-25 19:08] LABS: CALCIUM LEVEL 9.8 MG/DL (8.3-10.6); CREATININE FOR GFR 1.52 MG/DL (0.55-1.30); GLOMERULAR FILTRATION RATE 36.8 (>45); MAGNESIUM LEVEL 2.1 MG/DL (1.8-2.4); PHOSPHORUS LEVEL 4.1 MG/DL (2.4-5.1)
[2024-02-25] MEDS: HEPARIN SOD (PORCINE) 5000UNITS/ML 1ML VIAL/SYRINGE IV PRN (19:24)
[2024-02-25] MEDS: FUROSEMIDE 100MG/10ML VIAL IV SCH (20:08)
[2024-02-26] VITALS (71 sets, daily range): BP systolic 63–154; BP diastolic 37–95; TEMP 97.5–100.9; O2SAT 90–100
[2024-02-26] MEDS: HEPARIN DRIP 25,000 UNITS in IV 1 EA IV SCH (03:55)
[2024-02-26 04:14] LABS: HEMATOCRIT 38.7 % (36.0-47.0); HEMOGLOBIN 12.1 g/dl (12.0-15.5)
[2024-02-26 05:09] LABS: CALCIUM LEVEL 9.6 MG/DL (8.3-10.6); CREATININE FOR GFR 1.51 MG/DL (0.55-1.30); GLOMERULAR FILTRATION RATE 37.1 (>45); MAGNESIUM LEVEL 1.9 MG/DL (1.8-2.4)
[2024-02-26] MEDS: LEVOTHYROXINE 100MCG TABLET (0.1MG) PO SCH (05:54)
[2024-02-26] MEDS: dexmedeTOMidine 200 MCG in IV 1 EA IV SCH (09:00)
[2024-02-26] MEDS ORDERED: dexmedeTOMIDine (4MCG/ML)200MCG/50ML BTL (PRECEDEX) As Ordered ONE (09:05)
[2024-02-26] MEDS: cefTRIAXone SOD 2 GM in D5W MINI-BAG PLUS 50 ML IV SCH (16:15)
[2024-02-26] MEDS: NOREPINEPHRINE 4MG IN D5 250ML 4 MG in IV 1 EA IV SCH (16:33)
[2024-02-26] MEDS: METOPROLOL TART 25 MG TABLET PO ONE (16:45)
[2024-02-26] MEDS: MIDAZOLAM INJ 2MG/2ML VIAL IV PRN (16:46)
[2024-02-26] MEDS: AZITHROMYCIN INJ 500 MG, VIAL MATE ADAPTER 1 EACH in NS 250 ML IV SCH (17:01)
[2024-02-26] MEDS: fentaNYL 100 MCG/2 ML INJECTION IV PRN (18:33)
[2024-02-26 19:11] LABS: CALCIUM LEVEL 9.4 MG/DL (8.3-10.6); CREATININE FOR GFR 1.63 MG/DL (0.55-1.30); GLOMERULAR FILTRATION RATE 33.9 (>45); MAGNESIUM LEVEL 1.8 MG/DL (1.8-2.4); POTASSIUM SERUM 3.7 MMOL/L (3.5-5.1)
[2024-02-26] MEDS: ENOXAPARIN 60MG/0.6ML SYRINGE (J1650 PER 10MG) SC SCH (19:58)
[2024-02-26] MEDS: METOPROLOL TART 25 MG TABLET PO SCH (22:52)
[2024-02-27] VITALS (73 sets, daily range): BP systolic 84–165; BP diastolic 51–100; TEMP 99.3–100.9; O2SAT 90–99
[2024-02-27] MEDS: ALBUTEROL SULFATE 2.5MG/0.5ML INH NEB SOLN NEB SCH (01:52)
[2024-02-27] MEDS: MAG SULF 1GM/100ML (MAG RUN) 1 GM in IV 1 EA IV SCH (02:10)
[2024-02-27 06:21] LABS: CALCIUM LEVEL 9.5 MG/DL (8.3-10.6); CREATININE FOR GFR 1.65 MG/DL (0.55-1.30); GLOMERULAR FILTRATION RATE 33.4 (>45); POTASSIUM SERUM 4.1 MMOL/L (3.5-5.1)
[2024-02-27 06:28] LABS: ABG BASE EXCESS 7.7 (-2.0-2.0); ABG HCO3 33.1 MMOL/L (22.0-26.0); ABG PARTIAL PRESSURE CO2 49.6 mmHg (35.0-45.0); ABG PARTIAL PRESSURE O2 110.3 mmHg (75.0-100.0); ABG STANDARD HCO3 31.5 MMOL/L. (22.0-26.0); ABG TOTAL CO2 34.6 MMOL/L (23.0-31.0); ABG pH (ARTERIAL) 7.442 UNITS (7.350-7.450)
[2024-02-27] MEDS ORDERED: HEPARIN SOD (PORCINE) 5000UNITS/ML 1ML VIAL/SYRINGE IV ONE (08:55)
[2024-02-27] MEDS ORDERED: METOPROLOL SUCC (TopROL XL) 50MG **XL** TAB PO SCH (09:00)
[2024-02-27] MEDS: DEXMEDETOMIDINE IV SCH (10:00)
[2024-02-27] MEDS: METOPROLOL TART 12.5 MG PER 1/2 TAB PO SCH (11:13)
[2024-02-27] MEDS: HEPARIN DRIP 25,000 UNITS in IV 1 EA IV SCH (11:15)
[2024-02-27] MEDS ORDERED: ACETAMINOPHEN TAB 650MG DOSE (2X325MG) PO PRN (16:55)
[2024-02-27] MEDS: ACETAMINOPHEN 325MG/10.15ML UDC GT PRN (17:52)
[2024-02-27] MEDS: HEPARIN SOD (PORCINE) 5000UNITS/ML 1ML VIAL/SYRINGE IV PRN (18:54)
[2024-02-28] VITALS (97 sets, daily range): BP systolic 73–142; BP diastolic 43–94; TEMP 98.4–100.6; O2SAT 89–100
[2024-02-28 04:39] LABS: BASO # 0.1 10^3/uL (0.0-0.2); BASO % 0.5 % (0.0-1.0); EOS # 0.2 10^3/uL (0.0-0.5); EOS % 1.5 % (0.0-3.0); HEMATOCRIT 36.6 % (36.0-47.0); HEMOGLOBIN 11.1 g/dl (12.0-15.5); LYMPH # 0.9 10^3/uL (1.5-5.0); LYMPH % 6.9 % (24.0-44.0); MEAN CORPUSCULAR HEMOGLOBIN 31.8 pg (27.0-33.0); MEAN CORPUSCULAR HGB CONC 30.3 g/dl (32.0-36.5); MEAN CORPUSCULAR VOLUME 104.9 fl (80.0-96.0); MONO # 0.8 10^3/uL (0.0-0.8); MONO % 6.6 % (2.0-8.0); NEUTROPHILS # 10.4 10^3/uL (1.5-8.5); NEUTROPHILS % 83.9 % (36.0-66.0); PLATELET COUNT, AUTOMATED 207 10^3/uL (150-450); RED BLOOD COUNT 3.49 10^6/uL (4.00-5.40); WHITE BLOOD COUNT 12.4 10^3/uL (4.0-10.0)
[2024-02-28 05:05] LABS: CREATININE FOR GFR 1.36 MG/DL (0.55-1.30); GLOMERULAR FILTRATION RATE 41.8 (>45); POTASSIUM SERUM 4.1 MMOL/L (3.5-5.1)
[2024-02-28] MEDS ORDERED: LIDOCAINE 1% MDV 20ML VIAL As Ordered ONE (13:17)
[2024-02-28] MEDS: LIDOCAINE 1% MDV 20ML VIAL SC ONE (13:22)
[2024-02-29] VITALS (101 sets, daily range): BP systolic 76–144; BP diastolic 40–76; TEMP 98–99; O2SAT 87–99
[2024-02-29 06:16] LABS: BASO % 0.3 % (0.0-1.0); EOS # 0.4 10^3/uL (0.0-0.5); EOS % 3.3 % (0.0-3.0); HEMOGLOBIN 10.7 g/dl (12.0-15.5); LYMPH # 0.7 10^3/uL (1.5-5.0); MEAN CORPUSCULAR HEMOGLOBIN 31.9 pg (27.0-33.0); MEAN CORPUSCULAR HGB CONC 30.6 g/dl (32.0-36.5); MEAN CORPUSCULAR VOLUME 104.5 fl (80.0-96.0); MONO # 0.4 10^3/uL (0.0-0.8); MONO % 3.6 % (2.0-8.0); NEUTROPHILS # 10.3 10^3/uL (1.5-8.5); NEUTROPHILS % 86.2 % (36.0-66.0); PLATELET COUNT, AUTOMATED 181 10^3/uL (150-450); RED BLOOD COUNT 3.35 10^6/uL (4.00-5.40)
[2024-02-29 06:52] LABS: CALCIUM LEVEL 8.4 MG/DL (8.3-10.6); CREATININE FOR GFR 1.13 MG/DL (0.55-1.30); GLOMERULAR FILTRATION RATE 51.8 (>45); POTASSIUM SERUM 3.5 MMOL/L (3.5-5.1)
[2024-02-29] MEDS: CETACAINE SPRAY 5GM TOP ONE (12:00)
[2024-02-29] MEDS: FUROSEMIDE 40MG/4ML VIAL IV ONE (12:42)
[2024-02-29] MEDS: KCL 20MEQ IN 100ML SWI (KRUN) 20 MEQ in IV 1 EA IV ONE (12:42)
[2024-03-01] VITALS (95 sets, daily range): BP systolic 77–119; BP diastolic 40–75; TEMP 97.5–99; O2SAT 90–99
[2024-03-01 06:48] LABS: CALCIUM LEVEL 8.6 MG/DL (8.3-10.6); CREATININE FOR GFR 1.1 MG/DL (0.55-1.30); GLOMERULAR FILTRATION RATE 53.4 (>45); MAGNESIUM LEVEL 1.8 MG/DL (1.8-2.4); POTASSIUM SERUM 3.7 MMOL/L (3.5-5.1)
[2024-03-01] MEDS: FUROSEMIDE 40MG/4ML VIAL IV SCH (08:36)
[2024-03-01] MEDS: MILRINONE/DEXTROSE 20 MG in IV 1 EA IV SCH (17:40)
[2024-03-01 18:37] LABS: CALCIUM LEVEL 8.6 MG/DL (8.3-10.6); CREATININE FOR GFR 1.09 MG/DL (0.55-1.30); MAGNESIUM LEVEL 1.7 MG/DL (1.8-2.4); PHOSPHORUS LEVEL 2.6 MG/DL (2.4-5.1); POTASSIUM SERUM 4.2 MMOL/L (3.5-5.1)
[2024-03-01] MEDS: MAG SULF 1GM/100ML (MAG RUN) 1 GM in IV 1 EA IV ONE (20:09)
[2024-03-01] MEDS: fentaNYL CITRATE/NaCl 1,000 MCG in IV 1 EA IV SCH (22:03)
[2024-03-02] VITALS (98 sets, daily range): BP systolic 79–146; BP diastolic 44–76; TEMP 97.6–99.9; O2SAT 85–98
[2024-03-02] MEDS: NYSTATIN 100,000 UNITS/GM TOPICAL PWD 15GM TOP SCH (06:00)
[2024-03-02 06:44] LABS: CALCIUM LEVEL 8.7 MG/DL (8.3-10.6); CREATININE FOR GFR 1.1 MG/DL (0.55-1.30); GLOMERULAR FILTRATION RATE 53.4 (>45); MAGNESIUM LEVEL 1.8 MG/DL (1.8-2.4); POTASSIUM SERUM 3.5 MMOL/L (3.5-5.1)
[2024-03-02] MEDS: MAG SULF 1GM/100ML (MAG RUN) 1 GM in IV 1 EA IV ONE (08:23)
[2024-03-02] MEDS: FUROSEMIDE 40MG/4ML VIAL IV SCH (08:24)
[2024-03-02] MEDS ORDERED: FUROSEMIDE 100MG/10ML VIAL IV ONE (09:00)
[2024-03-02] MEDS: KCL 20MEQ IN 100ML SWI (KRUN) 20 MEQ in IV 1 EA IV SCH (10:51)
[2024-03-02] MEDS: dexmedeTOMidine 200 MCG in IV 1 EA IV SCH (11:54)
[2024-03-02] MEDS: CETACAINE SPRAY 5GM TOP ONE (16:08)
[2024-03-03] VITALS (94 sets, daily range): BP systolic 90–160; BP diastolic 51–89; TEMP 98.6–99; O2SAT 86–97
[2024-03-03 05:34] LABS: CALCIUM LEVEL 9.2 MG/DL (8.3-10.6); CREATININE FOR GFR 1.1 MG/DL (0.55-1.30); GLOMERULAR FILTRATION RATE 53.4 (>45); MAGNESIUM LEVEL 1.9 MG/DL (1.8-2.4)
[2024-03-03] MEDS: DEXMEDETOMIDINE IV SCH ×2 (07:25→23:51)
[2024-03-03] MEDS ORDERED: HEPARIN SOD (PORCINE) 5000UNITS/ML 1ML VIAL/SYRINGE SQ SCH (09:00)
[2024-03-03] MEDS: ENOXAPARIN 150MG/ML SYRINGE SC SCH (11:02)
[2024-03-03 11:17] LABS: CENTRAL VEN BASE EXCESS 8.1
[2024-03-03] MEDS: dexmedeTOMidine 200 MCG in IV 1 EA IV SCH (23:10)
[2024-03-03] MEDS ORDERED: DEXMEDETOMIDINE IV SCH (23:58)
[2024-03-04] VITALS (34 sets, daily range): BP systolic 109–169; BP diastolic 56–90; TEMP 98.1–98.6; O2SAT 83–98
[2024-03-04 04:27] LABS: BASO # 0.1 10^3/uL (0.0-0.2); BASO % 0.5 % (0.0-1.0); EOS # 0.4 10^3/uL (0.0-0.5); EOS % 4.1 % (0.0-3.0); HEMATOCRIT 33.3 % (36.0-47.0); HEMOGLOBIN 10.2 g/dl (12.0-15.5); LYMPH # 0.8 10^3/uL (1.5-5.0); LYMPH % 7.8 % (24.0-44.0); MEAN CORPUSCULAR HEMOGLOBIN 32.1 pg (27.0-33.0); MEAN CORPUSCULAR HGB CONC 30.6 g/dl (32.0-36.5); MEAN CORPUSCULAR VOLUME 104.7 fl (80.0-96.0); MONO # 0.8 10^3/uL (0.0-0.8); MONO % 8.4 % (2.0-8.0); NEUTROPHILS # 7.8 10^3/uL (1.5-8.5); NEUTROPHILS % 78.4 % (36.0-66.0); PLATELET COUNT, AUTOMATED 243 10^3/uL (150-450); RED BLOOD COUNT 3.18 10^6/uL (4.00-5.40); WHITE BLOOD COUNT 9.9 10^3/uL (4.0-10.0)
[2024-03-04 05:01] LABS: ALBUMIN 2.1 G/DL (3.2-5.2); BILIRUBIN,TOTAL 0.7 MG/DL (0.3-1.2); CALCIUM LEVEL 9.3 MG/DL (8.3-10.6); CREATININE FOR GFR 1.03 MG/DL (0.55-1.30); GLOMERULAR FILTRATION RATE 57.6 (>45); MAGNESIUM LEVEL 1.9 MG/DL (1.8-2.4); PHOSPHORUS LEVEL 3.3 MG/DL (2.4-5.1); POTASSIUM SERUM 4.7 MMOL/L (3.5-5.1)
[2024-03-04] MEDS ORDERED: SILDENAFIL CITRATE 20 MG TABLET (REVATIO) PO SCH (09:00)
[2024-03-04] MEDS: MORPHINE 10 MG/ML 1ML VIAL IV PRN (12:11)
[2024-03-04] MEDS ORDERED: LORazepam 2 MG/ML 1ML VIAL IV PRN (13:00)
[2024-03-04] MEDS ORDERED: SCOPOLAMINE 1MG TRANSDERMAL PATCH TOP PRN (13:00)
[2024-03-04] MEDS ORDERED: MORPHINE 10 MG/ML 1ML VIAL IV PRN (14:00)
== END 2024-03-04 12:52 | disposition expired | DRG 870 ==
LOC: EDBD 11:43 → M ED 11:43 → M ED INP 15:48 → ENRESERV 16:07 → M ICU 17:30
PROVIDERS: ADMIT Internal Medicine Pulmonary Disease; ATTEND Internal Medicine Pulmonary Disease
PROC: 5A1955Z Respiratory Ventilation, Greater than 96 Consecutive Hours (ICD-10-PCS; principal; 2024-02-25)
PROC: 0BH17EZ Insertion of Endotracheal Airway into Trachea, Via Natural or Artificial Opening (ICD-10-PCS; 2024-02-25)
PROC: B246ZZZ Ultrasonography of Right and Left Heart (ICD-10-PCS; 2024-03-01)
DX: A41.9 Sepsis, unspecified organism (principal); J96.22 Acute and chronic respiratory failure with hypercapnia; J18.9 Pneumonia, unspecified organism; G93.41 Metabolic encephalopathy; Z68.45 Body mass index [BMI] 70 or greater, adult; E66.2 Morbid (severe) obesity with alveolar hypoventilation; N39.0 Urinary tract infection, site not specified; E87.29 Other acidosis; D64.9 Anemia, unspecified; I48.91 Unspecified atrial fibrillation; R57.0 Cardiogenic shock; Z66 Do not resuscitate; I83.018 Varicose veins of right lower extremity with ulcer other part of lower leg; I50.811 Acute right heart failure; E03.9 Hypothyroidism, unspecified; M54.9 Dorsalgia, unspecified; F32.A Depression, unspecified; F41.9 Anxiety disorder, unspecified; R26.89 Other abnormalities of gait and mobility; I11.0 Hypertensive heart disease with heart failure; Z79.890 Hormone replacement therapy; Z79.899 Other long term (current) drug therapy